=== PATIENT | male | born 1945 | race Caucasian/White ===

== ENCOUNTER 2017-03-08 22:17 | Inpatient (IN) | payer OTHER, MEDICARE ==
[~2017-03-08] VITALS: Ht 180.3 cm; Wt 110.7 kg
[~2017-03-08 22:17] MED LIST: ACETAMINOPHEN325 M1 PO; ASPIR 8181 MG PO; ASPIRIN325 PO; COLACE100 MG PO; DOXYCYCLINE 10100 M1 PO; DYAZIDE 37.5-21 EACH PO; FERROUS SULFAT325 MG PO; FLOMAX0.4 MG PO; GLIPIZIDE 10 MG10 MG PO; GLUCOPHAGE1000 MG PO; LANTUS100 UNIT/M SUBQ; MAG-AL PLUS XS30 ML PO; MAXZIDE-25 MG1 EACH PO; METFORMIN HCL500 MG PO; MOM PO; NAPROSYN500 MG PO; NEURONTIN 300300 M1 PO; NEURONTIN600 MG PO; NORCO 5-325 TA1 EACH PO; NOVOLOG100 UNIT/1 SUBQ; PANTOPRAZOLE SO40 M1 PO; PERCOCET 7.5-31 EACH PO; TRAMADOL 50 MG50 MG PO; TYLENOL325 MG PO; VITAMIN D310000 UNIT PO; XARELTO10 MG PO; ZESTRIL40 MG PO; ZOCOR40 MG PO; ZOCOR80 MG PO; ZOSYN 3.3753.375 GM IV
[2017-03-08 22:20] VITALS: BP 91/30
[2017-03-08 23:05] LABS: HEMATOCRIT 29.9 % (42.0-52.0); HEMOGLOBIN 9.4 gm/dL (14.0-18.0); MCH 26.2 pg (26.0-34.0); MCHC 31.3 g/dL (28.0-37.0); MCV 83.9 fL (80.0-100.0); MPV 8.8 fl. (7.2-11.1); NUCLEATED RBCS 0 /100WBC; PLATELET COUNT* 136 thou/uL (150-400); RBC 3.56 mil/uL (4.50-6.00); WBC 8.1 thou/uL (4.0-11.0)
[2017-03-08 23:12] LABS: CALCIUM 8.8 mg/dL (8.5-10.1); CREATININE 2.3 mg/dL (0.6-1.3); POTASSIUM 5.2 mmol/L (3.5-5.1)
--- NOTE | 2017-03-08 23:30 | NUR ---
PT GIVEN PATRICIO CRACKERS, JUICE AND TURKEY SANDWICH TO ADDRESS LOW BLOOD SUGAR. PT REPORTS TAKING INSULIN EARLIER THOUGH HE DIDN'T FEEL WELL AND DID NOT EAT.
[2017-03-09] MEDS ORDERED: ATORVASTATIN CA40 MG PO (00:08)
[2017-03-09 00:47] LABS: ABSOLUTE LYMPHOCYTES 0.6 thou/uL (0.8-5.3); ABSOLUTE MONOCYTES 0.2 thou/uL (0.0-1.2); ABSOLUTE NEUTROPHILS 7.4 thou/uL (1.6-8.1); ANISOCYTOSIS 1+; HYPOCHROMASIA 2+; PLATELET ESTIMATE DECREASED; TOXIC GRANULATION Occasional
[2017-03-09 04:00] VITALS: BP 105/36
--- NOTE | 2017-03-09 04:04 | NUR ---
PATIENT LEFT THE ICU VIA STRETCHER, ACCOMPANIED BY THE RN. VITALS FOLLOWS. HR 91 AND IRREGULAR, 97% ON 3L NC, 20R, 105/36 BP. TEMP OF 98.0. PATIENT AND FAMILY VERBALIZED UNDERSTANDING OF DISCHARGE
[2017-03-09 05:05] LABS: HEMATOCRIT 26.5 % (42.0-52.0); HEMOGLOBIN 8.5 gm/dL (14.0-18.0); MCH 27.1 pg (26.0-34.0); MCHC 32.1 g/dL (28.0-37.0); MCV 84.3 fL (80.0-100.0); MPV 9.6 fl. (7.2-11.1); RBC 3.14 mil/uL (4.50-6.00); RDW-CV 15.9 % (10.5-14.5)
[2017-03-09 05:26] LABS: ALBUMIN 2.5 g/dL (3.4-5.0); CREATININE 2.3 mg/dL (0.6-1.3); TOTAL BILIRUBIN 0.5 mg/dL (<0.1-1.0); TOTAL PROTEIN 5.8 g/dL (6.4-8.2)
[2017-03-09 06:00] VITALS: BP 117/37
[2017-03-09 06:01] LABS: URINE BILIRUBIN NEGATIVE (Negative); URINE BLOOD NEGATIVE (Negative); URINE CLARITY CLEAR; URINE COLOR DARK YELLOW; URINE GLUCOSE-RANDOM NEGATIVE (Negative); URINE KETONES TRACE (Negative); URINE LEUKOCYTES-REFLEX NEGATIVE (Negative); URINE NITRITE-REFLEX NEGATIVE (Negative); URINE PROTEIN 1+ (Negative); URINE SPECIFIC GRAVITY >= 1.030 (1.005-1.030)
--- NOTE | 2017-03-09 06:30 | NUR ---
ADMITTED PATIENT TO THE UNITAT 0300. NURSING ADMISSION ASSESSMENT COMPLETED DOCUMENTED. VITAL SIGNS REMAIN STABLE AND BLOOD GLUCOSE LEVELS REACHING NORMAL LIMITS. IV PATENT AND INFUSING. NO COMPLAINTS OF PAIN OR DISCOMFORT. ABLE TO URINATE INDEPENDENTLY WITH THE URINAL. PROSTHETIC AT BEDSIDE, PATIENT VERBALIZED UNDERSTANDING OF USING THE CALL LIGHT FOR HELP. OXYGEN HAS BEEN TITRATED FROM 4.5 L TO 3L. PATIENT SAT STAYING AT 97-99% HEARTRATE REMAINS SINUS ARRYTHMIA.
[2017-03-09 08:00] VITALS: BP 99/75
--- NOTE | 2017-03-09 11:30 | NUR ---
PT TO ROOM 219 VIA . PT DIFFICULT TO TRANSFER FROM WC TO BED AND REQUIRES MAXIMUM ASSIST. PT'S FAMILY ASKING FOR THERAPY AND TO CONTACT [facility] WHEN CELLULITIS HEALED FOR PROSTHESIS FITTING
[2017-03-09 12:00] VITALS: BP 119/80
--- NOTE | 2017-03-09 14:10 | NUR ---
pt had 15 beat Vtach. Pt sleeping and asymptomatic. Dr Seymour notified
[2017-03-09 15:05] LABS: CALCIUM 8.2 mg/dL (8.5-10.1); CREATININE 2.2 mg/dL (0.6-1.3)
[2017-03-09 16:47] VITALS: BP 142/49
--- NOTE | 2017-03-09 18:46 | NUR ---
PT UP TO ROOM THIS AM. PT MULTIPLE LOOSE STOOLS SINCE RECEIVING KAYEXYLATE. PT REQUIRED MAXIMUM ASSIST WITH GETTING ON BSC AND WAS INSTRUCTED TO USE BEDPAN FOR SAFETY. AND DAUGHTER IN LAW AT BS AND UPDATED ON PLAN OF CARE. PT A&OX3. TOLERATING PO WELL. VOIDING PER URINAL
[2017-03-09 20:00] VITALS: BP 141/56; BP 142/62
[2017-03-10] VITALS: BP 95/50
[2017-03-10 04:00] VITALS: BP 131/63
--- NOTE | 2017-03-10 05:07 | NUR ---
ALERT AND ORIENTED. AWAKE ON AND OFF THROUGHOUT NIGHT. ORDRER FOR IV LASIX 40 MG AND TO STOP FLUIDS. CXR ORDERED, UNCHANGED FROM THE ONE IN ER 03-09-17. CONT. RESP TXMTS. NO SIGN OF DISTRESS. CONT. WITH CURRENT PLAN OF CARE.
[2017-03-10 05:24] LABS: CALCIUM 8.4 mg/dL (8.5-10.1); CREATININE 1.8 mg/dL (0.6-1.3); POTASSIUM 4.2 mmol/L (3.5-5.1)
[2017-03-10 08:00] VITALS: BP 113/49
--- NOTE | 2017-03-10 08:00 | NUR ---
VSS, ASSUMED CARE IN THE AM, ASSESSMENT PERFORMED AND CHARTED, FALL PRECAUTIONS IN PLACE AND CALL LIGHT IN REACH. PT IS A&O4 AND UP WITH 2 OR TRANSFURS WITH ONE TO BEC. PT IS TRACING SR ON THE MONITOR AND DENIES ANY PAIN AND ON RA, PT GOAL IS TO IMPROVE BREATHING AND SIT UP IN CHAIR. WILL FOLLOW WITH PLAN OF CARE.
[2017-03-10 12:01] VITALS: BP 133/33
--- NOTE | 2017-03-10 13:48 | 2DMMODE ---
[place] [address] 2 D/M-MODE ECHOCARDIOGRAM Name: LEONIDAS MERCADO Room: [address] IN [facility]#: [id number] Admission: 03/09/17 Attend Phys: Bradford Flynn Discharge: Date of : 41 Date of Service: 03/10/17 1348 Report #: [id number] THIS REPORT FOR: //name// APPROVED REPORT Study performed: 03/10/2017 10:39:06 EXAM: Comprehensive 2D, Doppler, and color-flow Echocardiogram Patient Location: In-Patient Room #: 219 Status: routine BSA: 2.31 HR: 119 bpm BP: 113/49 mmHg Rhythm: NSR Other Information Study Quality: Good Indications Dyspnea Cellulitis 2D Dimensions LVEF(%): 84.08 (>50%) IVSd: 15.04 (7-11mm) LVOT Diam: 22.03 (18-24mm) LVDd: 44.95 mm PWd: 12.09 (7-11mm) Ascending Ao: 38.85 (22-36mm) LVDs: 21.16 (25-40mm) Aortic Root: 34.22 mm Gonzalez's LVEF: 84.08 % Volumes Left Atrial Volume (Systole) LA ESV Index: 33.40 mL/m2 Aortic Valve AoV Peak Isidoro.: 2.03 m/s AO Peak Gr.: 16.47 mmHg LVOT Max P.61 mmHg AO Mean Gr.: 9.41 mmHg LVOT Mean P.21 mmHg LVOT Max V: 1.29 m/s AO V2 VTI: 29.77 cm LVOT Mean V: 0.82 m/s DAHIANA (VTI): 3.26 cm2 LVOT V1 VTI: 25.47 [place] [address] 2 D/M-MODE ECHOCARDIOGRAM Name: LEONIDAS MERCADO Room: [address] IN ..#: [id number] Admission: 03/09/17 Attend Phys: Bradford Flynn Discharge: Date of : 41 Date of Service: 03/10/17 1348 Report #: [id number] E/A Ratio: 0.91 MV Decel. Time: 279.71 ms MV E Max Isidoro.: 1.21 m/s MV PHT: 81.12 ms MVA (PHT): 2.71 cm2 TDI E/Lateral E': 13.44 E/Medial E': 13.44 Medial E' Isidoro.: 0.09 m/s Lateral E' Isidoro.: 0.09 m/s Pulmonary Valve PV Peak Isidoro.: 1.31 m/s PV Peak Gr.: 6.84 mmHg Left Ventricle The left ventricle is normal size. There is normal LV segmental wall motion. Mild concentric left ventricular hypertrophy. Left ventricular systolic function is hyperdynamic. LVEF is >70%. Grade I - abnormal relaxation pattern. Right Ventricle The right ventricle is normal size. The right ventricular systolic function is normal. Atria Left atrium is mildly dilated. Right atrium is mildly dilated. Aortic Valve Mild aortic valve sclerosis. No aortic regurgitation is present. There is no aortic valvular stenosis. Mitral Valve There is mitral annular calcification. There is no mitral valve regurgitation noted. No evidence of mitral valve stenosis. Tricuspid Valve The tricuspid valve is normal in structure. Unable to assess PA pressure. Trace tricuspid regurgitation. Pulmonic Valve The pulmonary valve is normal in structure. There is no pulmonic valvular regurgitation. Great Vessels The aortic root is normal in size. IVC is [place] [address] 2 D/M-MODE ECHOCARDIOGRAM Name: LEONIDAS MERCADO Room: [address] IN [facility]#: [id number] Admission: 03/09/17 Attend Phys: Bradford Flynn Discharge: Date of : 41 Date of Service: 03/10/17 1348 Report #: [id number] collapses with >50% inspiration Pericardium There is no pericardial effusion. <Conclusion> The left ventricle is normal size. Mild concentric left ventricular hypertrophy. Left ventricular systolic function is hyperdynamic. LVEF is >70%. Grade I - abnormal relaxation pattern. Left atrium is mildly dilated. Right atrium is mildly dilated. Mild aortic valve sclerosis. There is mitral annular calcification. <ELECTRONICALLY SIGNED> By: Carson Bacon MD, FACC 03/10/17 1348 1348 1348 Carson Bacon MD, FACC /INF
--- NOTE | 2017-03-10 14:29 | NUR ---
CM ASSESSMENT: Pt is A&O. Resides at home with his . Normally pretty independent at home. Pt uses a walker and has a wc at home that he can use. Pt has right BKA, wears prosthesis. Hx of CHCS. Hx of acute rehab. Goal is to return home, Pt requiring 2 person assist to transfer. PT/OT ordered. Pt wants to return home at dc, may need skilled stay. Following for dc needs.
[2017-03-10 16:13] VITALS: BP 162/71
--- NOTE | 2017-03-10 18:37 | NUR ---
VSS, PT HAS BECOME CONFUSED WITH A TEMP, PT IS ON 2L NC PRN, IS UP WITH TWO TO CHAIR, AND IS INCONT. PT WALKED THE UNIT WITH PT/OT ON DAY OF CARE. PT HR IS ST ON THE MONITOR, PT GOAL IS TO LOWER TEMP.
[2017-03-10 19:15] VITALS: BP 121/42
[2017-03-10 23:28] LABS: INFLUENZA A ANTIGEN None Detected (None Detect); INFLUENZA B ANTIGEN None Detected (None Detect)
[2017-03-11] VITALS: BP 129/49
[2017-03-11 04:00] VITALS: BP 120/52
[2017-03-11 05:03] LABS: CALCIUM 8.8 mg/dL (8.5-10.1); CREATININE 1.6 mg/dL (0.6-1.3); MAGNESIUM 1.5 mg/dL (1.8-2.4); POTASSIUM 4.3 mmol/L (3.5-5.1)
[2017-03-11 08:00] VITALS: BP 121/59
--- NOTE | 2017-03-11 08:00 | NUR ---
PT RESTYING IN BED, APPEARS ALERT O X 4, DENIES CHEST PAIN, SOB, PAIN OR DISCOMFORT
[2017-03-11] MEDS ORDERED: KEFLEX500 M1 PO (08:22)
[2017-03-11] MEDS ORDERED: Florastor 250MG CAPS PO (08:22)
--- NOTE | 2017-03-11 11:00 | NUR ---
SPOEK WITH PT.AND ABOUT HOME HEALTH AT DISCHARGE. THEY WERE NOT SURE HE NEEDED IT. DISCUSSED BENEFITS OF HOME HEALTH. WORKS DURING THE DAY BUT PRIOR TO HOSPITALIZATION PT.WAS SELF SUFFICIENT AT HOME. OT CAME TO WORK WITH PT. OT SAID HE DID GREAT AND WAS ABLE TO GET OUT OF BED INDEPENDENTLY,THEREFORE PT.DECLINED HOME HEALTH.
[2017-03-11 11:16] VITALS: BP 121/59
[2017-03-11 14:28] VITALS: BP 121/59
--- NOTE | 2017-03-11 15:14 | NUR ---
DR DENSON, CALLED, REQ MEDICATION CLARIFICATION. PT TO SOP METFORMIN AND LISINOPRIL..RX KEFLEX CALLED TO [facility][HARMACY WAS ALREADDY CLOSED FOR TODAY, WOULDN'T REOPEN TIL Monday03-13-17
--- NOTE | 2017-03-12 04:02 | CON ---
[address] [address] CONSULTATION Name: LEONIDAS MERCADO Room: [address] IN ..#: [id number] Admission: 03/09/17 Attend Phys: Luis Herrmann Discharge: 03/11/17 Date of : 41 Report #: [id number] THIS REPORT FOR: //name// CC: Shirley Flynn DATE OF SERVICE: 03/11/2017 INFECTIOUS DISEASE CONSULTATION REASON FOR CONSULTATION: Fever. ATTENDING PHYSICIAN: Lamont Seymour M.D. HISTORY OF PRESENT ILLNESS: A 71-year-old white man is admitted with some redness and swelling of right BKA. The patient diagnosed to have cellulitis of the right BKA stump. He is started on Rocephin and vancomycin. Currently, he is feeling fine. Denies pain at this time. He has mild dry cough. PAST MEDICAL HISTORY: Diabetes mellitus for a number of years. Chronic kidney disease. Right BKA. Obesity. Hypertension. Cigarette smoking. Peripheral vascular disease. DRUG ALLERGIES: SULFA DRUGS. MEDICATIONS: The patient is on vancomycin 1 gram IV every 12 hours, Rocephin 1 gram IV daily, also receiving saccharomyces boulardii, aspirin. pantoprazole, gabapentin, enoxaparin, insulin lispro per sliding scale, Atrovent and albuterol inhalation treatments, p.r.n. promethazine, ondansetron, bisacodyl, magnesium hydroxide, melatonin, Benadryl and morphine sulfate. SOCIAL HISTORY: for 40 years. Retired. Grown children. REVIEW OF SYSTEMS: See H and P and as above. PHYSICAL EXAMINATION: GENERAL: A well-developed, overweight man. VITAL SIGNS: Temperature maximum 100.2, down to 98.2; pulse 67; respirations 17 and BP 120/52. HEENT: Within range. NECK: Supple. LUNGS: Clear. HEART: S1, S2. No gallop. ABDOMEN: Obese, soft. No masses or megaly. GENITALIA: Deferred. RECTAL EXAMINATION: [place] [address] CONSULTATION Name: LEONIDAS MERCADO Room: [address]#: [id number] Admission: 03/09/17 Attend Phys: Luis Herrmann Discharge: 03/11/17 Date of : 41 Report #: [id number] EXTREMITIES: Right BKA stump has mild erythema over the tip and lateral aspect of the stump and this area is not particularly tender. The left leg with no open wounds. NEUROLOGIC: Grossly within normal limits. LABORATORY DATA: Sodium 143, potassium 4.2, CO2 of 25, BUN 30, creatinine 1.8 and glucose 173. Albumin 2.5 g/dL. WBC 7000, hemoglobin 8.5 and platelets 119,000. White blood cell count differential on the date of admission revealed 91% neutrophils. Rapid influenza test, not detected. MRSA screen negative. Urinalysis revealed 1+ protein, trace ketones, otherwise negative. Blood cultures x 2 obtained on admission, they are negative so far. RADIOLOGY EVALUATION: X-ray of the tibia-fibula left and left stump revealed no significant abnormalities. Vascular calcifications noted. Chest x-ray revealed cardiomegaly, vascular congestion, bibasilar atelectasis and no significant changes compared to previously. ASSESSMENT: 1. Fever, possibly secondary to cellulitis, right below-knee amputation. 2. History of right below-knee amputation. 3. Peripheral vascular disease. 4. Diabetes mellitus. 5. Chronic kidney disease. 6. Hypoalbuminemia. 7. Obesity. SUGGESTIONS: Recommend for time being should continue coverage with Rocephin and vancomycin. If cultures remain negative and thus indicating no evidence of MRSA, would continue treatment with Rocephin [address] Flynn, thank you for requesting our suggestions in the care of your patient. <ELECTRONICALLY SIGNED> By: Jesse Munoz MD 03/12/17 0402 0521 0829Jesse Munoz MD /vidhi
--- NOTE | 2017-03-20 09:12 | CON ---
[address] [address] CONSULTATION Name: LEONIDAS MERCADO Room: [address]#: [id number] Admission: 03/09/17 Attend Phys: Luis Herrmann Discharge: 03/11/17 Date of : 41 Report #: [id number] THIS REPORT FOR: //name// CC: Shirley Flynn DATE OF SERVICE: 03/09/2017 REQUESTING PHYSICIAN: Lamont Seymour M.D. REASON FOR CONSULTATION: Acute kidney injury, chronic kidney disease and hyperkalemia. HISTORY OF PRESENT ILLNESS: The patient is a 71-year-old gentleman with medical history significant for diabetes mellitus type 2, history of hypertension, history of morbid obesity, history of chronic kidney disease stage 3 with baseline creatinine around 2-2.3, presented with complaining of lower extremities stump pain and redness. The patient states that he has some fever. He told me that he twisted his right leg and then developed this pain in his stump. So, he was admitted with a diagnosis of cellulitis of his leg and sepsis. He was hypotensive on admission. He had potassium level, which was 6 and I was consulted. PAST MEDICAL HISTORY: As mentioned earlier. SOCIAL HISTORY: No current tobacco or alcohol abuse. FAMILY HISTORY: Noncontributory. REVIEW OF SYSTEMS: Positive for symptoms as mentioned earlier. MEDICATIONS: Reviewed from my standpoint, he was on lisinopril 40 mg a day and Maxzide. PHYSICAL EXAMINATION: GENERAL: Awake, alert, oriented, in no acute distress. VITAL SIGNS: His blood pressure now is 119/80, which was 91/30 on admission. His temperature now is 36.9 and he was afebrile from the beginning, heart rate 94. HEENT: Pupils are round. NECK: Fatty. LUNGS: Decreased air movements. CARDIOVASCULAR: Irregular rate. ABDOMEN: Obese, soft. EXTREMITIES: Right leg has below knee amputation and the stump area has some edema and erythema [place] [address] CONSULTATION Name: LEONIDAS MERCADO Room: [address]#: [id number] Admission: 03/09/17 Attend Phys: Luis Herrmann Discharge: 03/11/17 Date of : 41 Report #: [id number] LABORATORY DATA: His hemoglobin is 8.5, white count 7.0. Potassium 5.0 ____ 6.0 yesterday, BUN 36, creatinine 2.2. ASSESSMENT: A 71-year-old diabetic with chronic kidney disease stage 3, admitted with redness, hypotension and some edema of his right leg stump and mildly hyperkalemic. I think he may have some acute component of his kidney problem due to hypotension. His hyperkalemia is probably due to lisinopril and hypotension with acute kidney injury. So, plan for now, I would keep him off SHEELA inhibitors or angiotensin receptor zenaida. Keep him on low potassium diet and follow on his labs. Thank you very much for asking my opinion on the patient. <ELECTRONICALLY SIGNED> By: Gavino Coelho MD 03/20/17 0912 1611 0113Alexdagoberto Coelho MD /PMT
== END 2017-03-11 15:07 | disposition home or self-care (01) | DRG 871 ==
LOC: M.ERS 22:17 → M.ICU 03-09 02:08 → M.TBA-ER 03-09 02:08 → M.ICU 03-09 02:48 → M.2W 03-09 11:15
PROVIDERS: Emergency Medicine; Internal Medicine; Internal Medicine Nephrology; Specialist; ADMIT Internal Medicine
DX: A41.9 Sepsis, unspecified organism (principal); N17.0 Acute kidney failure with tubular necrosis; L03.115 Cellulitis of right lower limb; E11.51 Type 2 diabetes mellitus with diabetic peripheral angiopathy without gangrene; E78.5 Hyperlipidemia, unspecified; E66.01 Morbid (severe) obesity due to excess calories; N18.3 Chronic kidney disease, stage 3 (moderate); I12.9 Hypertensive chronic kidney disease with stage 1 through stage 4 chronic kidney disease, or unspecified chronic kidney disease; E11.22 Type 2 diabetes mellitus with diabetic chronic kidney disease; E87.5 Hyperkalemia; E88.09 Other disorders of plasma-protein metabolism, not elsewhere classified; J44.9 Chronic obstructive pulmonary disease, unspecified; E11.40 Type 2 diabetes mellitus with diabetic neuropathy, unspecified; I95.89 Other hypotension; T50.995A Adverse effect of other drugs, medicaments and biological substances, initial encounter; Z68.34 Body mass index [BMI] 34.0-34.9, adult; Z89.511 Acquired absence of right leg below knee; Z98.52 Vasectomy status; Z87.891 Personal history of nicotine dependence; Z88.2 Allergy status to sulfonamides; Y92.89 Other specified places as the place of occurrence of the external cause; Z79.82 Long term (current) use of aspirin; Z79.4 Long term (current) use of insulin; Z79.899 Other long term (current) drug therapy

== ENCOUNTER 2017-11-27 19:03 | Emergency (ER) | payer OTHER, MEDICARE ==
[~2017-11-27] VITALS: Ht 177.8 cm; Wt 115.2 kg
[~2017-11-27 19:03] MED LIST changes: +ATORVASTATIN CA40 MG PO; +Florastor 250MG CAPS PO; +KEFLEX500 M1 PO
[2017-11-27 19:46] LABS: ABSOLUTE EOSINOPHILS 0.1 thou/uL (0.0-0.7); ABSOLUTE LYMPHOCYTES 0.8 thou/uL (0.8-5.3); ABSOLUTE MONOCYTES 0.2 thou/uL (0.0-1.2); ABSOLUTE NEUTROPHILS 1.8 thou/uL (1.6-8.1); BASOPHILS 0.5 %; EOSINOPHILS 2.2 %; HEMOGLOBIN 8.4 gm/dL (14.0-18.0); LYMPHOCYTES 26.7 %; MCH 23.4 pg (26.0-34.0); MCV 75.4 fL (80.0-100.0); MONOCYTES 8.3 %; MPV 8.7 fl. (7.2-11.1); NUCLEATED RBCS 0 /100WBC; PLATELET COUNT* 91 thou/uL (150-400); POLYS 62.3 %; RBC 3.59 mil/uL (4.50-6.00); RDW-CV 16.7 % (10.5-14.5); WBC 2.9 thou/uL (4.0-11.0)
[2017-11-27 19:55] LABS: ANION GAP 11 mmol/L (7-16); BUN 17 mg/dL (7-18); CHLORIDE 104 mmol/L (98-107); CO2 24 mmol/L (21-32); CREATININE 1.6 mg/dL (0.6-1.3); GLUCOSE 268 mg/dL (70-99); POTASSIUM 4.9 mmol/L (3.5-5.1); SODIUM 139 mmol/L (136-145)
[2017-11-27 20:05] LABS: ALBUMIN 3.1 g/dL (3.4-5.0); ALKALINE PHOSPHATASE 75 U/L (46-116); LIPASE 287 U/L (73-393); NT-PRO BRAIN NAT PEPTIDE 163 pg/mL (<300); SGOT 17 U/L (15-37); SGPT 21 U/L (30-65); TOTAL BILIRUBIN 0.4 mg/dL (<0.1-1.0); TROPONIN-I LEVEL <0.06 ng/mL (<0.06)
[2017-11-27 20:28] VITALS: BP 190/55
--- NOTE | 2017-11-28 11:55 | EKG ---
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 Repairer: TONIO : 1945 Requested By: Vahe Barker Order Number: [id number] MD: Sadiq Morales Measurements Intervals [place] Rate: 82 P: 0 ID: 142 QRS: 46 QRSD: 90 T: 61 QT: 389 QTc: 455 Interpretive Statements Sinus rhythm Multiple premature complexes, vent & supraven Compared to ECG 10/26/2013 10:12:23 No significant changes Electronically Signed On 11-28-2017 11:55:43 CDT by Sadiq Morales [email or web address] <ELECTRONICALLY SIGNED> By: Sadiq Morales MD, [facility] 11/28/17 1155 31 31 Sadiq Morales MD, FACC /EPI
== END 2017-11-27 20:32 | disposition home or self-care (01) ==
LOC: M.ERS 19:03
PROVIDERS: Emergency Medicine
DX: D64.9 Anemia, unspecified (principal); E78.5 Hyperlipidemia, unspecified; J44.9 Chronic obstructive pulmonary disease, unspecified; I12.9 Hypertensive chronic kidney disease with stage 1 through stage 4 chronic kidney disease, or unspecified chronic kidney disease; E11.22 Type 2 diabetes mellitus with diabetic chronic kidney disease; N18.3 Chronic kidney disease, stage 3 (moderate); Z88.2 Allergy status to sulfonamides; Z79.4 Long term (current) use of insulin

== ENCOUNTER 2018-03-29 08:01 | Inpatient (IN) | payer OTHER, MEDICARE ==
[~2018-03-29] VITALS: Ht 177.8 cm; Wt 108.4 kg
[2018-03-29 08:03] VITALS: BP 171/73
[2018-03-29] MEDS ORDERED: METFORMIN HCL500 MG PO (08:11)
[2018-03-29] MEDS ORDERED: LISINOPRIL40 MG PO (08:13)
[2018-03-29 08:41] LABS: ABSOLUTE LYMPHOCYTES 0.7 thou/uL (0.8-5.3); ABSOLUTE MONOCYTES 0.3 thou/uL (0.0-1.2); ABSOLUTE NEUTROPHILS 3.8 thou/uL (1.6-8.1); BASOPHILS 0.4 %; EOSINOPHILS 0.6 %; HEMATOCRIT 28.3 % (42.0-52.0); HEMOGLOBIN 8.8 gm/dL (14.0-18.0); LYMPHOCYTES 13.6 %; MCH 24.6 pg (26.0-34.0); MCV 79.3 fL (80.0-100.0); MPV 8.7 fl. (7.2-11.1); NUCLEATED RBCS 0 /100WBC; PLATELET COUNT* 96 thou/uL (150-400); POLYS 78.4 %; RBC 3.57 mil/uL (4.50-6.00); RDW-CV 17.4 % (10.5-14.5); WBC 4.8 thou/uL (4.0-11.0)
[2018-03-29 08:48] LABS: BE -0.9 mmol/L (-2 to +3); PCO2 46.8 mmHg (35.0-45.0); pH 7.344 (7.340-7.450)
[2018-03-29 08:51] LABS: PO2 54.7 mmHg (75.0-100.0)
[2018-03-29 09:03] LABS: CALCIUM 8.4 mg/dL (8.5-10.1); CREATININE 1.6 mg/dL (0.6-1.3); POTASSIUM 5.7 mmol/L (3.5-5.1)
[2018-03-29 09:08] LABS: TROPONIN-I LEVEL 0.12 ng/mL (<0.06)
[2018-03-29 09:09] LABS: ALBUMIN 3.3 g/dL (3.4-5.0); MAGNESIUM 1.5 mg/dL (1.8-2.4); TOTAL BILIRUBIN 0.4 mg/dL (<0.1-1.0); TOTAL PROTEIN 7.3 g/dL (6.4-8.2)
[2018-03-29 09:27] LABS: INFLUENZA A ANTIGEN None Detected (None Detect); INFLUENZA B ANTIGEN None Detected (None Detect)
[2018-03-29 09:28] LABS: URINE BILIRUBIN NEGATIVE (Negative); URINE BLOOD TRACE (Negative); URINE CLARITY CLEAR; URINE COLOR YELLOW; URINE GLUCOSE-RANDOM NEGATIVE (Negative); URINE KETONES NEGATIVE (Negative); URINE LEUKOCYTES-REFLEX TRACE (Negative); URINE NITRITE-REFLEX NEGATIVE (Negative); URINE PROTEIN NEGATIVE (Negative); URINE SPECIFIC GRAVITY 1.015 (1.005-1.030); URINE UROBILINOGEN 0.2 E.U./dl (0.2-1.0)
[2018-03-29 09:35] LABS: SQUAMOUS 0-3 Few /LPF (0-3); URINE WBC-REFLEX 0-5 Rare /HPF (0-5)
[2018-03-29 09:36] LABS: BACTERIA-REFLEX 1-9 Few /HPF (None Seen); CASTS None Seen /LPF (None Seen); CRYSTALS None Seen /LPF (None Seen); MUCUS None Seen strn/LPF (None Seen); URINE RBC 0-2 Rare /HPF (0-2)
[2018-03-29 14:20] VITALS: BP 106/45
[2018-03-29 14:38] VITALS: BP 129/60
[2018-03-29 14:50] VITALS: BP 129/60
--- NOTE | 2018-03-29 15:40 | EKG ---
[place] [address] ELECTROCARDIOGRAM REPORT Name: LEONIDAS MERCADO Room: [address] ADM IN M.R.#: [id number] Admission: 03/29/18 Attend Phys: Hannah Villegas MD Discharge: Date of : 41 Report #: [id number] THIS REPORT FOR: //name// [facility] ED Test Date: 2018-03-29 Test Time: 08:07:52 Pat Name: LEONIDAS CORTEZISAURA Department: Room: [facility] Gender: M Manual Arts Teacher: : 1945 Requested By: Veronica Smith Order Number: [id number] MD: Girogi Adame Measurements Intervals [place] Rate: 99 P: -22 MA: 131 QRS: 54 QRSD: 89 T: 46 QT: 332 QTc: 426 Interpretive Statements Sinus tachycardia Ventricular trigeminy Compared to ECG 11/27/2017 19:32:33 Ventricular premature complex(es) now present Electronically Signed On 03-29-2018 15:40:31 WET CLEANER MACHINE by iGorgi Adame [email or web address] <ELECTRONICALLY SIGNED> By: Giorgi Adame MD, [facility] 03/29/18 1540 0807 0807 Giorgi Adame MD, [facility] /EPI
[2018-03-29 17:12] LABS: CHOLESTEROL 195 mg/dL (<200); HDL CHOLESTEROL 37 mg/dL (>40); LDL CHOLESTEROL 131 mg/dL (<100); SERUM ASSESSMENT CLEAR; TC:HDL 5.3 Ratio (Not establshd); TRIGLYCERIDE 137 mg/dL (<150); VLDL 27 mg/dL (<40)
--- NOTE | 2018-03-29 17:22 | 2DMMODE ---
[place] [address] 2 D/M-MODE ECHOCARDIOGRAM Name: LEONIDAS MERCADO Room: [address] IN [facility]#: [id number] Admission: 03/29/18 Attend Phys: Hannah Villegas, Discharge: Date of : 41 Date of Service: 03/29/18 1722 Report #: [id number] THIS REPORT FOR: //name// APPROVED REPORT Study performed: 03/29/2018 16:09:28 EXAM: Comprehensive 2D, Doppler, and color-flow Echocardiogram Patient Location: In-Patient Room #: 210 Status: routine BSA: 2.11 HR: 87 bpm BP: 129/60 mmHg Rhythm: NSR Other Information Study Quality: Good Indications Atrial Fibrillation 2D Dimensions IVSd: 12.89 (7-11mm) LVOT Diam: 19.99 (18-24mm) LVDd: 34.10 mm PWd: 12.16 (7-11mm) Ascending Ao: 36.91 (22-36mm) LVDs: 23.53 (25-40mm) Aortic Root: 34.83 mm Volumes Left Atrial Volume (Systole) LA ESV Index: 34.90 mL/m2 Aortic Valve AoV Peak Isidoro.: 1.53 m/s AO Peak Gr.: 9.34 mmHg LVOT Max P.05 mmHg AO Mean Gr.: 5.17 mmHg LVOT Mean P.15 mmHg LVOT Max V: 1.33 m/s AO V2 VTI: 29.78 cm LVOT Mean V: 0.80 m/s DAHIANA (VTI): 2.93 cm2 LVOT V1 VTI: 27.78 cm Mitral Valve E/A Ratio: 1.15 MV Decel. Time: 238.27 ms MV E Max Isidoro.: 1.24 m/[place] [address] 2 D/M-MODE ECHOCARDIOGRAM Name: LEONIDAS MERCADO Room: [address] IN ..#: [id number] Admission: 03/29/18 Attend Phys: Hannah Villegas, Discharge: Date of : 41 Date of Service: 03/29/18 1722 Report #: [id number] MV PHT: 69.10 ms MVA (PHT): 3.18 cm2 TDI E/Lateral E': 13.78 E/Medial E': 11.27 Medial E' Isidoro.: 0.11 m/s Lateral E' Isidoro.: 0.09 m/s Pulmonary Valve PV Peak Isidoro.: 1.15 m/s PV Peak Gr.: 5.28 mmHg Tricuspid Valve RAP Estimate: 5.00 mmHg TR Peak Gr.: 36.75 mmHg RVSP: 41.00 mmHg PA Pressure: 41.00 mmHg Left Ventricle The left ventricle is normal size. There is normal LV segmental wall motion. Borderline concentric left ventricular hypertrophy. Left ventricular systolic function is normal. The left ventricular ejection fraction is within the normal range. LVEF is 65%. The left ventricular diastolic function is normal. Right Ventricle The right ventricle is normal size. The right ventricular systolic function is normal. Atria Left atrium is at the upper limits of normal. The right atrium size is normal. Aortic Valve Mild aortic valve sclerosis. No aortic regurgitation is present. There is no aortic valvular stenosis. Mitral Valve There is mitral annular calcification. There is no mitral valve regurgitation noted. No evidence of mitral valve stenosis. Tricuspid Valve The tricuspid valve is normal in structure. Trace tricuspid regurgitation. Mild pulmonary hypertension. Pulmonic Valve The pulmonary valve is normal in structure. There is no pulmonic [place] [address] 2 D/M-MODE ECHOCARDIOGRAM Name: LEONIDAS MERCADO Room: [address]#: [id number] Admission: 03/29/18 Attend Phys: Hannah Villegas, Discharge: Date of : 41 Date of Service: 03/29/18 1722 Report #: [id number] Great Vessels The aortic root is normal in size. IVC is normal in size and collapses >50% with inspiration. Pericardium There is no pericardial effusion. <Conclusion> The left ventricle is normal size. Borderline concentric left ventricular hypertrophy. Left ventricular systolic function is normal. The left ventricular ejection fraction is within the normal range. LVEF is 65%. The left ventricular diastolic function is normal. The right ventricle is normal size. Left atrium is at the upper limits of normal. Mild aortic valve sclerosis. No aortic regurgitation is present. There is no aortic valvular stenosis. There is mitral annular calcification. There is no mitral valve regurgitation noted. No evidence of mitral valve stenosis. The tricuspid valve is normal in structure. Trace tricuspid regurgitation. Mild pulmonary hypertension. IVC is normal in size and collapses >50% with inspiration. There is no pericardial effusion. There is normal LV segmental wall motion. <ELECTRONICALLY SIGNED> By: Giorgi Adame MD, FACC 03/29/181721 21 21 Giorgi Adame MD, FACC /INF
[2018-03-29 20:00] VITALS: BP 112/68; BP 140/56
[2018-03-30] VITALS: BP 162/72
[2018-03-30 04:00] VITALS: BP 159/65
[2018-03-30 05:40] LABS: HEMATOCRIT 26.7 % (42.0-52.0); HEMOGLOBIN 8.3 gm/dL (14.0-18.0); MCH 24.7 pg (26.0-34.0); MCHC 31.2 g/dL (28.0-37.0); MCV 79.2 fL (80.0-100.0); MPV 9.5 fl. (7.2-11.1); RBC 3.37 mil/uL (4.50-6.00); RDW-CV 17.2 % (10.5-14.5); WBC 3.6 thou/uL (4.0-11.0)
[2018-03-30 06:02] LABS: CALCIUM 8.1 mg/dL (8.5-10.1); CREATININE 1.4 mg/dL (0.6-1.3); MAGNESIUM 1.6 mg/dL (1.8-2.4); POTASSIUM 5.5 mmol/L (3.5-5.1)
[2018-03-30 08:00] VITALS: BP 150/68
--- NOTE | 2018-03-30 08:38 | EKG ---
[place] [address] ELECTROCARDIOGRAM REPORT Name: LEONIDAS MERCADO Room: [address] ADM IN M.R.#: [id number] Admission: 03/29/18 Attend Phys: Hannah Villegas MD Discharge: Date of : 41 Report #: [id number] THIS REPORT FOR: //name// [facility] Test Date: 2018-03-29 Test Time: 16:06:33 Pat Name: LEONIDAS MERCADO Department: Room: [address] Gender: M Glycerin Operator: : 1945 Requested By: Lamont Seymour Order Number: [id number] Gisel MD: René Gusman Measurements Intervals [place] Rate: 72 P: 20 MO: 133 QRS: 42 QRSD: 88 T: 54 QT: 413 QTc: 453 Interpretive Statements Sinus rhythm Compared to ECG 03/29/2018 08:07:52 Sinus tachycardia no longer present Ventricular premature complex(es) no longer present Electronically Signed On 03-30-2018 8:38:02 INPATIENT CARE MANAGER RN by René Gusman [email or web address] <ELECTRONICALLY SIGNED> By: René Gusman MD, [facility] 03/30/1838 1606 1606 René Gusman MD, [facility] /EPI
[2018-03-30 12:00] VITALS: BP 125/47
[2018-03-30 16:00] VITALS: BP 125/41
[2018-03-30 20:00] VITALS: BP 147/61
[2018-03-31] VITALS (7 sets, daily range): BP systolic 107–157; BP diastolic 46–61
[2018-03-31 04:54] LABS: HEMATOCRIT 25.9 % (42.0-52.0); HEMOGLOBIN 8.1 gm/dL (14.0-18.0); MCH 24.5 pg (26.0-34.0); MCHC 31.3 g/dL (28.0-37.0); MCV 78.4 fL (80.0-100.0); MPV 9.2 fl. (7.2-11.1); RBC 3.31 mil/uL (4.50-6.00); RDW-CV 17.3 % (10.5-14.5); WBC 4.3 thou/uL (4.0-11.0)
[2018-03-31 05:13] LABS: CALCIUM 8.6 mg/dL (8.5-10.1); CREATININE 1.5 mg/dL (0.6-1.3); MAGNESIUM 1.9 mg/dL (1.8-2.4)
[2018-03-31] MEDS ORDERED: CEFDINIR300 MG PO (10:33)
[2018-03-31] MEDS ORDERED: ASPIR 8181 MG PO (10:33)
[2018-03-31] MEDS ORDERED: IPRAT-ALBUT 0.5-3 ML INH (10:33)
[2018-03-31] MEDS ORDERED: PULMICORT0.5 MG/22 INH (10:33)
[2018-03-31] MEDS ORDERED: PREDNISONE 10 M10 MG PO (10:33)
[2018-03-31] MEDS ORDERED: AZITHROMYCIN 2250 MG PO (10:33)
[2018-04-01] VITALS: BP 132/64
[2018-04-01 04:00] VITALS: BP 159/72
[2018-04-01 04:37] LABS: HEMATOCRIT 24.6 % (42.0-52.0); HEMOGLOBIN 7.7 gm/dL (14.0-18.0); MCH 24.5 pg (26.0-34.0); MCHC 31.4 g/dL (28.0-37.0); MCV 78.2 fL (80.0-100.0); MPV 8.9 fl. (7.2-11.1); RBC 3.15 mil/uL (4.50-6.00); RDW-CV 17.4 % (10.5-14.5); WBC 4.3 thou/uL (4.0-11.0)
[2018-04-01 05:08] LABS: CALCIUM 8.6 mg/dL (8.5-10.1); CREATININE 1.6 mg/dL (0.6-1.3); MAGNESIUM 1.7 mg/dL (1.8-2.4); TOTAL BILIRUBIN 0.3 mg/dL (<0.1-1.0); TOTAL PROTEIN 6.7 g/dL (6.4-8.2)
[2018-04-01 08:00] VITALS: BP 153/49
[2018-04-01 10:10] VITALS: BP 159/72
[2018-04-01 11:45] VITALS: BP 136/52
== END 2018-04-01 13:30 | disposition home health service (06) | DRG 871 ==
LOC: M.ERS 08:01 → M.TBA-ER 11:44 → M.2W 11:44
PROVIDERS: Internal Medicine; Personal Emergency Response Attendant; Registered Nurse; ADMIT Internal Medicine
DX: A41.9 Sepsis, unspecified organism (principal); J96.01 Acute respiratory failure with hypoxia; J15.6 Pneumonia due to other Gram-negative bacteria; I50.32 Chronic diastolic (congestive) heart failure; I13.0 Hypertensive heart and chronic kidney disease with heart failure and stage 1 through stage 4 chronic kidney disease, or unspecified chronic kidney disease; J44.0 Chronic obstructive pulmonary disease with (acute) lower respiratory infection; J44.1 Chronic obstructive pulmonary disease with (acute) exacerbation; E11.51 Type 2 diabetes mellitus with diabetic peripheral angiopathy without gangrene; E78.5 Hyperlipidemia, unspecified; E11.40 Type 2 diabetes mellitus with diabetic neuropathy, unspecified; I49.3 Ventricular premature depolarization; E87.5 Hyperkalemia; I27.20 Pulmonary hypertension, unspecified; E11.22 Type 2 diabetes mellitus with diabetic chronic kidney disease; N18.3 Chronic kidney disease, stage 3 (moderate); Z89.511 Acquired absence of right leg below knee; Z87.891 Personal history of nicotine dependence; Z79.4 Long term (current) use of insulin; Z79.82 Long term (current) use of aspirin; Z79.899 Other long term (current) drug therapy; Z88.2 Allergy status to sulfonamides

== ENCOUNTER 2018-04-16 13:30 | Inpatient (IN) | payer OTHER, MEDICARE ==
[~2018-04-16] VITALS: Ht 177.8 cm; Wt 108.0 kg
[2018-04-16] VITALS (9 sets, daily range): BP systolic 95–137; BP diastolic 23–64
--- NOTE | ~2018-04-16 | PROC ---
[address] [address] PROCEDURE REPORT Name: LEONIDAS MERCADO Room: [address] ADM IN M.R.#: [id number] Admission: 04/16/18 Attend Phys: Maurizio Hagen MD Discharge: Date of : 41 Report #: [id number] THIS REPORT FOR: //name// For GI report, please see the Provation report in Perceptive 7 content. By: 0835Medical Records Staff HAILEE /DOMINIK
[~2018-04-16 13:30] MED LIST changes: +AZITHROMYCIN 2250 MG PO; +CEFDINIR300 MG PO; +IPRAT-ALBUT 0.5-3 ML INH; +LISINOPRIL40 MG PO; +PREDNISONE 10 M10 MG PO; +PULMICORT0.5 MG/22 INH
[2018-04-16 13:50] LABS: HEMATOCRIT 20.8 % (42.0-52.0); MCH 23.1 pg (26.0-34.0); MCHC 30.6 g/dL (28.0-37.0); MCV 75.3 fL (80.0-100.0); MPV 8.2 fl. (7.2-11.1); NUCLEATED RBCS 0 /100WBC; PLATELET COUNT* 122 thou/uL (150-400); RBC 2.76 mil/uL (4.50-6.00); RDW-CV 17.3 % (10.5-14.5); WBC 10.8 thou/uL (4.0-11.0)
[2018-04-16 13:52] LABS: HEMOGLOBIN 6.4 gm/dL (14.0-18.0)
[2018-04-16 13:59] LABS: APTT 24.7 Seconds (25.0-31.3); INR 1.2; PROTIME 11.8 Seconds (9.20-11.50)
[2018-04-16 14:07] LABS: ABSOLUTE LYMPHOCYTES 0.8 thou/uL (0.8-5.3); ABSOLUTE MONOCYTES 0.4 thou/uL (0.0-1.2); ABSOLUTE NEUTROPHILS 9.6 thou/uL (1.6-8.1); ALBUMIN 2.9 g/dL (3.4-5.0); ALKALINE PHOSPHATASE 79 U/L (46-116); ANION GAP 10 mmol/L (7-16); BUN 23 mg/dL (7-18); CALCIUM 8.4 mg/dL (8.5-10.1); CHLORIDE 107 mmol/L (98-107); CO2 21 mmol/L (21-32); GLUCOSE 207 mg/dL (70-99); HYPOCHROMASIA 3+; NT-PRO BRAIN NAT PEPTIDE 306 pg/mL (<300); PLATELET ESTIMATE DECREASED; SGOT 15 U/L (15-37); SGPT 25 U/L (30-65); SODIUM 138 mmol/L (136-145); TOTAL BILIRUBIN 0.9 mg/dL (<0.1-1.0); TROPONIN-I LEVEL <0.06 ng/mL (<0.06)
[2018-04-16 14:08] LABS: ANISOCYTOSIS 2+; MICROCYTES 2+; POTASSIUM 6.7 mmol/L (3.5-5.1)
--- NOTE | 2018-04-16 16:05 | EKG ---
[place] [address] ELECTROCARDIOGRAM REPORT Name: LEONIDAS MERCADO Room: [place] [address] ADM IN [facility].#: [id number] Admission: 04/16/18 Attend Phys: Maurizio Hagen MD Discharge: Date of : 41 Report #: [id number] THIS REPORT FOR: //name// [facility] ED Test Date: 2018-04-16 Test Time: 13:34:32 Pat Name: LEONIDAS MERCADO Department: Room: [facility] Gender: M Training And Quality Manager: [place] : 1945 Requested By: Sarwat Cadena Order Number: [id number] MD: René Gusman Measurements Intervals [place] Rate: 88 P: -5 DE: 146 QRS: 48 QRSD: 85 T: 64 QT: 346 QTc: 419 Interpretive Statements Sinus rhythm Atrial premature complex Baseline wander in lead(s) V4 Compared to ECG 03/29/2018 16:06:33 Atrial premature complex(es) now present Electronically Signed On 04-16-2018 16:05:38 COMMUNITY HEALTH EDUCATION COORDINATOR by René Gusman [email or web address] <ELECTRONICALLY SIGNED> By: René Gusman MD, [facility] 04/16/18 1605 1334 1334 René Gusman MD, [facility] /EPI
[2018-04-16 16:27] LABS: URINE BILIRUBIN NEGATIVE (Negative); URINE BLOOD TRACE (Negative); URINE COLOR YELLOW; URINE GLUCOSE-RANDOM NEGATIVE (Negative); URINE KETONES NEGATIVE (Negative); URINE LEUKOCYTES-REFLEX 1+ (Negative); URINE NITRITE-REFLEX NEGATIVE (Negative); URINE PROTEIN TRACE (Negative); URINE SPECIFIC GRAVITY 1.015 (1.005-1.030); URINE UROBILINOGEN 0.2 E.U./dl (0.2-1.0)
[2018-04-16 16:32] LABS: URINE CLARITY HAZY
[2018-04-16 16:34] LABS: CASTS None Seen /LPF (None Seen); CRYSTALS None Seen /LPF (None Seen); SQUAMOUS 4-10 Moderate /LPF (0-3); URINE RBC None Seen /HPF (0-2); URINE WBC-REFLEX >25 Many /HPF (0-5)
[2018-04-16 17:52] LABS: CALCIUM 8.5 mg/dL (8.5-10.1); CREATININE 1.9 mg/dL (0.6-1.3); POTASSIUM 5.7 mmol/L (3.5-5.1)
--- NOTE | 2018-04-16 20:07 | NUR ---
RECEIVED REPORT FROM ER NURSE. ASSESSMENT CHARTED. AFEBRILE. CONSULTS CALLED. NPO. 1 UNIT OF PRBCS INFUSING NOW. TOLERATING WELL. PRESSURES SOFT. CENTRAL LINE PLACED. TOLERATED WELL. HERNANDEZ PLACED. REPORT GIVEN TO JENNIFER LEAL.
[2018-04-17] VITALS (14 sets, daily range): BP systolic 102–167; BP diastolic 45–84
[2018-04-17 05:53] LABS: ABSOLUTE LYMPHOCYTES 0.6 thou/uL (0.8-5.3); ABSOLUTE MONOCYTES 0.3 thou/uL (0.0-1.2); ABSOLUTE NEUTROPHILS 2.8 thou/uL (1.6-8.1); BASOPHILS 0.2 %; EOSINOPHILS 0.9 %; HEMATOCRIT 20.7 % (42.0-52.0); LYMPHOCYTES 16.8 %; MCH 23.7 pg (26.0-34.0); MCHC 31.3 g/dL (28.0-37.0); MCV 75.6 fL (80.0-100.0); MONOCYTES 7.5 %; MPV 8.5 fl. (7.2-11.1); NUCLEATED RBCS 1 /100WBC; PLATELET COUNT* 80 thou/uL (150-400); POLYS 74.6 %; RBC 2.73 mil/uL (4.50-6.00); RDW-CV 17.6 % (10.5-14.5); WBC 3.8 thou/uL (4.0-11.0)
[2018-04-17 06:17] LABS: CALCIUM 8.5 mg/dL (8.5-10.1); CREATININE 1.5 mg/dL (0.6-1.3); POTASSIUM 4.9 mmol/L (3.5-5.1); TROPONIN-I LEVEL 0.1 ng/mL (<0.06)
[2018-04-17 06:23] LABS: HEMOGLOBIN 6.5 gm/dL (14.0-18.0)
--- NOTE | 2018-04-17 06:50 | NUR ---
Pt reports pain to L knee d/t abrasion from fall prior to admission. Non-adhesive bandage placed over abrasion, which appears to be scabbed over. Pt received 1 unit PRBCs last pm for Hgb 6.4. This am pt's Hgb 6.5. Paged Dr. Hagen, order received to transfuse another unit PRBCs (order received at 0641). Pt reports that he takes gabapentin at home for neuropathy pain, and inquired if he would be able to take that today. Pt NPO. Pt went for CT last pm of chest and abdomen. VSS. Will continue to monitor.
[2018-04-17 11:55] LABS: HEMOGLOBIN 8.1 gm/dL (14.0-18.0)
[2018-04-17 12:51] LABS: APTT 26.2 Seconds (25.0-31.3); INR 1.2; PROTIME 12.5 Seconds (9.20-11.50)
--- NOTE | 2018-04-17 19:05 | NUR ---
ASSESSMENT CHARTED. AFEBRILE. ADEQUATE URINE OUTPUT. HEMATOLOGY CONSULTED AND ID CONSULTED. RECEIVED 1 UNIT PRBCS TODAY. HGB NOW 8.1. EGD TODAY. PHYSICIAN SPOKE TO ABOUT FINDINGS. PT TOLERATED WELL. VITALS STABLE.
[2018-04-18] VITALS (12 sets, daily range): BP systolic 137–179; BP diastolic 55–81
[2018-04-18 06:21] LABS: ABSOLUTE LYMPHOCYTES 0.5 thou/uL (0.8-5.3); ABSOLUTE MONOCYTES 0.3 thou/uL (0.0-1.2); ABSOLUTE NEUTROPHILS 2.5 thou/uL (1.6-8.1); BASOPHILS 0.2 %; EOSINOPHILS 1.2 %; HEMATOCRIT 26.2 % (42.0-52.0); HEMOGLOBIN 8.3 gm/dL (14.0-18.0); LYMPHOCYTES 15.1 %; MCH 24.3 pg (26.0-34.0); MCHC 31.6 g/dL (28.0-37.0); MCV 77.1 fL (80.0-100.0); MONOCYTES 7.6 %; MPV 8.3 fl. (7.2-11.1); NUCLEATED RBCS 0 /100WBC; PLATELET COUNT* 62 thou/uL (150-400); POLYS 75.9 %; RBC 3.39 mil/uL (4.50-6.00); WBC 3.3 thou/uL (4.0-11.0)
[2018-04-18 06:33] LABS: ALBUMIN 2.7 g/dL (3.4-5.0); CALCIUM 8.1 mg/dL (8.5-10.1); CREATININE 1.5 mg/dL (0.6-1.3); POTASSIUM 4.1 mmol/L (3.5-5.1)
--- NOTE | 2018-04-18 08:59 | NUR ---
DR. SOTO OK WITHOUT GI OK TO TRANSFER BACK TO TELE FLOOR. PAGE TO GI THIS AM WITHOUT CALL BACK. PATIENT IS BEING TRANSFERED TO ROOM 201.
--- NOTE | 2018-04-18 09:10 | NUR ---
GI AND HOSPITALIST OK WITH PATIENT TRANSFER. PATIENT TRANSFERED TO ROOM 201
[2018-04-18 10:07] LABS: IgA 200 mg/dL (61-437); IgG 721 mg/dL (700-1600); IgM 10 mg/dL (15-143)
[2018-04-18 10:07] LABS: HEPATITIS B SURFACE AG Negative (Negative)
--- NOTE | 2018-04-18 12:24 | CON ---
[address] [address] CONSULTATION Name: LEONIDAS MERCADO Room: [address] IN M.R.#: [id number] Admission: 04/16/18 Attend Phys: Maurizio Hagen MD Discharge: Date of : 43 Report #: [id number] THIS REPORT FOR: //name// CC: Maurizio Martineztx DATE OF SERVICE: 04/17/2018 ATTENDING PHYSICIAN: Maurizio Hagen MD REASON FOR EVALUATION: Pneumonitis ____ stability. HISTORY OF PRESENT ILLNESS: The patient has extensive medical history. Chart reviewed, patient examined. 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 He was actually hospitalized earlier this month, was diagnosed with pneumonitis. He did improve over the course of the hospitalization and was discharged. On the day of admission, he awoke, was unable to eat part of which we attributed to esophageal issues, had a poor appetite. He did have a cough and had recently fallen abrasing his knee. 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 He was evaluated and persistent infiltrates noted on chest x-ray and was felt to be dehydrated as well. Additional evaluation noted elevated creatinine from baseline 2.0, hemoglobin was 6.4, required supplemental oxygen per nasal cannula. Due to concern about possible infectious etiology, blood and urine cultures were collected. Urinalysis did show greater than 25 white cells, 10-30 bacteria. He was started empirically on therapy with ceftriaxone. He was mildly encephalopathic. ALLERGIES: SULFA. CURRENT MEDICATIONS: Include gabapentin, pantoprazole, ceftriaxone. PAST MEDICAL HISTORY: As described above, diabetes mellitus, peripheral vascular disease, hypertension, hyperlipidemia, right below-knee amputation, COPD, chronic renal insufficiency, chronic anemia. SOCIAL HISTORY: Nonsmoker, no ethanol. REVIEW OF SYSTEMS: Denies significant abdominal-related pain, has not had weight loss as of late, although during previous hospitalization lost 10 pounds. Otherwise unremarkable 10-point review of systems. PHYSICAL EXAMINATION: GENERAL: Appears chronically ill. He is pleasant, cooperative, mowx-tw-nyahnvdk distress. [place] [address] CONSULTATION Name: JESSLEONIDAS Santiago Room: [address]#: [id number] Admission: 04/16/18 Attend Phys: Maurizio Hagen MD Discharge: Date of : 43 Report #: [id number] VITAL SIGNS: Temperature 98.1, pulse 89, respirations 18, blood pressure 131/72. SKIN: Warm. Had several contused areas. He has got abrasion on the left knee superficially. There is a moderate degree of inflammation. HEENT: Normocephalic. Extraocular muscles intact. NECK: Supple. LUNGS: Left-sided coarse breath sounds, right seems fairly clear. HEART: Regular, borderline tachycardic. I do not appreciate murmur. ABDOMEN: Mildly distended, soft. There is no tenderness, no peritoneal signs. GENITOURINARY AND RECTAL: Deferred. LABORATORY DATA: Blood cultures sterile thus far, collected from the . CT chest showed ill-defined nodular, patchy left pulmonary opacities. CT abdomen and pelvis showed colonic inflammatory process, question of diverticulitis, question of a diffuse colitis as well as ascites, splenomegaly. There is question of cirrhosis image ruiz, left renal calculus. CBC: White count of 3.8, H and H 6.5 and 20.7, platelets of 80. Electrolytes: Sodium 142, potassium 4.9, chloride 107, bicarb is 26, BUN and creatinine 18 and 1.5. Estimated GFR 46. Lactic acid initially 2.4, repeat was 1.6. Chest x-ray, some patchy infiltrates. Urinalysis greater than 25 white cells. Liver function was unremarkable. Albumin 2.9, total protein 6.0. PT of 11.8, INR of 1.2. ASSESSMENT AND PLAN: Acute pneumonitis, whether this is incompletely treated or new aspiration is not entirely clear. I think it is reasonable to continue empiric therapy. Secondarily, he has what appears to be marked pyuria, certainly at risk for genitourinary tract infection, has poor p.o. intake with anorexia. Risk for bladder urinary stasis. We will adjust antimicrobial therapy. Await culture results. Would benefit from transfusion I believe. Whether he has got some primary colitis is not clear. There was no significant diagnosis of diarrhea. He does have GI on board if they want to repeat the EGD or colonoscopy at this point. He remains fairly tenuous. <ELECTRONICALLY SIGNED> By: Wai Jackson MD 04/18/18 1224 1013 [id number] Jackson MD /nt
--- NOTE | 2018-04-18 15:22 | NUR ---
VSS, ASSUMED CARE OF PT IN THE AM, ASSESSMENT PERFORMED AND CHARTED, FALL PRECAUTIONS IN PLACE AND CALL LIGHT IN REACH PT IS ON RA NOW, IS TRACING SR/ST ON THE MONITOR, UP WITH ONE TO BSC, PT DENIES ANY PAIN HAS HERNANDEZ IN PLACE AND IS DRAINING, PT HAS RIGHT BKA, PT HAS FAMILY AT BEDSIDE, WILL FOLLOW WITH PLAN OF CARE.
--- NOTE | 2018-04-18 15:44 | CON ---
[address] [address] CONSULTATION Name: LEONIDAS MERCADO Room: [address] IN M.R.#: [id number] Admission: 04/16/18 Attend Phys: Maurizio Hagen MD Discharge: Date of : 43 Report #: [id number] THIS REPORT FOR: //name// CC: Maurizio Hoover DATE OF SERVICE: 04/17/2018 HEMATOLOGY CONSULTATION REASON FOR CONSULTATION: Pancytopenia. HISTORY OF PRESENT ILLNESS: A 72-year-old male who was admitted because of weakness, fall and hyperkalemia. He was admitted recently because of pneumonia and respiratory failure. The patient had a fall and denies loss of consciousness or head injury. He has been having also minimal productive cough. The patient was found to be in renal failure. Creatinine was 2.0. The patient received boluses of IV fluids; however, his WBC upon admission was 10.8, his hemoglobin was 6.4 and platelets 122,000. The patient's imaging revealed that he had changes consistent with colitis, also splenomegaly with possible cirrhosis. The patient denies any significant alcohol abuse. Last drink was around 25 years ago. The patient denies any known history of hepatitis C, never been told that he had a fatty liver; however, he has been a diabetic. REVIEW OF SYSTEMS: All systems reviewed. It was negative, except the above. PAST MEDICAL HISTORY: Significant for COPD, neuropathy, diabetes mellitus, dyslipidemia and peripheral vascular disease. PAST SURGICAL HISTORY: Vasectomy and right below-knee amputation. FAMILY HISTORY: Noncontributory. SOCIAL HISTORY: The patient is . He does not smoke. He drank beer occasionally, but the last drink was around 25 years ago. MEDICATIONS: Per admission list. ALLERGIES: SULFA. PHYSICAL EXAMINATION: VITAL SIGNS: Today, temperature 36.7, pulse 89, respirations 18, blood pressure is 131/72 and pulse is 99% on 2 liters. GENERAL: The patient was sitting in the bed. He was not in acute distress. LUNGS: Decreased breathing sounds with fine rales. HEART: Regular rate and rhythm. S1, S2 [place] [address] CONSULTATION Name: LEONIDAS MERCADO Room: [address] IN [facility]#: [id number] Admission: 04/16/18 Attend Phys: Maurizio Hagen MD Discharge: Date of : 43 Report #: [id number] ABDOMEN: Soft, nontender and nondistended. No hepatosplenomegaly. ASSESSMENT AND PLAN: 1. A 72-year-old male who presented today because of pancytopenia. He had significant anemia with microcytosis. I do suspect the patient might have underlying GI bleed; however, his ferritin has been reported normal, but it is on the low normal side. We will obtain occult blood. Agree with GI consultation. 2. In terms of his pancytopenia, his white blood cells have dropped, which is most likely due to dilutional effect. However, his folate level came back on the low side. We will start the patient on replacement. In terms of his thrombocytopenia, most likely this is due to his cirrhosis. We will obtain acute hepatitis panel. The patient does not seem to have very significant heavy alcohol abuse. I would like to wait for GI recommendation whether further workup is needed. At this point, we will continue supportive transfusion. No active bleeding has been reported. <ELECTRONICALLY SIGNED> By: Lukasz Frankel MD 04/18/18 1544 0910 [id number] Frankel MD /nt
--- NOTE | 2018-04-18 17:49 | NUR ---
VSS, I LOOKED OVER ICU ASSESSMENT FINDINGS AND CHARTING AND I AGREE WITH THOSE ASSESSMENTS.
[2018-04-19] VITALS: BP 155/84
--- NOTE | 2018-04-19 03:09 | NUR ---
ASSUMED PT CARE @ 193. A+O X 4. NO PAIN REPORTED OR OBSERVED. COUGH NOTED. APPLIED 2L O2 DURING THE NIGHT WHEN PT DESATED TO 90% ON ROOM AIR. NOTIFIED PT WE NEEDED A STOOL SAMPLE AND NPO @ MIDNIGHT. PT HAS BEEN RESTING THROUGHOUT SHIFT. CALL LIGHT IN REACH. HOURLY ROUNDING FOR SAFETY.
[2018-04-19 04:00] VITALS: BP 146/69
[2018-04-19 04:53] LABS: ABSOLUTE LYMPHOCYTES 0.6 thou/uL (0.8-5.3); ABSOLUTE MONOCYTES 0.3 thou/uL (0.0-1.2); ABSOLUTE NEUTROPHILS 2.5 thou/uL (1.6-8.1); BASOPHILS 0.6 %; EOSINOPHILS 1.1 %; HEMATOCRIT 23.3 % (42.0-52.0); HEMOGLOBIN 7.3 gm/dL (14.0-18.0); LYMPHOCYTES 18.6 %; MCH 24.4 pg (26.0-34.0); MCHC 31.4 g/dL (28.0-37.0); MCV 77.7 fL (80.0-100.0); MONOCYTES 7.5 %; MPV 8.6 fl. (7.2-11.1); NUCLEATED RBCS 0 /100WBC; PLATELET COUNT* 60 thou/uL (150-400); POLYS 72.2 %; RDW-CV 18.2 % (10.5-14.5); WBC 3.4 thou/uL (4.0-11.0)
[2018-04-19 05:06] LABS: CALCIUM 7.7 mg/dL (8.5-10.1); CREATININE 1.3 mg/dL (0.6-1.3); POTASSIUM 3.9 mmol/L (3.5-5.1)
[2018-04-19 05:20] LABS: PREALBUMIN 11.9 mg/dL (18.0-35.7)
[2018-04-19 08:25] VITALS: BP 136/80
--- NOTE | 2018-04-19 09:40 | NUR ---
ASSUMED CARE OF PT THIS AM AROUND 0715- DATA REVIEWER IN PLACE ORDERED, TRACING A-FIB- UPON ASSESSMENT PT NOTED TO BE RESTING IN BED, WATCHING TV- PT A&O X4- CONTINENT OF BOWEL, HERNANDEZ IN PLACE D/D CLEAR АННА URINE-ASSIST X1 WITH TRANSFERS; RIGHT BKA NOTED WITH PROSETHEIS- EXPIRATORY WHEEZING NOTED, OCCASSIONLA COUGH REPORTED- VSS, O2 SAT 93% ON RA- ABD SOFT/OBESE/NON-TENDER, BS X4 QUADS- BM REPORTED THIS AM- IV NOTED TO RIGHT AND LEFT FA INTACT AND SL- LEFT TRIPLE JUGUAL NOTED, IV ABT INFUSSING THIS AM PRESCRIBED- IVF D/C'D THIS AM- PT DOWN FOR BARRIUM SWALLOW STUDY THIS AM PRESCRIBED, RESULTS PENDING AT THIS TIME- GOOD PO INTAKE NOTED THIS AM WITH BREAKFAST-PT DENIES ANY C/O PAIN/DISCOMFORT AT THIS TIME- CALL LIGHT AND PERSONAL BELONGINGS WITH IN REACH- HOURLY ROUNDS IN PLACE R/T SAFETY/NEEDS- ALL NEEDS MET AT THIS TIME- WCTM
--- NOTE | 2018-04-19 10:56 | CON ---
[address] [address] CONSULTATION Name: LEONIDAS MERCADO Room: [address] IN .R.#: [id number] Admission: 04/16/18 Attend Phys: Maurizio Hagen MD Discharge: Date of : 43 Report #: [id number] THIS REPORT FOR: //name// CC: Maurizio Hoover DATE OF SERVICE: 04/17/2018 NEPHROLOGY CONSULTATION REQUESTING PHYSICIAN: Dr. Hagen. REASON FOR CONSULTATION: Acute kidney injury. HISTORY OF PRESENT ILLNESS: A 72-year-old gentleman, with no preexisting known history of kidney disease, no outpatient proctologist, who was admitted with anemia, weakness and severe hyperkalemia. He does not take any NSAIDs. Denies any nausea, vomiting or diarrhea. He was recently hospitalized with pneumonia. He had a potassium of 6.7 on admission and a creatinine of 2 on admission. He had low blood pressures and was anemic and transfused 2 units of packed red blood cells. He is feeling much better today. He has no complaints. REVIEW OF SYSTEMS: Constitutional, psych, heme, eyes, ENT, respiratory, cardiac, GI, , endocrine, all negative except as documented above. PAST MEDICAL HISTORY: Diabetes, hypertension, peripheral vascular disease, dyslipidemia, history of right BKA, COPD, chronic anemia, thrombocytopenia. SOCIAL HISTORY: No tobacco. FAMILY HISTORY: Not pertinent in this 72-year-old gentleman. CURRENT MEDICATIONS: Reviewed. PHYSICAL EXAMINATION: VITAL SIGNS: Blood pressure is 131/72, pulse 89, respirations 18, temperature 36.7. GENERAL: In no acute distress. EYES: Extraocular movements intact. EARS: Externally normal. CARDIOVASCULAR: Regular rate. LUNGS: No crackles. ABDOMEN: Soft. MUSCULOSKELETAL: Nontender. He has right BKA. PSYCHIATRIC: Awake, [place] [address] CONSULTATION Name: LEONIDAS MERCADO Room: [address] IN [facility]#: [id number] Admission: 04/16/18 Attend Phys: Maurizio Hagen MD Discharge: Date of : 43 Report #: [id number] LABORATORY DATA: White cell count 3.8, hemoglobin 6.5, platelets 80. Sodium 142, potassium 4.9, chloride 107, bicarbonate 26, BUN 18, creatinine 1.5, glucose 170, calcium 8.5. ASSESSMENT: 1. Acute kidney injury with a creatinine of 2 on admission in the setting of severe anemia, hypotension, lisinopril. CT scan kidneys, no acute finding. UA was noted. 2. Anemia, status post 2 units packed red blood cells. 3. Pancytopenia with an enlarged spleen and possible cirrhosis noted on CT. 4. Possible cirrhosis. 5. Hyperkalemia with a potassium of 6.7 on admission. 6. Possible diverticulitis/colitis mentioned on CT. Internal medicine managing this. 7. Left renal calculus without obstruction. 8. Chronic kidney disease, stage 3. Baseline creatinine probably 1.5-1.6. 9. Right epolj-tun-mrqp amputation. 10. Insulin-dependent diabetes. 11. Chronic obstructive pulmonary disease. 12. Hypotension on admission. PLAN: 1. Blood pressure is improved. Potassium has improved with medical management. 2. Urine culture is pending. 3. Good urine output. 4. Gentamicin is on his MAR, not sure of the indication for this or if it was entered in error. I discussed with ICU nurse and she will check to confirm whether this medication is needed. 5. Discontinue bicarbonate. Change IV fluids to normal saline. 6. Hematology and infectious disease have been consulted. 7. Discussed the case with Dr. Hagen. We will follow along with you. Thank you for requesting my opinion in the care and management of this patient. <ELECTRONICALLY SIGNED> By: Mary Kay Gonzales MD 04/19/18 1056 1140 [id number] Gonzales MD /nt
--- NOTE | 2018-04-19 11:20 | NUR ---
Pt is A&O. Resides at home with his . Known to this CM, Pt was just in the hospital earlier this month. Pt is normally independent, wears a prothesis and has a walker and wc that he can use. Pt is current with [facility] and wants to resume at [facility]. Following.
[2018-04-19 16:00] VITALS: BP 127/74
--- NOTE | 2018-04-19 16:35 | NUR ---
PT CURRENTLY RESTING IN BED SIDE CHAIR- TELEPHONE ORDER CLERK ROOM SERVICE IN PLACE ORDERED, TRACING A-FIB- IV TO RIGHT AND LEFT AC INTACT AND SL- LEFT JUGULAR PICC NOTED INTACT- UA CULTURE WTH SENSATIVITIES RESULTED, IV ROCEPHIN D/C'D WITH IV AMPICILLIN STARTED PER IN THIS SHIFT- PT WORKING WITH THERAPIES ORDERED, TOLERATING WELL- HERNANDEZ D/C'D THIS AM AT 0950, PT REPORTS TO BE URINATING GOOD WITH NO PROBLEMS REPORTED- STOOL COLLECTED AND SENT FOR TESTING, OCCULT BLOOD REPORTED NEGATIVE- GOOD PO INTAKE NOTED THIS SHIFT MEALS, BS MONITORED WTH SSI PRESCIBED THIS SHIFT- PT DENIES ANY C/O PAIN/DISCOMFORT AT THIS TIME- CALL LIGHT AND PERSONAL BELONGINGS WITH IN REACH- ALL NEEDS MET AT THIS TIME-WCTM
[2018-04-19 20:00] VITALS: BP 124/71
[2018-04-20] VITALS: BP 143/67
--- NOTE | 2018-04-20 03:51 | NUR ---
ASSUMED PT CARE @ 1930. A+O X4. TRACING AFIB ON MONITOR. SKIN TEAR AND ABRASION NOTED ON LEFT KNEE. 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 DOCUMENTED WITH PICTURES AND PLACED IN THE CHART. PT REPORTS THE WOUND "HAPPENED WHEN I FELL @ HOME BUT I THINK THE SKIN TORE YESTERDAY." PT HAS BEEN RESTING THROUGH THE NIGHT WITHOUT INCIDENT. CALL LIGHT IN REACH. HOURLY ROUNDING FOR SAFETY.
[2018-04-20 04:00] VITALS: BP 130/55
[2018-04-20 05:20] LABS: ABSOLUTE LYMPHOCYTES 0.6 thou/uL (0.8-5.3); ABSOLUTE MONOCYTES 0.2 thou/uL (0.0-1.2); ABSOLUTE NEUTROPHILS 1.7 thou/uL (1.6-8.1); BASOPHILS 0.8 %; EOSINOPHILS 1.6 %; HEMOGLOBIN 7.2 gm/dL (14.0-18.0); LYMPHOCYTES 23.4 %; MCH 24.5 pg (26.0-34.0); MCHC 31.5 g/dL (28.0-37.0); MCV 77.6 fL (80.0-100.0); MPV 8.4 fl. (7.2-11.1); NUCLEATED RBCS 0 /100WBC; PLATELET COUNT* 56 thou/uL (150-400); POLYS 65.2 %; RBC 2.96 mil/uL (4.50-6.00); RDW-CV 18.3 % (10.5-14.5); WBC 2.6 thou/uL (4.0-11.0)
[2018-04-20 05:36] LABS: ALBUMIN 2.4 g/dL (3.4-5.0); CALCIUM 7.4 mg/dL (8.5-10.1); CREATININE 1.4 mg/dL (0.6-1.3); POTASSIUM 3.5 mmol/L (3.5-5.1); TOTAL BILIRUBIN 0.7 mg/dL (<0.1-1.0); TOTAL PROTEIN 5.7 g/dL (6.4-8.2)
[2018-04-20 08:00] VITALS: BP 144/67
[2018-04-20 12:00] VITALS: BP 133/74
--- NOTE | 2018-04-20 12:05 | NUR ---
Pt discharging home, resumption orders faxed to [facility].
[2018-04-20 12:06] VITALS: BP 144/67
--- NOTE | 2018-04-20 12:57 | NUR ---
ASSUMED CARE OF PATIENT THIS AM AT 0730. PATIENT IS ALERT AND ORIENTED X 4. HE DENIES PAIN AND DISCOMFORT THIS AM. PATIEN HAS BEEN UP WITH PT IN THE HALLS. TELE SHOWS SR WITH PACS. PATIENT HAS BEEN VOIDING PER URINAL. DR IN TO ROUND AND DISCHARGE PLANNED FOR TODAY. PATIENT IS REQUESTING HOME HEALTH NURSE. NO S/S OF FURTHER BLEEDING TODAY. PATIENT IS TAKING HIS DIET WELL.
[2018-04-20] MEDS ORDERED: AUGMENTIN 875-1 EACH PO (13:41)
[2018-04-20] MEDS ORDERED: IRON325 M1 PO (13:44)
[2018-04-20 13:46] VITALS: BP 144/67
[2018-04-20 19:11] LABS: ANA INTERPRETATION Negative (())
--- NOTE | 2018-04-21 09:57 | CON ---
[address] [address] CONSULTATION Name: LEONIDAS MERCADO Room: [address] IN M.R.#: [id number] Admission: 04/16/18 Attend Phys: Maurizio Hagen MD Discharge: 04/20/18 Date of : 43 Report #: [id number] THIS REPORT FOR: //name// CC: Maurizio Hoover DO DICTATED BY: Lucrecia Garcia [facility] DATE OF SERVICE: 04/17/2018 Please note, at the time of this dictation, the patient was seen and physically examined by myself. REASON FOR CONSULTATION: Dysphagia and anemia. HISTORY OF PRESENT ILLNESS: This is a pleasant 72-year-old male who is well known to our practice who was last seen back in 2015. The patient, at that time, underwent EGD, colonoscopy. EGD was due to dysphagia and he was noted to have achalasia. He was dilated and obtained Botox at that time along noting gastritis, which was negative for H. pylori. He had a colonoscopy that showed tubular adenoma polyps, serrated adenoma and diverticulosis throughout his entire colon. The patient was scheduled to have an office visit today at noon for evaluation for an EGD, but due to his severe weakness yesterday and he had not eaten anything for 48 hours, he was brought to the Emergency Room for that reason. Last hemoglobin that we have recorded was 15.6 and that was back in 2014. The patient states for the last 2 days, he has not been able to eat or drink anything, it goes down and comes right back up. He states prior to the last 48 hours, he was having episodes about once or twice a week that he was noting this and then, all of a sudden, this occurred prompting him to come in to the ER. The patient also has a history of noted fatty liver disease noted on ultrasound back in 2008. The patient states his bowels move daily, soft and formed, although they have not moved in several days since he has not eaten either. He denies any bright red blood or coffee ground emesis or any bright red blood or melena in his stool. He did receive some Kayexalate for high potassium yesterday upon the ER. He had several bowel movements at that time and they were noted to be normal with no evidence of any blood. ALLERGIES: SULFA. MEDICATIONS FROM HOME: Pulmicort, aspirin, albuterol solution, metformin, gabapentin, pantoprazole, tramadol, glipizide, atorvastatin and lisinopril. PAST MEDICAL HISTORY: Includes diabetes, hypertension, hyperlipidemia, COPD, CKD 3, chronic anemia along [place] [address] CONSULTATION Name: LEONIDAS MERCADO Room: [address] IN M.R.#: [id number] Admission: 04/16/18 Attend Phys: Maurizio Hagen MD Discharge: 04/20/18 Date of : 43 Report #: [id number] PAST SURGICAL HISTORY: Right BKA, uvulectomy, vasectomy. FAMILY HISTORY: Negative for any GI or female cancers. SOCIAL HISTORY: Denies any alcohol, tobacco or illegal drug use. He lives with his currently. REVIEW OF SYSTEMS: Twelve-point review of systems is essentially negative except what is mentioned in the HPI. PHYSICAL EXAMINATION: VITAL SIGNS: Temperature 36.7, pulse 89, respirations 18, blood pressure 131/72. HEART: Regular rate and rhythm. LUNGS: Diminished, but clear. ABDOMEN: Soft, positive bowel sounds in all 4 quadrants with no masses or tenderness noted. LABORATORY DATA: Hemoglobin on admission was 6.4. He received a unit of blood, he was again 6.5 this a.m. Has received a second unit of blood. White count is 3.8, platelets are 80,000, MCV is 75.6. PT is 11.8, INR is 1.2. Sodium 142, potassium is now 4.9, BUN is 18, creatinine is 1.5, GFR is 46, iron is 35, TIBC 389. Ferritin 8. B12 is 373. CT of the abdomen and pelvis showed colonic inflammatory process, possibly diverticulitis involving the cecum, ascending, distal and sigmoid colon, noted some abdominal and pelvic ascites, splenomegaly and cirrhotic liver noted and the left renal calculi. IMPRESSION: 1. Dysphagia with history of achalasia and Botox and dilatation. 2. Anemia. 3. Abnormal CT. 4. Thrombocytopenia. 5. Cirrhosis with history of fatty liver disease. 6. Recent hospitalization for pneumonia. PLAN: 1. EGD today with Dr. Vazquez. 2. AFP. 3. Ultrasound with Dopplers. 4. Hematology on board for his anemia at the present time. Thank you for allowing us to participate in this patient's care. Please do not hesitate to call with any questions in regard to this consult. ADDENDUM: [address] [address] CONSULTATION Name: LEONIDAS MERCADO Room: [address] IN [facility]#: [id number] Admission: 04/16/18 Attend Phys: Maurizio Hagen MD Discharge: 04/20/18 Date of : 43 Report #: [id number] REFERRING PHYSICIAN: Maurizio Hagen MD. I have seen and examined the patient and agree with plans that have been outlined by our nurse practitioner, Lucrecia Garcia. The patient is a pleasant 72-year-old white male who has been treated over the last several years with Botox injection for presumed achalasia. He initially was seen by Dr. Villa back in 2004 or 2005 and started having Botox injections. His last one was done by me back. He then was followed by us in 2011 at which time he had Botox injection and was in the hospital in 2013, when my partner, Dr. Solano performed a Botox injection. He has done well until recently when he started having problem with progressive dysphagia. He has not had any complaints of any heartburn or indigestion, but he has not been able to eat much of anything. His weight has also changed because of inability to clear his secretions. He has had sleep sitting upright. He denies any complaints of abdominal pain, any problem with his bowels or bowel frequency. Denied black stools, tarry stools or any other issues. Upon admission, he is found to be markedly anemic, which appears to be related to iron deficiency anemia of uncertain etiology. In addition, he has had a CT scan of the abdomen and pelvis, which suggest that he has cirrhosis with mild perihepatic ascites and splenomegaly compatible with portal hypertension. He does not have any risk factors for liver disease and has never had any problem like this in the past. His risk factors would include diabetes, obesity and hyperlipidemia. PHYSICAL EXAMINATION: VITAL SIGNS: Stable. CARDIOPULMONARY: Revealed a regular rate and rhythm. LUNGS: Clear. ABDOMEN: Soft. It was protuberant. No rebound or guarding noted. DISCUSSION: At the present time, the patient appears to be not only iron deficient, but has also had problem with dysphagia. The concern I have is whether or not he has portal hypertension within his upper GI tract. This made it more difficult for us to take care of his achalasia. In any event, because he is anemic and he has difficulty with swallowing, we will proceed with upper endoscopy, possible Botox injection. I will make further recommendations thereafter. In addition, we will do serologic workup to evaluate for any occult source for his presumed cirrhosis at this time [place] [address] CONSULTATION Name: LEONIDAS MERCADO Room: [address]#: [id number] Admission: 04/16/18 Attend Phys: Maurizio Hagen MD Discharge: 04/20/18 Date of : 43 Report #: [id number] thereafter. I have discussed the plans with the patient as well as and they are agreeable to the same. <ELECTRONICALLY SIGNED> By: Xavi Vazquez DO 04/21/18 0957 1114 DO tabitha Rivera
[2018-04-23 17:09] LABS: ADENOVIRUS Negative (Negative); INFLUENZA A Negative (Negative); INFLUENZA B Negative (Negative); METAPNEUMOVIRUS Negative (Negative); PARAINFLUENZA 1 Negative (Negative); PARAINFLUENZA 2 Negative (Negative); PARAINFLUENZA 3 Negative (Negative); RHINOVIRUS Negative (Negative); RSV A Negative (Negative); RSV B Negative (Negative)
== END 2018-04-20 15:20 | disposition home health service (06) | DRG 682 ==
LOC: M.ERS 13:30 → M.TBA-ER 15:04 → M.ICU 15:04 → M.2W 15:04 → M.ICU 16:37 → M.2W 04-18 09:00
PROVIDERS: Emergency Medicine Emergency Medical Services; Internal Medicine; Internal Medicine Gastroenterology; Nurse Practitioner Adult Health; Specialist; ADMIT Internal Medicine
PROC: 3E0G8GC Introduction of Other Therapeutic Substance into Upper GI, Via Natural or Artificial Opening Endoscopic (ICD-10-PCS; principal; 2018-04-17)
DX: N17.9 Acute kidney failure, unspecified (principal); J69.0 Pneumonitis due to inhalation of food and vomit; R65.10 Systemic inflammatory response syndrome (SIRS) of non-infectious origin without acute organ dysfunction; N39.0 Urinary tract infection, site not specified; D61.818 Other pancytopenia; I85.10 Secondary esophageal varices without bleeding; K76.6 Portal hypertension; I95.9 Hypotension, unspecified; E11.22 Type 2 diabetes mellitus with diabetic chronic kidney disease; E11.51 Type 2 diabetes mellitus with diabetic peripheral angiopathy without gangrene; N18.3 Chronic kidney disease, stage 3 (moderate); K52.9 Noninfective gastroenteritis and colitis, unspecified; K31.89 Other diseases of stomach and duodenum; K22.0 Achalasia of cardia; I12.9 Hypertensive chronic kidney disease with stage 1 through stage 4 chronic kidney disease, or unspecified chronic kidney disease; E11.40 Type 2 diabetes mellitus with diabetic neuropathy, unspecified; D50.9 Iron deficiency anemia, unspecified; N20.0 Calculus of kidney; E78.5 Hyperlipidemia, unspecified; K74.60 Unspecified cirrhosis of liver; E87.5 Hyperkalemia; J44.9 Chronic obstructive pulmonary disease, unspecified; Z87.891 Personal history of nicotine dependence; Z89.511 Acquired absence of right leg below knee; Z79.4 Long term (current) use of insulin; Z79.82 Long term (current) use of aspirin; Z79.899 Other long term (current) drug therapy; Z88.2 Allergy status to sulfonamides

== ENCOUNTER 2018-04-30 17:57 | Emergency (ER) | payer OTHER, MEDICARE ==
[~2018-04-30] VITALS: Ht 177.8 cm; Wt 108.9 kg
[~2018-04-30 17:57] MED LIST changes: +AUGMENTIN 875-1 EACH PO; +IRON325 M1 PO
[2018-04-30] MEDS ORDERED: MAXZIDE-25 MG1 EACH PO (18:16)
[2018-04-30 18:53] LABS: HEMATOCRIT 26.7 % (42.0-52.0); HEMOGLOBIN 8.4 gm/dL (14.0-18.0); MCH 25.1 pg (26.0-34.0); MCHC 31.6 g/dL (28.0-37.0); MCV 79.6 fL (80.0-100.0); MPV 9.2 fl. (7.2-11.1); NUCLEATED RBCS 0 /100WBC; PLATELET COUNT* 228 thou/uL (150-400); RBC 3.36 mil/uL (4.50-6.00); RDW-CV 20.8 % (10.5-14.5); WBC 3.3 thou/uL (4.0-11.0)
[2018-04-30 19:05] LABS: APTT 25.9 Seconds (25.0-31.3); INR 1.2; PROTIME 11.8 Seconds (9.20-11.50)
[2018-04-30 19:07] LABS: ALBUMIN 2.9 g/dL (3.4-5.0); CALCIUM 8.2 mg/dL (8.5-10.1); CREATININE 1.6 mg/dL (0.6-1.3); POTASSIUM 5.4 mmol/L (3.5-5.1); TOTAL BILIRUBIN 0.5 mg/dL (<0.1-1.0); TOTAL PROTEIN 6.8 g/dL (6.4-8.2)
[2018-04-30 19:20] LABS: ABSOLUTE LYMPHOCYTES 0.8 thou/uL (0.8-5.3); ABSOLUTE MONOCYTES 0.1 thou/uL (0.0-1.2); ABSOLUTE NEUTROPHILS 2.3 thou/uL (1.6-8.1); ATYPICAL LYMPHS 2 %
[2018-04-30 19:21] LABS: ANISOCYTOSIS 2+; HYPOCHROMASIA Occasional; OVALOCYTES 1+; POLYCHROMASIA Occasional
[2018-04-30 19:23] LABS: CLUMPED PLTS OCCASIONAL; PLATELET ESTIMATE ADEQUATE
[2018-04-30 19:24] LABS: LARGE PLATELETS RARE; MICROCYTES 1+
[2018-04-30 20:06] VITALS: BP 152/51
--- NOTE | 2018-05-01 11:36 | EKG ---
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 System Administrator: : 1945 Requested By: Franco Ward Order Number: [id number] MD: Carson Bacon Measurements Intervals [place] Rate: 90 P: 38 DC: 135 QRS: 39 QRSD: 87 T: 56 QT: 364 QTc: 446 Interpretive Statements Sinus rhythm Abnormal R-wave progression, early transition Baseline wander in lead(s) V6 Compared to ECG 04/16/2018 13:34:32 Atrial premature complex(es) no longer present Electronically Signed On 05-01-2018 11:35:42 CDT by Carson Bacon [email or web address] <ELECTRONICALLY SIGNED> By: Carson Bacon MD, FAC 05/01/18 1135 1840 1840 Carson Bacon MD, [facility] /EPI
== END 2018-04-30 20:07 | disposition home or self-care (01) ==
LOC: M.ERS 17:57
PROVIDERS: Nurse Practitioner Psychiatric/Mental Health
DX: E87.5 Hyperkalemia (principal); D64.9 Anemia, unspecified; E78.5 Hyperlipidemia, unspecified; Z96.651 Presence of right artificial knee joint; J44.9 Chronic obstructive pulmonary disease, unspecified; I12.9 Hypertensive chronic kidney disease with stage 1 through stage 4 chronic kidney disease, or unspecified chronic kidney disease; E11.22 Type 2 diabetes mellitus with diabetic chronic kidney disease; N18.3 Chronic kidney disease, stage 3 (moderate); Z88.2 Allergy status to sulfonamides

== ENCOUNTER 2018-09-30 20:04 | Inpatient (IN) | payer OTHER, MEDICARE ==
[~2018-09-30] VITALS: Ht 180.3 cm; Wt 108.4 kg
[2018-09-30 20:14] VITALS: BP 159/60
[2018-09-30] MEDS ORDERED: NOVOLOG100 UNIT/1 SUBQ (20:19)
[2018-09-30] MEDS ORDERED: LISINOPRIL40 MG PO (20:22)
[2018-09-30 20:45] LABS: ABSOLUTE LYMPHOCYTES 0.6 thou/uL (0.8-5.3); ABSOLUTE MONOCYTES 0.4 thou/uL (0.0-1.2); ABSOLUTE NEUTROPHILS 3.3 thou/uL (1.6-8.1); BASOPHILS 1.1 %; EOSINOPHILS 0.9 %; HEMATOCRIT 32.6 % (42.0-52.0); HEMOGLOBIN 10.8 gm/dL (14.0-18.0); LYMPHOCYTES 13.9 %; MCH 28.8 pg (26.0-34.0); MCHC 33.1 g/dL (28.0-37.0); MCV 87.1 fL (80.0-100.0); MONOCYTES 8.3 %; MPV 9.7 fl. (7.2-11.1); NUCLEATED RBCS 0 /100WBC; PLATELET COUNT* 74 thou/uL (150-400); POLYS 75.8 %; RBC 3.75 mil/uL (4.50-6.00); RDW-CV 15.2 % (10.5-14.5); WBC 4.3 thou/uL (4.0-11.0)
[2018-09-30 20:51] LABS: ANION GAP 11 mmol/L (7-16); BUN 22 mg/dL (7-18); CALCIUM 8.4 mg/dL (8.5-10.1); CHLORIDE 103 mmol/L (98-107); CO2 24 mmol/L (21-32); CREATININE 1.6 mg/dL (0.6-1.3); GLUCOSE 202 mg/dL (70-99); POTASSIUM 5.2 mmol/L (3.5-5.1); SODIUM 138 mmol/L (136-145)
[2018-09-30 20:57] LABS: URINE BILIRUBIN NEGATIVE (Negative); URINE BLOOD TRACE (Negative); URINE CLARITY CLEAR; URINE COLOR YELLOW; URINE GLUCOSE-RANDOM NEGATIVE (Negative); URINE KETONES NEGATIVE (Negative); URINE LEUKOCYTES-REFLEX 1+ (Negative); URINE NITRITE-REFLEX NEGATIVE (Negative); URINE PROTEIN NEGATIVE (Negative); URINE SPECIFIC GRAVITY 1.015 (1.005-1.030)
[2018-09-30 21:01] LABS: ALBUMIN 3.4 g/dL (3.4-5.0); ALKALINE PHOSPHATASE 77 U/L (46-116); SGOT 17 U/L (15-37); SGPT 29 U/L (30-65); TOTAL BILIRUBIN 0.9 mg/dL (<0.1-1.0); TOTAL PROTEIN 7.2 g/dL (6.4-8.2); TROPONIN-I LEVEL <0.06 ng/mL (<0.06)
[2018-09-30 21:17] LABS: MUCUS None Seen strn/LPF (None Seen); SQUAMOUS 4-10 Moderate /LPF (0-3)
[2018-09-30 21:18] LABS: BACTERIA-REFLEX 1-9 Few /HPF (None Seen); CASTS None Seen /LPF (None Seen); CRYSTALS None Seen /LPF (None Seen); URINE RBC 0-2 Rare /HPF (0-2); URINE WBC-REFLEX >25 Many /HPF (0-5)
[2018-09-30 23:17] VITALS: BP 123/58
[2018-09-30 23:37] VITALS: BP 109/72
[2018-10-01 04:12] VITALS: BP 140/74
--- NOTE | 2018-10-01 06:06 | NUR ---
PT ADMITTED TO ROOM 231 DURING THIS SHIFT; VSS, A+OX4, IV FLUIDS RUNNING, ROOM AIR, UP WITH PROSTHESIS AND CANE. HE IS ABLE TO COMMUNICATE HIS NEEDS TO STAFF EFFECTIVELY. HE HAS DENIED THE NEED FOR PAIN MEDICATION UP TO THIS TIME.
[2018-10-01 08:00] VITALS: BP 133/58
[2018-10-01 12:42] VITALS: BP 177/92
--- NOTE | 2018-10-01 13:20 | NUR ---
Nutrition: Pt admitted with weakness, diverticulitis. Wt stable, 238#. Consult received for "DM, wound." 2gm Na/CHO controlled diet ordered. Unsure of po intake today. RX: glipizide, metformin. H/o COPD, DM, HTN, HLD, PVD, Rt BKA. BG 200s, albumin 3.4, BUN 22, cr 1.6. Pt has had nutrition/DM education in past. RD will not order protein packets at health system d/t renal FXN impaired. Mild risk at this time. Will follow wt, labs, po intake, 10/06/18.
[2018-10-01 16:00] VITALS: BP 170/60
--- NOTE | 2018-10-01 16:13 | NUR ---
MET WITH PT TO DISCUSS HOME SITUATION/DC PLANNING. PT LIVES WITH , SHE WORKS DURING THE DAY. PT IS INDEPENDENT AT HOME. USES PROSTHESIS, CANE, WALKER OR W/C AND HAS NEBULIZER. HAS HAD HH WITH [facility] IN PAST BUT DOESN'T FEEL HE NEEDS IT NOW. PT HAS BEEN TO INPT REHAB IN PAST ALSO. PLANS TO RETURN HOME AT DC. WILL FOLLOW
[2018-10-01 20:49] VITALS: BP 143/56
[2018-10-01 23:44] VITALS: BP 119/49
[2018-10-02 04:27] VITALS: BP 193/64
--- NOTE | 2018-10-02 05:10 | NUR ---
PT IS ABLE TO COMMUNICATE HIS NEEDS TO STAFF EFFECTIVELY. STARTING EARLY ON IN THE SHIFT, HE HAS REFUSED CONT. IV FLUIDS. HE HAS DENIED THE NEED FOR PAIN MEDICATION UP TO THIS TIME. LAURENCES ACCUCHECKS MAINTIANED. HE HAS BEEN UP TO THE BR WITH PROSTHESIS ON AND USING A CANE WHILE BEING SUPERVISED BY STAFF; TOLERATED WELL.
[2018-10-02 08:00] VITALS: BP 146/57
--- NOTE | 2018-10-02 09:31 | EKG ---
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: JAVID : 1945 Requested By: Sarwat Cadena Order Number: [id number] MD: Carson Bacon Measurements Intervals [place] Rate: 89 P: 12 [place]: 140 QRS: 36 QRSD: 81 T: 36 QT: 367 QTc: 447 Interpretive Statements Sinus rhythm Atrial premature complex Baseline wander in lead(s) V2 Compared to ECG 04/30/2018 18:40:47 Atrial premature complex(es) now present Electronically Signed On 10-02-2018 9:31:40 CDT by Carson Bacon [email or web address] <ELECTRONICALLY SIGNED> By: Carson Bacon MD, FACC 10/02/18 0931 33 33 Carson Bacon MD, [facility] /EPI
[2018-10-02 11:54] VITALS: BP 146/57
--- NOTE | 2018-10-02 11:56 | NUR ---
WAS ASKED TO TALK WITH PT AGAIN ABOUT DC PLANNING AND HH BY [facility]. MET WITH PT, HE STATED HE WAS AGREEABLE TO HH NOW AND WANTS TO USE [facility]. DISCUSSED [facility] PROGRAM ALSO PT HAS HAD FALLS AND IS ALONE SOME DURING THE DAY, HE IS AGREEABLE TO THAT ALSO. CALLED AND FAXED INITIAL REFERRAL TO BOTH AGENCIES, WILL FAX DC ORDERS WHEN AVAILABLE
[2018-10-02 12:00] VITALS: BP 119/55
--- NOTE | 2018-10-02 12:12 | NUR ---
ASSUMED PT CARE AT 0800, UP STAND BY ASSIST, USES CANE. O2 SAT 90'S RA. TRACING SR, PVC ON TELE. PT DENIES PAIN, WANTS TO GO HOME. PT FOR ACCU CHECK. PT LAST BM TODAY, REPORT SOME LOOSE STOOL. PT HAS Richy GIRON NOTED. AM ASSESSMENT CHARTED. MEDS GIVEN PER MAR. CALL LIGHT WITHIN REACH. WILL CONTINUE TO MONITOR.
[2018-10-02] MEDS ORDERED: CEFUROXIME500 MG PO (12:42)
[2018-10-02 13:20] VITALS: BP 146/57
--- NOTE | 2018-10-02 15:58 | NUR ---
DISCHARGED PLAN DISCUSSED WITH THE PT. MEDICATION SCRIPT GIVEN. IV, TELE REMOVED. REMINDED TO FOLLOW UP WITH PCP. PT HOME WITH HOME HEALTH. RD PROSTETIC CONSULTED FOR EVAL. ALL BELONGINGS PACKED AND CHECKED. LEFT THE UNIT AT 1500 VIA WHEELCHAIR.
== END 2018-10-02 15:00 | disposition home health service (06) | DRG 690 ==
LOC: M.ERS 20:04 → M.TBA-ER 21:51 → M.2W 21:51
PROVIDERS: Emergency Medicine Emergency Medical Services; ADMIT Internal Medicine
DX: N39.0 Urinary tract infection, site not specified (principal); K57.92 Diverticulitis of intestine, part unspecified, without perforation or abscess without bleeding; E11.51 Type 2 diabetes mellitus with diabetic peripheral angiopathy without gangrene; D69.6 Thrombocytopenia, unspecified; R31.9 Hematuria, unspecified; E11.22 Type 2 diabetes mellitus with diabetic chronic kidney disease; J44.9 Chronic obstructive pulmonary disease, unspecified; N18.3 Chronic kidney disease, stage 3 (moderate); I12.9 Hypertensive chronic kidney disease with stage 1 through stage 4 chronic kidney disease, or unspecified chronic kidney disease; E78.5 Hyperlipidemia, unspecified; Z98.52 Vasectomy status; Z89.511 Acquired absence of right leg below knee; Z79.84 Long term (current) use of oral hypoglycemic drugs; Z88.2 Allergy status to sulfonamides; Z82.49 Family history of ischemic heart disease and other diseases of the circulatory system; Z83.3 Family history of diabetes mellitus; Z82.0 Family history of epilepsy and other diseases of the nervous system; Z87.891 Personal history of nicotine dependence

== ENCOUNTER 2019-04-17 18:54 | Inpatient (IN) | payer OTHER, MEDICARE ==
[~2019-04-17] VITALS: Ht 177.8 cm; Wt 116.7 kg
[~2019-04-17 18:54] MED LIST changes: -ATORVASTATIN CA40 MG PO; +CEFUROXIME500 MG PO; +LIPITOR40 MG PO
[2019-04-17 19:16] VITALS: BP 135/57
[2019-04-17 19:59] LABS: INFLUENZA A ANTIGEN Negative (Negative); INFLUENZA B ANTIGEN Negative (Negative)
[2019-04-17 20:08] LABS: ABSOLUTE EOSINOPHILS 0.1 thou/uL (0.0-0.7); ABSOLUTE LYMPHOCYTES 0.7 thou/uL (0.8-5.3); ABSOLUTE MONOCYTES 0.4 thou/uL (0.0-1.2); ABSOLUTE NEUTROPHILS 3.5 thou/uL (1.6-8.1); BASOPHILS 0.7 %; EOSINOPHILS 2.4 %; HEMATOCRIT 27.9 % (42.0-52.0); LYMPHOCYTES 14.9 %; MCH 26.6 pg (26.0-34.0); MCHC 32.3 g/dL (28.0-37.0); MCV 82.3 fL (80.0-100.0); MONOCYTES 8.9 %; MPV 9.5 fl. (7.2-11.1); NUCLEATED RBCS 0 /100WBC; PLATELET COUNT* 85 thou/uL (150-400); POLYS 73.1 %; RBC 3.39 mil/uL (4.50-6.00); RDW-CV 16.6 % (10.5-14.5); WBC 4.9 thou/uL (4.0-11.0)
[2019-04-17 20:22] LABS: INR 1.1; PROTIME 11.5 Seconds (9.20-11.50)
[2019-04-17 20:25] LABS: CALCIUM 8.7 mg/dL (8.5-10.1); CREATININE 1.7 mg/dL (0.6-1.3)
[2019-04-17 20:27] LABS: POTASSIUM 6.1 mmol/L (3.5-5.1)
[2019-04-17 20:32] LABS: ALBUMIN 3.3 g/dL (3.4-5.0); TOTAL BILIRUBIN 0.4 mg/dL (<0.1-1.0); TOTAL PROTEIN 7.7 g/dL (6.4-8.2)
[2019-04-17 22:45] VITALS: BP 141/52
[2019-04-17 23:05] VITALS: BP 145/97
[2019-04-17 23:45] VITALS: BP 141/52
[2019-04-17 23:53] LABS: BE -2.5 mmol/L (-2 to +3); PCO2 38.5 mmHg (35.0-45.0); PO2 74.6 mmHg (75.0-100.0); pH 7.382 (7.340-7.450)
[2019-04-18 02:03] LABS: CALCIUM 8.5 mg/dL (8.5-10.1); CREATININE 1.8 mg/dL (0.6-1.3); POTASSIUM 5.8 mmol/L (3.5-5.1)
[2019-04-18 04:51] VITALS: BP 142/50
[2019-04-18 08:00] VITALS: BP 159/66
--- NOTE | 2019-04-18 09:20 | EKG ---
[place] [address] ELECTROCARDIOGRAM REPORT Name: LEONIDAS MERCADO Room: [address] ADM IN .R.#: [id number] Admission: 04/17/19 Attend Phys: Toshia escamilla Sa Discharge: Date of : 41 Date of Service: [birth year] Report #: [id number] THIS REPORT FOR: //name// [facility] ED Test Date: 2019-04-17 Test Time: 19:44:53 Pat Name: LEONIDAS MERCADO Department: Room: [facility] Gender: M Doctor Naturopathic: : 1945 Requested By: Donna Coker Order Number: [id number] MD: René Gusman Measurements Intervals [place] Rate: 83 P: 14 [place]: 140 QRS: 42 QRSD: 88 T: 64 QT: 363 QTc: 427 Interpretive Statements Sinus rhythm Ventricular premature complex Baseline wander in lead(s) V2,V5,V6 Compared to ECG 09/30/2018 20:34:21 Ventricular premature complex(es) now present Electronically Signed On 04-18-2019 9:19:01 JUNIOR HIGH SCHOOL TEACHER by René Gusman [email or web address] <ELECTRONICALLY SIGNED> By: René Gusman MD, FACC 04/18/19918 43 43 René Gusman MD, FAC /EPI
[2019-04-18 12:00] VITALS: BP 138/46
[2019-04-18 13:18] LABS: HEMATOCRIT 27.2 % (42.0-52.0); HEMOGLOBIN 8.6 gm/dL (14.0-18.0); MCHC 31.7 g/dL (28.0-37.0); MPV 9.4 fl. (7.2-11.1); NUCLEATED RBCS 0 /100WBC; PLATELET COUNT* 80 thou/uL (150-400); RBC 3.32 mil/uL (4.50-6.00); RDW-CV 16.6 % (10.5-14.5); WBC 4.4 thou/uL (4.0-11.0)
[2019-04-18 13:44] LABS: ABSOLUTE LYMPHOCYTES 0.5 thou/uL (0.8-5.3); ABSOLUTE NEUTROPHILS 3.9 thou/uL (1.6-8.1); PLATELET ESTIMATE DECREASED
[2019-04-18 16:00] VITALS: BP 159/68
[2019-04-18 20:20] VITALS: BP 111/31
[2019-04-18 20:28] VITALS: BP 138/51
[2019-04-19 00:12] VITALS: BP 121/53
[2019-04-19 04:39] VITALS: BP 106/52
[2019-04-19 04:40] LABS: CALCIUM 8.3 mg/dL (8.5-10.1); CREATININE 1.5 mg/dL (0.6-1.3); POTASSIUM 4.8 mmol/L (3.5-5.1); TOTAL BILIRUBIN 0.3 mg/dL (<0.1-1.0); TOTAL PROTEIN 6.7 g/dL (6.4-8.2)
[2019-04-19 08:00] VITALS: BP 103/39
[2019-04-19 11:34] VITALS: BP 147/60
[2019-04-19 15:43] VITALS: BP 176/70
[2019-04-19 16:25] LABS: CALCIUM 8.4 mg/dL (8.5-10.1); CREATININE 1.5 mg/dL (0.6-1.3); POTASSIUM 4.5 mmol/L (3.5-5.1); TOTAL BILIRUBIN 0.3 mg/dL (<0.1-1.0); TOTAL PROTEIN 6.8 g/dL (6.4-8.2)
[2019-04-19 20:00] VITALS: BP 163/71
[2019-04-20] VITALS: BP 112/64
[2019-04-20 04:00] VITALS: BP 174/78
[2019-04-20 08:00] VITALS: BP 197/78
--- NOTE | 2019-04-20 08:51 | CON ---
[address] [address] CONSULTATION Name: LEONIDAS MERCADO Room: [address] IN M.R.#: [id number] Admission: 04/17/19 Attend Phys: Toshia Snell Discharge: Date of : 41 Report #: [id number] THIS REPORT FOR: //name// cc: Shirley Hoover Maggie M. DO THIS REPORT FOR: //name// CC: Toshia Orozco DATE OF SERVICE: 04/18/2019 REQUESTING PHYSICIAN: Dr. Flynn. REASON FOR CONSULTATION: Hyperkalemia and chronic kidney disease. HISTORY OF PRESENT ILLNESS: The patient is a very pleasant 73-year-old gentleman, with medical history significant for chronic kidney disease stage 3, history of recurrent hyperkalemia, obesity, diabetes mellitus type 2, peripheral artery disease, COPD, and hypertension, who presents to the hospital with complaints of not feeling well, having some cough and shortness of breath. He states that symptoms started several days ago. The patient was found to be hypoxic. He had a chest x-ray done in the Emergency Room that revealed vascular congestion with diffuse interstitial infiltrates, more focal and bibasilar. His creatinine on admission was 1.8, which is around his baseline. His potassium was 6.6 down to 5.8 today. MEDICATIONS: The patient was on lisinopril 20 mg a day. He was started on albuterol, Zithromax, insulin, was giving a dose of Lasix yesterday and Solu-Medrol. PAST MEDICAL HISTORY: As I mentioned earlier. SOCIAL HISTORY: Used to smoke, but quit smoking 7 years ago. FAMILY HISTORY: Negative for renal disease. REVIEW OF SYSTEMS: Positive for symptoms as I mentioned earlier, otherwise all systems reviewed and negative. PAST SURGICAL HISTORY: Included right below knee amputation. PHYSICAL EXAMINATION: GENERAL: Awake, alert, oriented, states that he feels better. VITAL SIGNS: His blood pressure now is 140/50, heart rate 70, [place] [address] CONSULTATION Name: LEONIDAS MERCADO Room: [address] IN [facility]#: [id number] Admission: 04/17/19 Attend Phys: Toshia Snell Discharge: Date of : 43 Report #: [id number], afebrile. HEENT: Pupils are round. NECK: Fatty. LUNGS: Decreased air movements. No crackles. CARDIOVASCULAR: Very distant heart tones. ABDOMEN: Obese, soft. EXTREMITIES: Lower extremities, he has right below knee amputation. No edema on the left. LABORATORY DATA: Serum sodium 142, potassium 5.8, chloride 106, carbon dioxide 27, BUN 26, creatinine 1.8. ASSESSMENT: 1. Chronic kidney disease stage 3. Renal function at his baseline. 2. Hyperkalemia, likely due to lisinopril. 3. Respiratory failure due to volume overload and pneumonia. 4. Peripheral artery disease. 5. Diabetes mellitus type 2. 6. Obesity. 7. Hypertension. PLAN: 1. Stop his IV fluids. He has good p.o. intake. 2. Avoid SHEELA inhibitors or angiotensin receptor blockers. 3. Put him on 2-gram potassium restriction. 4. Continue with antibiotics. 5. Check his lab in the morning. Thank you very much. <ELECTRONICALLY SIGNED> By: Gavino Coelho MD 04/20/19 0851 1130 1405Alexdagoberto Coelho MD /nt
[2019-04-20 12:00] VITALS: BP 136/70
[2019-04-20] MEDS ORDERED: LASIX 40 MG TAB40 MG PO (13:50)
[2019-04-20] MEDS ORDERED: AUGMENTIN 875-1 EACH PO (13:50)
== END 2019-04-20 16:48 | disposition home or self-care (01) | DRG 177 ==
LOC: M.ERS 18:54 → M.TBA-ER 21:09 → M.2W 21:09
PROVIDERS: Emergency Medicine; Internal Medicine; Internal Medicine Nephrology; ADMIT Family Medicine
DX: J69.0 Pneumonitis due to inhalation of food and vomit (principal); J96.01 Acute respiratory failure with hypoxia; J44.1 Chronic obstructive pulmonary disease with (acute) exacerbation; N17.9 Acute kidney failure, unspecified; E87.2 Acidosis; J44.0 Chronic obstructive pulmonary disease with (acute) lower respiratory infection; E87.5 Hyperkalemia; N18.3 Chronic kidney disease, stage 3 (moderate); E66.9 Obesity, unspecified; E11.22 Type 2 diabetes mellitus with diabetic chronic kidney disease; E11.51 Type 2 diabetes mellitus with diabetic peripheral angiopathy without gangrene; E78.5 Hyperlipidemia, unspecified; D64.9 Anemia, unspecified; D69.6 Thrombocytopenia, unspecified; E11.65 Type 2 diabetes mellitus with hyperglycemia; G47.33 Obstructive sleep apnea (adult) (pediatric); I12.9 Hypertensive chronic kidney disease with stage 1 through stage 4 chronic kidney disease, or unspecified chronic kidney disease; Z79.899 Other long term (current) drug therapy; Z89.511 Acquired absence of right leg below knee; Z68.36 Body mass index [BMI] 36.0-36.9, adult; Z79.4 Long term (current) use of insulin; Z79.51 Long term (current) use of inhaled steroids; Z87.891 Personal history of nicotine dependence; Z98.52 Vasectomy status; Z88.2 Allergy status to sulfonamides; Z88.8 Allergy status to other drugs, medicaments and biological substances; Z82.49 Family history of ischemic heart disease and other diseases of the circulatory system; Z82.5 Family history of asthma and other chronic lower respiratory diseases; Z83.3 Family history of diabetes mellitus; Z82.0 Family history of epilepsy and other diseases of the nervous system; Z68.38 Body mass index [BMI] 38.0-38.9, adult

== ENCOUNTER 2019-05-01 16:43 | Inpatient (IN) | payer OTHER, MEDICARE ==
[~2019-05-01] VITALS: Ht 177.8 cm; Wt 117.9 kg
[~2019-05-01 16:43] MED LIST changes: +LASIX 40 MG TAB40 MG PO
[2019-05-01 17:05] VITALS: BP 121/54
[2019-05-01 17:19] LABS: ABSOLUTE BASOPHILS 0.1 thou/uL (0.0-0.2); ABSOLUTE EOSINOPHILS 0.1 thou/uL (0.0-0.7); ABSOLUTE LYMPHOCYTES 0.8 thou/uL (0.8-5.3); ABSOLUTE MONOCYTES 0.3 thou/uL (0.0-1.2); ABSOLUTE NEUTROPHILS 2.8 thou/uL (1.6-8.1); BASOPHILS 1.3 %; HEMATOCRIT 25.2 % (42.0-52.0); LYMPHOCYTES 19.5 %; MCH 25.9 pg (26.0-34.0); MCHC 31.6 g/dL (28.0-37.0); MONOCYTES 7.5 %; MPV 8.9 fl. (7.2-11.1); NUCLEATED RBCS 0 /100WBC; PLATELET COUNT* 97 thou/uL (150-400); POLYS 69.7 %; RBC 3.07 mil/uL (4.50-6.00); RDW-CV 16.9 % (10.5-14.5); WBC 4.1 thou/uL (4.0-11.0)
[2019-05-01 17:27] LABS: APTT 25.4 Seconds (25.0-31.3); CREATININE 2.3 mg/dL (0.6-1.3); INR 1.1; PROTIME 11.4 Seconds (9.20-11.50)
[2019-05-01 17:33] LABS: POTASSIUM 6.9 mmol/L (3.5-5.1)
[2019-05-01 17:38] LABS: ALBUMIN 3.1 g/dL (3.4-5.0); TOTAL BILIRUBIN 0.4 mg/dL (<0.1-1.0); TOTAL PROTEIN 6.9 g/dL (6.4-8.2)
[2019-05-01] MEDS ORDERED: [UNRECOGNIZED DRUG - OTHER] (20:17)
[2019-05-01 21:00] VITALS: BP 148/62
[2019-05-01 21:01] VITALS: BP 165/51
[2019-05-02] VITALS (7 sets, daily range): BP systolic 122–172; BP diastolic 52–77
[2019-05-02 03:22] LABS: BE -1.2 mmol/L (-2 to +3); PCO2 39.7 mmHg (35.0-45.0); PO2 73.6 mmHg (75.0-100.0); pH 7.392 (7.340-7.450)
[2019-05-02 06:35] LABS: CALCIUM 8.4 mg/dL (8.5-10.1); CREATININE 2.3 mg/dL (0.6-1.3)
[2019-05-02 06:36] LABS: POTASSIUM 6.1 mmol/L (3.5-5.1)
[2019-05-02 11:09] LABS: CALCIUM 8.7 mg/dL (8.5-10.1); CREATININE 1.9 mg/dL (0.6-1.3)
--- NOTE | 2019-05-02 16:33 | EKG ---
[place] [address] ELECTROCARDIOGRAM REPORT Name: LEONIDAS MERCADO Room: [address] IN .R.#: [id number] Admission: 05/01/19 Attend Phys: Bradford Flynn Discharge: Date of : 41 Date of Service: 05/01/19 1718 Report #: [id number] THIS REPORT FOR: //name// [facility] ED Test Date: 2019-05-01 Test Time: 17:18:25 Pat Name: LEONIDAS MERCADO Department: Room: [facility] Gender: M Typewriters Functional Tester: : 1945 Requested By: Hermilo Willard Order Number: [id number] MD: Giorgi Adame Measurements Intervals [place] Rate: 76 P: 56 [place]: 150 QRS: 47 QRSD: 93 T: 52 QT: 389 QTc: 438 Interpretive Statements Sinus rhythm Multiple premature complexes, vent & supraven Compared to ECG 04/17/2019 19:44:53 no significant change Electronically Signed On 05-02-2019 16:31:48 CDT by Giorgi Adame [email or web address] <ELECTRONICALLY SIGNED> By: Giorgi Adame MD, FAC 05/02/19 1631 1718 1718 Giorgi Adame MD, [facility] /EPI
[2019-05-03] VITALS: BP 127/67
[2019-05-03 03:55] VITALS: BP 140/58
[2019-05-03 09:35] VITALS: BP 156/56
[2019-05-03 11:55] LABS: CALCIUM 7.8 mg/dL (8.5-10.1); CREATININE 1.5 mg/dL (0.6-1.3)
[2019-05-03 12:11] LABS: ALBUMIN 3.3 g/dL (3.4-5.0); CALCIUM 8.4 mg/dL (8.5-10.1); CREATININE 1.5 mg/dL (0.6-1.3); PHOSPHORUS* 3.3 mg/dL (2.5-4.9)
[2019-05-03 12:56] VITALS: BP 156/56
[2019-05-03 13:02] VITALS: BP 156/56
[2019-05-03] MEDS ORDERED: NORVASC 2.5 MG2.5 M1 PO (14:04)
--- NOTE | 2019-05-03 17:46 | CON ---
[address] [address] CONSULTATION Name: LEONIDAS MERCADO Room: [address] IN M.R.#: [id number] Admission: 05/01/19 Attend Phys: Luis Herrmann Discharge: 05/03/19 Date of : 43 Report #: [id number] THIS REPORT FOR: //name// cc: Shirley Hoover Maggie M. DO ~ THIS REPORT FOR: //name// CC: Shirley Flynn NEPHROLOGY CONSULTATION CONSULTING PHYSICIAN: Bradford Flynn DO REASON FOR CONSULTATION: Hyperkalemia and renal insufficiency. HISTORY OF PRESENT ILLNESS: A 73-year-old gentleman with a history of recent pneumonia. He was on 2 different antibiotics, one of which was Augmentin, the second one which he does not recall the name, but it was not a sulfa antibiotic as he is allergic to this. He is admitted with severe hyperkalemia with potassium as high as 7 during this hospital stay and a creatinine of 2.3. His primary physician recently did refer him to see someone in our group and he had an upcoming appointment, but has not yet been seen in our office. He denies any other new medications or medication changes other than the antibiotics. No nausea, vomiting, diarrhea or decreased intake. No NSAID use. No current complaints. REVIEW OF SYSTEMS: Constitutional, psych, heme, eyes, ENT, respiratory, cardiac, GI, , endocrine, all negative except as documented above. PAST MEDICAL HISTORY: Diabetes, hypertension, peripheral vascular disease, history of right BKA, COPD, history of chronic anemia, chronic thrombocytopenia. CURRENT MEDICATIONS: Reviewed. SOCIAL HISTORY: Former smoker. FAMILY HISTORY: Noncontributory to current clinical case. PHYSICAL EXAMINATION: VITAL SIGNS: Blood pressure 160/67, pulse has been mostly in the 80s, respirations mostly in the 20s, and he is afebrile. GENERAL: No acute distress. EYES: Open. EARS: Externally normal. NECK: Supple. CARDIOVASCULAR: [place] [address] CONSULTATION Name: LEONIDAS MERCADO Room: [address]#: [id number] Admission: 05/01/19 Attend Phys: Luis Herrmann Discharge: 05/03/19 Date of : 43 Report #: [id number] LUNGS: No crackles. ABDOMEN: Soft. MUSCULOSKELETAL: Nontender. Right BKA. PSYCHIATRIC: Awake, alert. LABORATORY DATA: White cell count 4.1, hemoglobin 8, platelets 97. Sodium 142, potassium 6, chloride 105, bicarbonate 24, BUN 32, creatinine 1.9, glucose 286, calcium 8.7. ASSESSMENT: 1. Acute kidney injury with admission creatinine of 2.3 in the setting of lisinopril, hydrochlorothiazide, triamterene. 2. Hyperkalemia in the setting of renal insufficiency, lisinopril, hydrochlorothiazide, triamterene. 3. Hypoalbuminemia with an albumin of 3.1. 4. Insulin-dependent diabetes. 5. Peripheral vascular disease, history of right below-knee amputation. 6. Chronic obstructive pulmonary disease. 7. History of congestive heart failure. 8. Recent pneumonia. 9. Chronic kidney disease stage 3, baseline creatinine appears to be around 1.5-1.6 and has been up to 2. PLAN: 1. Lisinopril and hydrochlorothiazide have been discontinued. 2. Check CK. 3. Currently, is on some IV fluids. We will have to monitor this closely as he has underlying history of heart failure and does have some lower extremity edema. 4. Monitor I's and O's. 5. Check U/A. 6. Check renal ultrasound. 7. A 2 gram dietary potassium restriction. Potassium is trending down. Creatinine is slowly improving. He will need outpatient followup once ready for discharge. Thank you for requesting my opinion in the care and management of this patient. <ELECTRONICALLY SIGNED> By: Mary Kay Gonzales MD 05/03/19 1746 1726 0107Aeleni Gonzales MD /nt
== END 2019-05-03 14:00 | disposition home or self-care (01) | DRG 189 ==
LOC: M.ERS 16:43 → M.2W 18:27 → M.TBA-ER 18:27 → M.2W 21:00
PROVIDERS: Family Medicine; Internal Medicine; Internal Medicine Nephrology; ADMIT Internal Medicine
DX: J96.01 Acute respiratory failure with hypoxia (principal); N17.9 Acute kidney failure, unspecified; I13.0 Hypertensive heart and chronic kidney disease with heart failure and stage 1 through stage 4 chronic kidney disease, or unspecified chronic kidney disease; E11.51 Type 2 diabetes mellitus with diabetic peripheral angiopathy without gangrene; J44.9 Chronic obstructive pulmonary disease, unspecified; N18.3 Chronic kidney disease, stage 3 (moderate); E87.5 Hyperkalemia; E11.22 Type 2 diabetes mellitus with diabetic chronic kidney disease; D64.9 Anemia, unspecified; I50.9 Heart failure, unspecified; D69.6 Thrombocytopenia, unspecified; E78.5 Hyperlipidemia, unspecified; Z98.52 Vasectomy status; Z89.511 Acquired absence of right leg below knee; Z88.6 Allergy status to analgesic agent; Z88.2 Allergy status to sulfonamides; Z88.8 Allergy status to other drugs, medicaments and biological substances; Z87.891 Personal history of nicotine dependence; Z79.4 Long term (current) use of insulin; Z82.49 Family history of ischemic heart disease and other diseases of the circulatory system; Z83.3 Family history of diabetes mellitus

== ENCOUNTER 2019-05-08 21:29 | Inpatient (IN) | payer OTHER, MEDICARE ==
[~2019-05-08] VITALS: Ht 180.3 cm; Wt 108.9 kg
[~2019-05-08 21:29] MED LIST changes: +NORVASC 2.5 MG2.5 M1 PO; +[UNRECOGNIZED DRUG - OTHER]
[2019-05-08 21:45] VITALS: BP 148/47
[2019-05-08 22:44] LABS: ABSOLUTE EOSINOPHILS 0.2 thou/uL (0.0-0.7); ABSOLUTE LYMPHOCYTES 1.1 thou/uL (0.8-5.3); ABSOLUTE MONOCYTES 0.6 thou/uL (0.0-1.2); ABSOLUTE NEUTROPHILS 3.9 thou/uL (1.6-8.1); BASOPHILS 0.3 %; EOSINOPHILS 2.6 %; HEMATOCRIT 27.3 % (42.0-52.0); HEMOGLOBIN 8.7 gm/dL (14.0-18.0); LYMPHOCYTES 19.3 %; MCH 25.3 pg (26.0-34.0); MCHC 31.7 g/dL (28.0-37.0); MCV 79.9 fL (80.0-100.0); MPV 9.4 fl. (7.2-11.1); NUCLEATED RBCS 0 /100WBC; PLATELET COUNT* 91 thou/uL (150-400); POLYS 67.8 %; RBC 3.41 mil/uL (4.50-6.00); RDW-CV 16.7 % (10.5-14.5); WBC 5.7 thou/uL (4.0-11.0)
[2019-05-08 22:49] LABS: CREATININE 1.4 mg/dL (0.6-1.3); INR 1.2; POTASSIUM 4.4 mmol/L (3.5-5.1); PROTIME 11.9 Seconds (9.20-11.50)
[2019-05-08 22:59] LABS: ALBUMIN 3.4 g/dL (3.4-5.0); TOTAL BILIRUBIN 0.5 mg/dL (<0.1-1.0); TOTAL PROTEIN 7.2 g/dL (6.4-8.2)
[2019-05-08 23:29] LABS: BE 2.4 mmol/L (-2 to +3); PCO2 45.3 mmHg (35.0-45.0); PO2 66.5 mmHg (75.0-100.0); pH 7.401 (7.340-7.450)
[2019-05-09] VITALS (24 sets, daily range): BP systolic 93–192; BP diastolic 42–107
[2019-05-09 01:42] LABS: URINE BILIRUBIN NEGATIVE (Negative); URINE BLOOD NEGATIVE (Negative); URINE CLARITY CLEAR; URINE COLOR YELLOW; URINE GLUCOSE-RANDOM NEGATIVE (Negative); URINE KETONES NEGATIVE (Negative); URINE LEUKOCYTES-REFLEX TRACE (Negative); URINE NITRITE-REFLEX NEGATIVE (Negative); URINE PROTEIN NEGATIVE (Negative); URINE UROBILINOGEN 0.2 E.U./dl (0.2-1.0)
[2019-05-09 01:50] LABS: BACTERIA-REFLEX >30 Many /HPF (None Seen); CASTS None Seen /LPF (None Seen); CRYSTALS None Seen /LPF (None Seen); MUCUS 4-6 Moderate strn/LPF (None Seen); SQUAMOUS 0-3 Few /LPF (0-3); URINE RBC 3-10 Few /HPF (0-2); URINE WBC-REFLEX >25 Many /HPF (0-5); WBC CLUMPS Few (None Seen)
[2019-05-09 02:56] LABS: BE -0.2 mmol/L (-2 to +3); PCO2 VENOUS 53.4 mmHg (41.0-51.0); PO2 VENOUS 112.8 mmHg (35.0-45.0)
--- NOTE | 2019-05-09 13:06 | CON ---
[address] [address] CONSULTATION Name: LEONIDAS MERCADO Room: [address] ADM IN M.R.#: [id number] Admission: 05/08/19 Attend Phys: Lamont Seymour MD Discharge: Date of : 41 Report #: [id number] THIS REPORT FOR: //name// cc: Shirley Hoover Maggie M. DO ~ THIS REPORT FOR: //name// CC: Lamont Hoover DATE OF SERVICE: 05/09/2019 INFECTIOUS DISEASE CONSULTATION ATTENDING PHYSICIAN: Dr. Seymour. REASON FOR EVALUATION: Pneumonitis, complicated by severe respiratory failure. HISTORY OF PRESENT ILLNESS: Chart reviewed and patient examined. This is a 73-year-old gentleman with extensive medical history including diabetes mellitus, who has actually been hospitalized twice in the last month, initial one was for pneumonitis and with complications, discharged on the , previous to that was again hospitalized on a latter part of March. At that point, I have seen him, he presented with conflicting reports, one described progressive dyspnea and cough for approximately a week and other reports stated somewhat abrupt onset 2 hours after eating both which described fairly significant progression. Just prior to presenting to the ER, he was intubated urgently and was found to be hemodynamically unstable. It is improved somewhat as of recently. Initial CBC showed a normal white count, low platelets. He does have a lymphocyte count of 1100. Lactic acid of 2.1. Chest x-ray showed patchy bilateral airspace infiltrate. Blood cultures are sterile thus far. He was empirically placed on therapy with vancomycin, piperacillin, and tazobactam. He is not responsive at this point, maintained on the vent. ALLERGIES: SULFA, OXYCODONE, ACETAMINOPHEN. CURRENT MEDICATIONS: Include Levaquin, enoxaparin, ipratropium and albuterol inhaler, pantoprazole, vancomycin, Zosyn, propofol. PAST MEDICAL HISTORY: Diabetes mellitus, hypertension, peripheral vascular disease, hyperlipidemia, previous right below-knee amputation, COPD, renal insufficiency, chronic anemia and thrombocytopenia. SOCIAL HISTORY: Former smoker. No ethanol. No illicit drug use. FAMILY HISTORY: [place] [address] CONSULTATION Name: JESSLEONIDAS Room: [address]#: [id number] Admission: 05/08/19 Attend Phys: Lamont Seymour MD Discharge: Date of : 41 Report #: [id number] REVIEW OF SYSTEMS: Unobtainable. PHYSICAL EXAMINATION: GENERAL: He is lying supine. He is intubated. OG tube in place. He is sedated. He is morbidly obese. VITAL SIGNS: Temperature 98.8, pulse 74, respirations 16, blood pressure 138/66. SKIN: Warm, dry. I do not appreciate any rashes. HEENT: He has ET, OG tube in place. There is no central line at this point. NECK: Appears to be supple. LUNGS: Scattered coarse breath sounds. HEART: Regular. I do not appreciate murmur. ABDOMEN: Somewhat firm, distended. There are no overt peritoneal signs. GENITOURINARY AND RECTAL: Deferred. LABORATORY DATA: Chest x-ray as described above; cardiomegaly, extensive infiltrates. Urinalysis; greater than 25 white cells, greater than 30 bacteria. Lactic acid was 2.0 most recently. Blood sugars have been somewhat variable, although early this morning 44, more recently 85. ASSESSMENT: Severe pneumonitis, complicated by respiratory failure, now on mechanical ventilatory support. This is a rehospitalization with pneumonitis. It is noted that he was here briefly during the period through through 02 of May, previous to that through March. At this point, agree with evaluation, isolation for possible COVIDp-19. We will await those results. There was discussion with Dr. Seymour, he may be a candidate for hydroxychloroquine as well, certainly is critically ill at this point, supportive measures. <ELECTRONICALLY SIGNED> By: Wai Jackson MD 05/09/19 1306 1119 1301Joseyesenia Jackson MD /nt
--- NOTE | 2019-05-09 14:13 | EKG ---
[place] [address] ELECTROCARDIOGRAM REPORT Name: LEONIDAS MERCADO Room: [address] ADM IN M.R.#: [id number] Admission: 05/08/19 Attend Phys: Lamont Seymour, Discharge: Date of : 41 Date of Service: 05/08/198 Report #: [id number] THIS REPORT FOR: //name// [facility] ED Test Date: 2019-05-08 Test Time: 22:18:28 Pat Name: LEONIDAS MERCADO Department: Room: [facility] Gender: M Networking Specialist: MR : 1945 Requested By: Donna Coker Order Number: [id number] MD: Carson Bacon Measurements Intervals [place] Rate: 88 P: 26 NV: 135 QRS: 40 QRSD: 89 T: 32 QT: 362 QTc: 438 Interpretive Statements Sinus rhythm Paired ventricular premature complexes Compared to ECG 05/01/2019 17:18:25 Ventricular premature complex(es) now present Electronically Signed On 05-09-2019 14:11:45 CDT by Carson Bacon [email or web address] <ELECTRONICALLY SIGNED> By: Carson Bacon MD, FACC 05/09/19 1411 2218 2218 Carson Bacon MD, [facility] /EPI
[2019-05-10] VITALS (30 sets, daily range): BP systolic 92–162; BP diastolic 40–75
[2019-05-10 04:56] LABS: HEMATOCRIT 22.2 % (42.0-52.0); MCH 25.1 pg (26.0-34.0); MCHC 31.4 g/dL (28.0-37.0); MCV 79.9 fL (80.0-100.0); MPV 10.1 fl. (7.2-11.1); RBC 2.78 mil/uL (4.50-6.00); RDW-CV 16.4 % (10.5-14.5); WBC 3.8 thou/uL (4.0-11.0)
[2019-05-10 04:58] LABS: BE -0.9 mmol/L (-2 to +3); PCO2 38.8 mmHg (35.0-45.0); PO2 62.9 mmHg (75.0-100.0); pH 7.403 (7.340-7.450)
[2019-05-10 05:19] LABS: ALBUMIN 2.6 g/dL (3.4-5.0); CALCIUM 6.9 mg/dL (8.5-10.1); CREATININE 1.6 mg/dL (0.6-1.3); MAGNESIUM 1.4 mg/dL (1.8-2.4); POTASSIUM 4.6 mmol/L (3.5-5.1); TOTAL BILIRUBIN 0.7 mg/dL (<0.1-1.0); TOTAL PROTEIN 5.8 g/dL (6.4-8.2)
--- NOTE | 2019-05-10 13:41 | EKG ---
[place] [address] ELECTROCARDIOGRAM REPORT Name: LEONIDAS MERCADO Room: [address] ADM IN M.R.#: [id number] Admission: 05/08/19 Attend Phys: Lamont Seymour, Discharge: Date of : 41 Date of Service: 05/10/19 0851 Report #: [id number] THIS REPORT FOR: //name// [facility] Test Date: 2019-05-10 Test Time: 08:51:40 Pat Name: LEONIDAS MERCADO Department: Room: [address] Gender: M Studio Engineer: [facility] : 1945 Requested By: Lamont Seymour Order Number: [id number] MD: René Gusman Measurements Intervals [place] Rate: 75 P: -30 SD: 104 QRS: 28 QRSD: 90 T: 38 QT: 438 QTc: 490 Interpretive Statements Sinus rhythm Short SD interval Borderline low voltage, extremity leads Borderline prolonged QT interval Compared to ECG 05/08/2019 22:18:28 Short SD interval now present Ventricular premature complex(es) no longer present Electronically Signed On 05-10-2019 13:40:24 CDT by René Gusman [email or web address] <ELECTRONICALLY SIGNED> By: René Gusman MD, FACC 05/10/19 1340 0851 0851 René Gusman MD, FAC /EPI
[2019-05-11] VITALS (18 sets, daily range): BP systolic 111–162; BP diastolic 55–72
[2019-05-11 03:37] LABS: MCH 25.6 pg (26.0-34.0); MCHC 31.8 g/dL (28.0-37.0); MCV 80.6 fL (80.0-100.0); RBC 2.72 mil/uL (4.50-6.00); WBC 3.3 thou/uL (4.0-11.0)
[2019-05-11 03:50] LABS: CALCIUM 7.5 mg/dL (8.5-10.1); CREATININE 1.9 mg/dL (0.6-1.3); MAGNESIUM 1.9 mg/dL (1.8-2.4); POTASSIUM 4.8 mmol/L (3.5-5.1)
[2019-05-11 05:28] LABS: BE -5.2 mmol/L (-2 to +3); PCO2 38.1 mmHg (35.0-45.0); PO2 74.1 mmHg (75.0-100.0)
[2019-05-12] VITALS (18 sets, daily range): BP systolic 97–136; BP diastolic 47–68
[2019-05-12 07:14] LABS: BE -2.8 mmol/L (-2 to +3); PCO2 35.9 mmHg (35.0-45.0); pH 7.398 (7.340-7.450)
[2019-05-12 08:40] LABS: HEMATOCRIT 25.6 % (42.0-52.0); HEMOGLOBIN 8.1 gm/dL (14.0-18.0); MCH 25.3 pg (26.0-34.0); MCHC 31.6 g/dL (28.0-37.0); MCV 80.1 fL (80.0-100.0); RBC 3.19 mil/uL (4.50-6.00); RDW-CV 17.1 % (10.5-14.5); WBC 3.7 thou/uL (4.0-11.0)
[2019-05-12 09:04] LABS: ALBUMIN 2.8 g/dL (3.4-5.0); CALCIUM 7.8 mg/dL (8.5-10.1); CREATININE 1.9 mg/dL (0.6-1.3); MAGNESIUM 2.3 mg/dL (1.8-2.4); POTASSIUM 4.9 mmol/L (3.5-5.1); TOTAL BILIRUBIN 0.4 mg/dL (<0.1-1.0); TOTAL PROTEIN 6.6 g/dL (6.4-8.2)
[2019-05-12 09:27] LABS: % SATURATION 2 % (20-39); IRON 9 ug/dL (50-175)
[2019-05-13] VITALS (37 sets, daily range): BP systolic 101–141; BP diastolic 30–98
[2019-05-13 06:00] LABS: BE -1.2 mmol/L (-2 to +3); PCO2 39.6 mmHg (35.0-45.0); PO2 89.9 mmHg (75.0-100.0); pH 7.392 (7.340-7.450)
[2019-05-13 06:51] LABS: HEMOGLOBIN 7.9 gm/dL (14.0-18.0); MCH 25.6 pg (26.0-34.0); MCHC 31.7 g/dL (28.0-37.0); MCV 80.7 fL (80.0-100.0); MPV 9.3 fl. (7.2-11.1); RBC 3.1 mil/uL (4.50-6.00); RDW-CV 17.4 % (10.5-14.5); WBC 4.1 thou/uL (4.0-11.0)
[2019-05-13 07:07] LABS: ALBUMIN 2.6 g/dL (3.4-5.0); CALCIUM 8.3 mg/dL (8.5-10.1); CREATININE 1.7 mg/dL (0.6-1.3); MAGNESIUM 2.1 mg/dL (1.8-2.4); POTASSIUM 4.3 mmol/L (3.5-5.1); TOTAL BILIRUBIN 0.4 mg/dL (<0.1-1.0); TOTAL PROTEIN 5.9 g/dL (6.4-8.2)
--- NOTE | 2019-05-13 13:52 | 2DMMODE ---
[place] [address] 2 D/M-MODE ECHOCARDIOGRAM Name: LEONIDAS MERCADO Room: [facility] IN .R.#: [id number] Admission: 05/08/19 Attend Phys: Lamont Seymour, Discharge: Date of : 41 Date of Service: 05/13/19 1351 Report #: [id number] THIS REPORT FOR: cc: Shirley Hoover Maggie M. DO Blick,René Hamm MD [facility] ~ APPROVED REPORT Study performed: 05/13/2019 09:51:03 EXAM: Comprehensive 2D, Doppler, and color-flow Echocardiogram Patient Location: In-Patient Room #: 003 Status: routine BSA: 2.42 HR: 55 bpm BP: 120/58 mmHg Rhythm: NSR Other Information Study Quality: Good Indications Elevated BNP, resp failure 2D Dimensions IVSd: 9.52 (7-11mm) LVOT Diam: 20.19 (18-24mm) LVDd: 43.51 mm PWd: 8.62 (7-11mm) Ascending Ao: 39.00 (22-36mm) LVDs: 25.26 (25-40mm) Aortic Root: 34.94 mm Volumes Left Atrial Volume (Systole) LA ESV Index: 36.80 mL/m2 Aortic Valve AoV Peak Isidoro.: 1.42 m/s AO Peak Gr.: 8.04 mmHg LVOT Max P.19 mmHg AO Mean Gr.: 4.12 mmHg LVOT Mean P.01 mmHg LVOT Max V: 1.14 m/s AO V2 VTI: 26.16 cm LVOT Mean V: 0.63 m/s DAHIANA (VTI): 3.28 cm2 LVOT V1 VTI: 26.84 [place] [address] 2 D/M-MODE ECHOCARDIOGRAM Name: LEONIDAS MERCADO Room: [address] IN ..#: [id number] Admission: 05/08/19 Attend Phys: Lamont Seymour, Discharge: Date of : 41 Date of Service: 05/13/19 1351 Report #: [id number] Mitral Valve E/A Ratio: 2.52 MV Decel. Time: 167.83 ms MV E Max Isidoro.: 1.35 m/s MV PHT: 48.67 ms MVA (PHT): 4.52 cm2 TDI E/Lateral E': 16.88 E/Medial E': 13.50 Medial E' Isidoro.: 0.10 m/s Lateral E' Isidoro.: 0.08 m/s Pulmonary Valve PV Peak Isidoro.: 0.99 m/s PV Peak Gr.: 3.94 mmHg Tricuspid Valve RAP Estimate: 5.00 mmHg TR Peak Gr.: 34.71 mmHg RVSP: 39.00 mmHg PA Pressure: 39.00 mmHg Left Ventricle The left ventricle is normal size. There is normal LV segmental wall motion. There is normal left ventricular wall thickness. Left ventricular systolic function is normal. The left ventricular ejection fraction is within the normal range. LVEF is 55-60%. This study is not technically sufficient to allow evaluation of the LV diastolic function. Right Ventricle The right ventricle is normal size. The right ventricular systolic function is normal. Atria Left atrium is mildly dilated. The right atrium size is normal. Aortic Valve Mild aortic valve sclerosis. No aortic regurgitation is present. There is no aortic valvular stenosis. Mitral Valve There is mitral annular calcification. Mild mitral regurgitation. No evidence of mitral valve stenosis. Tricuspid Valve The tricuspid valve is normal in structure[place] [address] 2 D/M-MODE ECHOCARDIOGRAM Name: LEONIDAS MERCADO Room: [address]#: [id number] Admission: 05/08/19 Attend Phys: Lamont Seymour, Discharge: Date of : 41 Date of Service: 05/13/19 1351 Report #: [id number] regurgitation. estimated pa pressure 45 mm Hg Pulmonic Valve The pulmonary valve is normal in structure. There is no pulmonic valvular regurgitation. Great Vessels Aortic root is mildly dilated. IVC is normal in size and collapses >50% with inspiration. Pericardium There is no pericardial effusion. <Conclusion> LVEF is 55-60%. Left atrium is mildly dilated. Mild aortic valve sclerosis. Mild mitral regurgitation. Trace tricuspid regurgitation. estimated pa pressure 45 mm Hg <ELECTRONICALLY SIGNED> By: René Gusman MD, FACC 05/13/19 1351 1351 1351 René Gusman MD, FACC /INF
[2019-05-14] VITALS (24 sets, daily range): BP systolic 109–155; BP diastolic 37–63
[2019-05-14 04:02] LABS: HEMOGLOBIN 8.2 gm/dL (14.0-18.0)
[2019-05-14 04:33] LABS: ALBUMIN 2.7 g/dL (3.4-5.0); CALCIUM 8.6 mg/dL (8.5-10.1); CREATININE 1.7 mg/dL (0.6-1.3); MAGNESIUM 2.1 mg/dL (1.8-2.4); POTASSIUM 4.5 mmol/L (3.5-5.1); TOTAL BILIRUBIN 0.4 mg/dL (<0.1-1.0); TOTAL PROTEIN 6.2 g/dL (6.4-8.2)
[2019-05-14 04:36] LABS: HEMATOCRIT 25.6 % (42.0-52.0); MCH 25.4 pg (26.0-34.0); MCHC 31.9 g/dL (28.0-37.0); MCV 79.7 fL (80.0-100.0); MPV 9.2 fl. (7.2-11.1); RBC 3.21 mil/uL (4.50-6.00)
[2019-05-14 06:06] LABS: BE 1.5 mmol/L (-2 to +3); PCO2 35.4 mmHg (35.0-45.0); PO2 72.5 mmHg (75.0-100.0); pH 7.469 (7.340-7.450)
[2019-05-15] VITALS (22 sets, daily range): BP systolic 114–170; BP diastolic 51–94
[2019-05-15 04:23] LABS: HEMATOCRIT 27.4 % (42.0-52.0); HEMOGLOBIN 8.7 gm/dL (14.0-18.0); MCH 25.4 pg (26.0-34.0); MCHC 31.9 g/dL (28.0-37.0); MCV 79.8 fL (80.0-100.0); MPV 8.9 fl. (7.2-11.1); RBC 3.44 mil/uL (4.50-6.00); RDW-CV 16.8 % (10.5-14.5); WBC 4.6 thou/uL (4.0-11.0)
[2019-05-15 04:45] LABS: ALBUMIN 2.7 g/dL (3.4-5.0); CALCIUM 8.1 mg/dL (8.5-10.1); CREATININE 1.8 mg/dL (0.6-1.3); MAGNESIUM 1.7 mg/dL (1.8-2.4); POTASSIUM 3.7 mmol/L (3.5-5.1); TOTAL BILIRUBIN 0.5 mg/dL (<0.1-1.0); TOTAL PROTEIN 6.4 g/dL (6.4-8.2)
[2019-05-15 04:57] LABS: BE 4.5 mmol/L (-2 to +3); PCO2 40.1 mmHg (35.0-45.0); PO2 62.6 mmHg (75.0-100.0)
[2019-05-15 18:02] LABS: BE 4.8 mmol/L (-2 to +3); PCO2 42.1 mmHg (35.0-45.0); PO2 65.5 mmHg (75.0-100.0); pH 7.458 (7.340-7.450)
[2019-05-16] VITALS (34 sets, daily range): BP systolic 104–189; BP diastolic 38–104
[2019-05-16 04:15] LABS: CALCIUM 8.8 mg/dL (8.5-10.1); CREATININE 1.4 mg/dL (0.6-1.3); MAGNESIUM 1.5 mg/dL (1.8-2.4); POTASSIUM 3.5 mmol/L (3.5-5.1)
[2019-05-17] VITALS (30 sets, daily range): BP systolic 102–157; BP diastolic 65–96
[2019-05-17] MEDS ORDERED: LOPRESSOR25 PO (07:30)
[2019-05-17 08:59] LABS: CALCIUM 8.6 mg/dL (8.5-10.1); CREATININE 1.2 mg/dL (0.6-1.3); POTASSIUM 3.4 mmol/L (3.5-5.1)
[2019-05-18] VITALS: BP 127/49
[2019-05-18 04:00] VITALS: BP 127/72
[2019-05-18 08:45] VITALS: BP 126/87
[2019-05-18 12:00] VITALS: BP 125/74
[2019-05-18 13:42] LABS: BE 1.7 mmol/L (-2 to +3); pH 7.456 (7.340-7.450)
[2019-05-18 16:56] VITALS: BP 104/52
[2019-05-18 20:10] VITALS: BP 108/69
[2019-05-19 00:09] VITALS: BP 137/60
[2019-05-19 04:11] VITALS: BP 105/58
[2019-05-19 05:04] LABS: HEMATOCRIT 32.2 % (42.0-52.0); HEMOGLOBIN 10.1 gm/dL (14.0-18.0); MCH 25.2 pg (26.0-34.0); MCHC 31.3 g/dL (28.0-37.0); MCV 80.4 fL (80.0-100.0); MPV 9.2 fl. (7.2-11.1); RBC 4.01 mil/uL (4.50-6.00); RDW-CV 16.5 % (10.5-14.5); WBC 5.9 thou/uL (4.0-11.0)
[2019-05-19 05:11] LABS: CALCIUM 8.2 mg/dL (8.5-10.1); CREATININE 1.2 mg/dL (0.6-1.3); MAGNESIUM 1.7 mg/dL (1.8-2.4); POTASSIUM 3.7 mmol/L (3.5-5.1)
[2019-05-19 08:30] VITALS: BP 162/72
[2019-05-19 13:02] VITALS: BP 140/51
[2019-05-19 15:55] VITALS: BP 164/62
[2019-05-19 20:05] VITALS: BP 154/75
[2019-05-20] VITALS: BP 133/59
[2019-05-20] MEDS ORDERED: MUCINEX600 MG PO (08:28)
[2019-05-20] MEDS ORDERED: AUGMENTIN 875-1 EACH PO (08:28)
--- NOTE | 2019-05-20 10:14 | EKG ---
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: JY : 1945 Requested By: Lamont Seymour Order Number: [id number] MD: René Gusman Measurements Intervals [place] Rate: 110 P: 74 [place]: 139 QRS: 39 QRSD: 75 T: 262 QT: 367 QTc: 497 Interpretive Statements multifocal atrial tachycardia Borderline low voltage, extremity leads Borderline ST depression, anterolateral leads Borderline prolonged QT interval Compared to ECG 05/10/2019 08:51:40 ST (T wave) deviation now present Sinus rhythm no longer present Electronically Signed On 05-20-2019 10:12:59 CDT by René Gusman [email or web address] <ELECTRONICALLY SIGNED> By: René Gusman MD, FACC 05/20/19 1012 38 38 René Gusman MD, FACC /EPI
[2019-05-21 00:15] VITALS: BP 139/47
[2019-05-21 07:58] VITALS: BP 157/72
[2019-05-21 12:07] LABS: ADENOVIRUS Negative (Negative); INFLUENZA A Negative (Negative); INFLUENZA B Negative (Negative); METAPNEUMOVIRUS Negative (Negative); PARAINFLUENZA 1 Negative (Negative); PARAINFLUENZA 2 Negative (Negative); PARAINFLUENZA 3 Negative (Negative); RHINOVIRUS Negative (Negative); RSV A Negative (Negative); RSV B Negative (Negative)
[2019-05-21 12:42] VITALS: BP 157/76
[2019-05-21 16:00] VITALS: BP 131/50
[2019-05-21 20:00] VITALS: BP 137/66
[2019-05-22] VITALS: BP 118/70
[2019-05-22 07:14] VITALS: BP 155/52
[2019-05-22 08:04] VITALS: BP 155/52
== END 2019-05-22 14:12 | DRG 870 ==
LOC: M.ERS 21:29 → M.2W 23:02 → M.TBA-ER 23:02 → M.ICU 23:02 → M.2W 05-17 18:53
PROVIDERS: Emergency Medicine; Internal Medicine Pulmonary Disease; ADMIT Internal Medicine
PROC: 05HD33Z Insertion of Infusion Device into Right Cephalic Vein, Percutaneous Approach (ICD-10-PCS; principal; 2019-05-09)
PROC: 0BH17EZ Insertion of Endotracheal Airway into Trachea, Via Natural or Artificial Opening (ICD-10-PCS; principal; 2019-05-09)
PROC: 03HY32Z Insertion of Monitoring Device into Upper Artery, Percutaneous Approach (ICD-10-PCS; principal; 2019-05-09)
PROC: 4A133B1 Monitoring of Arterial Pressure, Peripheral, Percutaneous Approach (ICD-10-PCS; principal; 2019-05-09)
PROC: 5A1955Z Respiratory Ventilation, Greater than 96 Consecutive Hours (ICD-10-PCS; principal; 2019-05-09)
PROC: 4A133J1 Monitoring of Arterial Pulse, Peripheral, Percutaneous Approach (ICD-10-PCS; principal; 2019-05-09)
PROC: 30233N1 Transfusion of Nonautologous Red Blood Cells into Peripheral Vein, Percutaneous Approach (ICD-10-PCS; 2019-05-10)
DX: A41.9 Sepsis, unspecified organism (principal); R65.21 Severe sepsis with septic shock; J12.9 Viral pneumonia, unspecified; I50.33 Acute on chronic diastolic (congestive) heart failure; J96.01 Acute respiratory failure with hypoxia; G40.89 Other seizures; G93.1 Anoxic brain damage, not elsewhere classified; N39.0 Urinary tract infection, site not specified; J44.0 Chronic obstructive pulmonary disease with (acute) lower respiratory infection; I13.0 Hypertensive heart and chronic kidney disease with heart failure and stage 1 through stage 4 chronic kidney disease, or unspecified chronic kidney disease; I49.3 Ventricular premature depolarization; N18.3 Chronic kidney disease, stage 3 (moderate); E11.51 Type 2 diabetes mellitus with diabetic peripheral angiopathy without gangrene; E11.649 Type 2 diabetes mellitus with hypoglycemia without coma; E66.9 Obesity, unspecified; E78.5 Hyperlipidemia, unspecified; D50.9 Iron deficiency anemia, unspecified; E11.22 Type 2 diabetes mellitus with diabetic chronic kidney disease; D69.6 Thrombocytopenia, unspecified; Z79.4 Long term (current) use of insulin; Z68.33 Body mass index [BMI] 33.0-33.9, adult; Z88.5 Allergy status to narcotic agent; Z88.2 Allergy status to sulfonamides; Z03.818 Encounter for observation for suspected exposure to other biological agents ruled out; Z79.899 Other long term (current) drug therapy

== ENCOUNTER 2019-05-27 03:36 | Inpatient (IN) | payer OTHER, MEDICARE ==
[~2019-05-27] VITALS: Ht 177.8 cm; Wt 105.2 kg
[2019-05-27] VITALS (21 sets, daily range): BP systolic 99–180; BP diastolic 43–80
--- NOTE | ~2019-05-27 | CON ---
[address] [address] CONSULTATION Name: LEONIDAS MERCADO Room: [address] IN M.R.#: [id number] Admission: 05/27/19 Attend Phys: Toshia Snell Discharge: Date of : 41 Report #: [id number] THIS REPORT FOR: //name// cc: Shirley Hoover Maggie M. DO THIS REPORT FOR: //name// CC: Toshia Orozco DATE OF SERVICE: 05/28/2019 REASON FOR CONSULT: Blood in the NG tube. HISTORY OF PRESENT ILLNESS: This is a 73-year-old male who presented to hospital with respiratory failure. The patient had testing for COVID-19 as he had bilateral infiltrate at the bases of his lungs. This test was negative. The patient also had developed deep vein thrombosis involving the right popliteal and posterior tibial veins immediately proximal to the amputation level. The patient currently is sedated. The nurse had reported that there was a blood aspirate in the NG tube. PAST MEDICAL HISTORY: Significant for history of acute renal failure, anemia, COPD, respiratory failure, UTIs, electrolyte imbalance, hyperlipidemia, diabetes, gastroesophageal reflux disease, obesity, history of uvulectomy, peripheral vascular disease. ALLERGIES: SIGNIFICANT TO PERCOCET, OXYCODONE AND SULFA. MEDICATIONS: Please refer to MAR. SOCIAL HISTORY: The patient is currently in the hospital, intubated. He has history of tobaccoism, but no alcohol use. FAMILY HISTORY: Significant for coronary artery disease and hypertension. PHYSICAL EXAMINATION: VITAL SIGNS: Reveals blood pressure of 129/56, respirations 14, pulse 61, temperature is 97.5. LUNGS: Clear. CARDIOVASCULAR: Regular. ABDOMEN: Soft. Bowel sounds are diminished. Note, the patient [place] [address] CONSULTATION Name: LEONIDAS MERCADO Room: [address]#: [id number] Admission: 05/27/19 Attend Phys: Toshia Snell Discharge: Date of : 41 Report #: [id number] LABORATORY DATA: Reveal sodium of 143, potassium 3.9, BUN is 24, creatinine 1.5, glucose 153, lipase 341, ALT is 25, AST 29, alkaline phosphatase 82, albumin 2.3. Folic, iron and B12 are all low. INR is 1.3. WBC 3.6 with hemoglobin of 9.2 and platelet of 69. ASSESSMENT AND PLAN: The patient with history of respiratory failure and deep vein thrombosis who has blood in NG tube. We will consider upper scope to further evaluate him for upper GI bleed. We will make further recommendation based on finding. Meanwhile, the patient is on PPI, which we will continue. I will make further recommendation based on finding. By: 1530 [id number] Solano MD /vidhi
[~2019-05-27 03:36] MED LIST changes: +LOPRESSOR25 PO; +MUCINEX600 MG PO
[2019-05-27 04:36] LABS: URINE BILIRUBIN NEGATIVE (Negative); URINE BLOOD TRACE (Negative); URINE CLARITY CLEAR; URINE COLOR YELLOW; URINE GLUCOSE-RANDOM NEGATIVE (Negative); URINE KETONES NEGATIVE (Negative); URINE LEUKOCYTES-REFLEX 1+ (Negative); URINE NITRITE-REFLEX NEGATIVE (Negative); URINE PROTEIN 1+ (Negative); URINE SPECIFIC GRAVITY >= 1.030 (1.005-1.030); URINE UROBILINOGEN 0.2 E.U./dl (0.2-1.0)
[2019-05-27 04:39] LABS: ABSOLUTE EOSINOPHILS 0.1 thou/uL (0.0-0.7); ABSOLUTE LYMPHOCYTES 0.9 thou/uL (0.8-5.3); ABSOLUTE MONOCYTES 0.4 thou/uL (0.0-1.2); ABSOLUTE NEUTROPHILS 5.8 thou/uL (1.6-8.1); BASOPHILS 0.3 %; HEMATOCRIT 30.9 % (42.0-52.0); HEMOGLOBIN 9.9 gm/dL (14.0-18.0); LYMPHOCYTES 12.1 %; MCH 26.8 pg (26.0-34.0); MCHC 32.2 g/dL (28.0-37.0); MCV 83.3 fL (80.0-100.0); MONOCYTES 6.2 %; MPV 10.4 fl. (7.2-11.1); NUCLEATED RBCS 0 /100WBC; PLATELET COUNT* 82 thou/uL (150-400); POLYS 80.4 %; RDW-CV 20.7 % (10.5-14.5); WBC 7.2 thou/uL (4.0-11.0)
[2019-05-27 04:56] LABS: ALBUMIN 2.7 g/dL (3.4-5.0); CREATININE 1.5 mg/dL (0.6-1.3); INR 1.3; MAGNESIUM 1.5 mg/dL (1.8-2.4); POTASSIUM 4.2 mmol/L (3.5-5.1); PROTIME 13.4 Seconds (9.20-11.50); TOTAL BILIRUBIN 0.9 mg/dL (<0.1-1.0); TOTAL PROTEIN 6.5 g/dL (6.4-8.2)
[2019-05-27 05:05] LABS: BACTERIA-REFLEX >30 Many /HPF (None Seen); SQUAMOUS 0-3 Few /LPF (0-3); TRANSITIONAL EPITHEL CELL 0-3 Few /LPF (None Seen); URINE WBC-REFLEX >25 Many /HPF (0-5); WBC CLUMPS Moderate (None Seen)
[2019-05-27 05:06] LABS: CRYSTALS None Seen /LPF (None Seen); FINE GRANULAR CASTS 0-3 Few /LPF (None Seen); HYALINE CASTS 0-3 Few /LPF (None Seen); MUCUS 4-6 Moderate strn/LPF (None Seen)
[2019-05-27 06:11] LABS: BE 0.3 mmol/L (-2 to +3); PO2 114.5 mmHg (75.0-100.0); pH 7.318 (7.340-7.450)
[2019-05-27 06:13] LABS: PCO2 53.7 mmHg (35.0-45.0)
[2019-05-27 08:38] LABS: ANISOCYTOSIS 2+; PLATELET ESTIMATE DECREASED
[2019-05-27 08:49] LABS: CALCIUM 7.1 mg/dL (8.5-10.1); CREATININE 1.5 mg/dL (0.6-1.3)
[2019-05-27 12:59] LABS: BE 1.3 mmol/L (-2 to +3); PCO2 48.2 mmHg (35.0-45.0); PO2 66.1 mmHg (75.0-100.0); pH 7.366 (7.340-7.450)
--- NOTE | 2019-05-27 17:37 | NUR ---
PT VSS, SEDATED ON VENT., SA WITH PACS AND PVCS ON TELE, NO COMPLICATIONS WITH VENTILATION- BLOOD GAS LEVELS IMPROVING, ORAL CARE GIVEN, Q2H TURNS COMPLETED, PROPOFOL AT 30MCG/KG/MIN, D5W INFUSING AT 75ML/HR., HERNANDEZ CATHETER IN PLACE, COVID 19 RULE OUT/ISOLATION
[2019-05-28] VITALS (23 sets, daily range): BP systolic 107–138; BP diastolic 45–90
[2019-05-28 03:45] LABS: ABSOLUTE EOSINOPHILS 0.1 thou/uL (0.0-0.7); ABSOLUTE LYMPHOCYTES 0.5 thou/uL (0.8-5.3); ABSOLUTE MONOCYTES 0.3 thou/uL (0.0-1.2); ABSOLUTE NEUTROPHILS 2.7 thou/uL (1.6-8.1); BASOPHILS 0.5 %; EOSINOPHILS 2.7 %; HEMATOCRIT 29.2 % (42.0-52.0); LYMPHOCYTES 13.9 %; MCH 26.3 pg (26.0-34.0); MCHC 30.9 g/dL (28.0-37.0); MCV 85.3 fL (80.0-100.0); MONOCYTES 7.3 %; NUCLEATED RBCS 0 /100WBC; PLATELET COUNT* 69 thou/uL (150-400); POLYS 75.6 %; RBC 3.42 mil/uL (4.50-6.00); RDW-CV 21.4 % (10.5-14.5); WBC 3.6 thou/uL (4.0-11.0)
[2019-05-28 04:09] LABS: ALBUMIN 2.3 g/dL (3.4-5.0); CALCIUM 7.9 mg/dL (8.5-10.1); CREATININE 1.6 mg/dL (0.6-1.3); POTASSIUM 3.5 mmol/L (3.5-5.1); TOTAL BILIRUBIN 0.9 mg/dL (<0.1-1.0); TOTAL PROTEIN 5.7 g/dL (6.4-8.2)
--- NOTE | 2019-05-28 05:45 | NUR ---
Pt sedated on 30 mcg propofol. VSS. Small to moderate amount thick reilly sputum suctioned via ET tube intermittently. COVID test results came back negative; notified Dr. Flynn, no orders received to discontinue COVID-19 precautions. Will continue to monitor.
[2019-05-28 06:12] LABS: OVALOCYTES 1+; PLATELET ESTIMATE DECREASED
[2019-05-28 06:13] LABS: ANISOCYTOSIS 1+; LARGE PLATELETS RARE; POIKILOCYTOSIS 1+; POLYCHROMASIA 1+
[2019-05-28 12:23] LABS: HEMATOCRIT 28.9 % (42.0-52.0); HEMOGLOBIN 9.1 gm/dL (14.0-18.0)
--- NOTE | 2019-05-28 13:34 | NUR ---
ICU rounds: Pt on vent. Covid negative. DVT, possible PE, plan CT later today. CM spoke with via phone. Per , she does not believe that Pt was doing well at SNF, states that Pt always seemed SOA. Pt discharged to skilled on 05/22/19. Prior to previous hospital stay, Pt resided home with . Independent. Pt had a walker and cane that he can use for mobility. Right leg prothesis. No o2. No hx of HH. unsure of dispo for Pt at this time. Per , plan is for her DIL, Blanca, to be the spokesperson for Pt, since Blanca is a nurse. Following.
--- NOTE | 2019-05-28 17:34 | NUR ---
PT REMAINS INTUBATED PER ORDERED SETTINGS.SEDATED WITH PROPOFOL PER TITRATION PROTOCOL.PT RESPONDS TO PAIN AND TOUCH AND BECAME RESTLESS THIS EVENING.OG SECURE AND PATENT WITH LIS.RED/MAROON COLORED DRAINAGE IN OG-PHYSICIAN NOTIFIED WITH NEW ORDERS RECIEVED.PT TO HAVE EGD IN THE AM AT BEDSIDE. LOVENOX ON HOLD. COVID NEGATIVE-DROPLET ISOLATION MAINTAINED PER PHYSICIAN ORDERS.Q2 HOUR POSITION CHANGES.WILL CONTINUE TO MONITOR FOR DURATION OF SHIFT.
[2019-05-29] VITALS (26 sets, daily range): BP systolic 106–172; BP diastolic 51–103
[2019-05-29 01:09] LABS: HEMATOCRIT 28.7 % (42.0-52.0); HEMOGLOBIN 9.1 gm/dL (14.0-18.0)
--- NOTE | 2019-05-29 03:29 | NUR ---
Pt remains on ventilator; propofol gtt for sedation. Small amount of bloody drainage noted from OG after turning pt to Lt side after 2200. Turned suction off, then placed back on intermittent suction at MN and 0200. Small amount of bloody drainage at MN, but none noted at 0200. Suction off otherwise. VSS. Will continue to monitor.
[2019-05-29 05:26] LABS: BE 0.5 mmol/L (-2 to +3); PCO2 35.8 mmHg (35.0-45.0); PO2 82.5 mmHg (75.0-100.0)
[2019-05-29 09:39] LABS: HEMATOCRIT 29.2 % (42.0-52.0); HEMOGLOBIN 9.2 gm/dL (14.0-18.0)
[2019-05-29 10:53] LABS: ALBUMIN 2.3 g/dL (3.4-5.0); CREATININE 1.5 mg/dL (0.6-1.3); POTASSIUM 3.9 mmol/L (3.5-5.1); TOTAL BILIRUBIN 0.7 mg/dL (<0.1-1.0); TOTAL PROTEIN 5.5 g/dL (6.4-8.2)
--- NOTE | 2019-05-29 15:01 | NUR ---
ICU rounds: Possible PE, started on Lovenox. EGD today. Possible CTA later
--- NOTE | 2019-05-29 18:26 | NUR ---
PT VSS, SEDATED ON VENT, SR TO SA ON TELE, EGD PERFORMED- IRRITATION BUT NO ACTIVE BLEEDING APPARENT, RESUME LOVENOX FOR DVT, PROTONIX DRIP STOPPED- IV BID, ORAL CARE PERFORMED, Q2H TURNS, HERNANDEZ, OG TUBE
[2019-05-30] VITALS (23 sets, daily range): BP systolic 104–142; BP diastolic 32–71
[2019-05-30 04:06] LABS: ALBUMIN 2.2 g/dL (3.4-5.0); CALCIUM 7.8 mg/dL (8.5-10.1); CREATININE 1.5 mg/dL (0.6-1.3); POTASSIUM 3.6 mmol/L (3.5-5.1); TOTAL BILIRUBIN 0.8 mg/dL (<0.1-1.0); TOTAL PROTEIN 5.6 g/dL (6.4-8.2)
--- NOTE | 2019-05-30 06:48 | NUR ---
ASSUMED PATIENT CARE AT 1900. ASSESSMENT COMPLETED CHARTED. PATIENT IS SR/SA WITH PVCS. PATIENT TURNED Q2, BED BATH GIVEN. DROPLET ISOLATION MAINTAINED. POSSIBLE WEANING TRIAL THIS AM. WILL CONTINUE TO MONITOR. CLWR.
--- NOTE | 2019-05-30 16:14 | NUR ---
PT REMAINS INTUBATED PER ORDERED SETTINGS.PLANS ARE TO REMAIN ON PRESSURE SUPPORT FROM 1115 THROUGH THE NIGHT WITH POSSIBLE EXTUBATION TOMORROW.SEDATED WITH PRECEDEX PER PROTOCOL.ECHO COMPLETED.Q2 HOUR POSITION CHANGES.WILL CONTINUE TO MONITOR FOR DURATION OF SHIFT.
[2019-05-30 16:18] LABS: PCO2 VENOUS 42.8 mmHg (41.0-51.0)
--- NOTE | 2019-05-30 16:46 | 2DMMODE ---
[place] [address] 2 D/M-MODE ECHOCARDIOGRAM Name: LEONIDAS MERCADO Room: [address] IN M.R.#: [id number] Admission: 05/27/19 Attend Phys: Toshia escamilla Sa Discharge: Date of : 41 Date of Service: 05/30/19 1644 Report #: [id number] THIS REPORT FOR: cc: Shirley Hoover Maggie M. DO Liston, Michael J. MD [facility] ~ APPROVED REPORT Study performed: 05/30/2019 15:26:56 EXAM: Comprehensive 2D, Doppler, and color-flow Echocardiogram BSA: 2.28 HR: 57 bpm BP: 136/57 mmHg Other Information Study Quality: Good Indications Pulmonary Embolism 2D Dimensions IVSd: 12.31 (7-11mm) LVOT Diam: 30.29 (18-24mm) LVDd: 41.89 mm PWd: 11.31 (7-11mm) Ascending Ao: 32.09 (22-36mm) LVDs: 28.53 (25-40mm) Aortic Root: 30.52 mm Volumes Left Atrial Volume (Systole) LA ESV Index: 37.70 mL/m2 Aortic Valve AoV Peak Isidoro.: 1.24 m/s AO Peak Gr.: 6.12 mmHg LVOT Max P.67 mmHg AO Mean Gr.: 3.19 mmHg LVOT Mean P.01 mmHg LVOT Max V: 1.08 m/s AO V2 VTI: 26.45 cm LVOT Mean V: 0.64 m/s DAHIANA (VTI): 6.47 cm2 LVOT V1 VTI: 23.76 cm Mitral Valve E/A Ratio: 0.73 MV Decel. Time: 397.81 [place] [address] 2 D/M-MODE ECHOCARDIOGRAM Name: LEONIDAS MERCADO Room: [address] IN .R.#: [id number] Admission: 05/27/19 Attend Phys: Toshia escamilla Sa Discharge: Date of : 41 Date of Service: 05/30/19 1644 Report #: [id number] MV E Max Isidoro.: 0.58 m/s MV PHT: 115.37 ms MVA (PHT): 1.91 cm2 TDI E/Lateral E': 9.67 E/Medial E': 9.67 Medial E' Isidoro.: 0.06 m/s Lateral E' Isidoro.: 0.06 m/s Pulmonary Valve PV Peak Isidoro.: 1.00 m/s PV Peak Gr.: 4.03 mmHg Tricuspid Valve RAP Estimate: 5.00 mmHg TR Peak Gr.: 37.65 mmHg RVSP: 42.65 mmHg PA Pressure: 42.65 mmHg Left Ventricle The left ventricle is normal size. There is normal LV segmental wall motion. There is normal left ventricular wall thickness. Left ventricular systolic function is normal. LVEF is 65%. Grade I - abnormal relaxation pattern. Right Ventricle Right ventricle is moderately dilated. The right ventricular systolic function is normal. Atria Left atrium is mildly dilated. Interatrial septum not well visualized. The right atrium size is normal. Aortic Valve The Aortic valve is sclerotic. No aortic regurgitation is present. There is no aortic valvular stenosis. Mitral Valve There is mitral annular calcification. There is no mitral valve regurgitation noted. Mild mitral stenosis. Tricuspid Valve The tricuspid valve is normal in structure. Trace tricuspid regurgitation. The RVSP is 40-45 mmHg. Pulmonic Valve The pulmonary valve is normal in structure. There is no pulmonic [place] [address] 2 D/M-MODE ECHOCARDIOGRAM Name: LEONIDAS MERCADO Room: [address] IN [facility]#: [id number] Admission: 05/27/19 Attend Phys: Toshia escamilla Sa Discharge: Date of : 41 Date of Service: 05/30/19 1644 Report #: [id number] Great Vessels The aortic root is normal in size. IVC is not visualized. Pericardium There is no pericardial effusion. <Conclusion> The left ventricle is normal size. There is normal left ventricular wall thickness. Left ventricular systolic function is normal. LVEF is 65%. Grade I - abnormal relaxation pattern. Left atrium is mildly dilated. Right ventricle is moderately dilated. The Aortic valve is sclerotic. There is no aortic valvular stenosis. There is mitral annular calcification. Mild mitral stenosis. Trace tricuspid regurgitation. The RVSP is 40-45 mmHg. <ELECTRONICALLY SIGNED> By: Carson Bacon MD, FACC 05/30/19 1644 1644 1644 Carson Bacon MD, FACC /INF
[2019-05-31] VITALS (24 sets, daily range): BP systolic 121–233; BP diastolic 52–125
--- NOTE | 2019-05-31 00:26 | NUR ---
RECEIVED REPORT AND ASSUMED CARE OF THE PATIENT AT 1900. VSS. FULL ASSESSMENT COMPLETED CHARTED. CALL LIGHT AND PERSONAL ITEMS IN REACH. BED IN LOW POSITION AND LOCKED.
[2019-05-31 03:30] LABS: ABSOLUTE EOSINOPHILS 0.1 thou/uL (0.0-0.7); ABSOLUTE LYMPHOCYTES 0.8 thou/uL (0.8-5.3); ABSOLUTE MONOCYTES 0.3 thou/uL (0.0-1.2); ABSOLUTE NEUTROPHILS 1.8 thou/uL (1.6-8.1); BASOPHILS 0.9 %; EOSINOPHILS 1.8 %; HEMATOCRIT 28.3 % (42.0-52.0); LYMPHOCYTES 26.2 %; MCH 26.2 pg (26.0-34.0); MCHC 31.9 g/dL (28.0-37.0); MCV 82.1 fL (80.0-100.0); MONOCYTES 10.6 %; MPV 9.1 fl. (7.2-11.1); NUCLEATED RBCS 0 /100WBC; PLATELET COUNT* 94 thou/uL (150-400); POLYS 60.5 %; RBC 3.44 mil/uL (4.50-6.00); WBC 2.9 thou/uL (4.0-11.0)
[2019-05-31 03:38] LABS: PCO2 VENOUS 33.8 mmHg (41.0-51.0); PO2 VENOUS 146.7 mmHg (35.0-45.0)
[2019-05-31 04:01] LABS: ALBUMIN 2.2 g/dL (3.4-5.0); CALCIUM 8.1 mg/dL (8.5-10.1); CREATININE 1.4 mg/dL (0.6-1.3); POTASSIUM 3.7 mmol/L (3.5-5.1); TOTAL BILIRUBIN 0.7 mg/dL (<0.1-1.0); TOTAL PROTEIN 5.8 g/dL (6.4-8.2)
--- NOTE | 2019-05-31 11:31 | NUR ---
Nutrition: Recommend Glucerna 1.2 @ goal rate 65mL/hr. Free water 150cc QID. See RD Assessment Form for details.
--- NOTE | 2019-05-31 12:22 | EKG ---
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: BRYANNA : 1945 Requested By: Donna Coker Order Number: [id number] MD: René Gusman Measurements Intervals [place] Rate: 89 P: 17 WV: 135 QRS: 24 QRSD: 91 T: 257 QT: 375 QTc: 457 Interpretive Statements Sinus rhythm with short pr interval Multiple premature complexes, vent & supraven Borderline low voltage, extremity leads Nonspecific T abnrm, anterolateral leads Compared to ECG 05/17/2019 19:39:46 rate slowed Electronically Signed On 05-27-2019 9:14:48 CDT by René Gusman [email or web address] <ELECTRONICALLY SIGNED> By: René Gusman MD, FACC 05/27/19 0914 0337 0337 René Gusman MD, FAC /EPI
[2019-05-31 12:58] LABS: BE 1.3 mmol/L (-2 to +3); PCO2 VENOUS 37.8 mmHg (41.0-51.0); PO2 VENOUS 137.4 mmHg (35.0-45.0)
--- NOTE | 2019-05-31 13:08 | PATH ---
[address] [address] PATHOLOGY RPT PROCEDURE Name: FORD MERCADO Room: [address] IN M.R.#: [id number] Admission: 05/27/19 Date of : 41 Discharge: Report #: [id number] Path Case #: [id number] [facility] Accession Number: [id number] . 01 Material submitted: . duodenum - BIOPSIES OF DUODENUM TO R/O DUODENITIS . 01 Clinical history: . Rule out duodenitis . 02 Diagnosis: Biopsies of duodenum: - Mild nonspecific active duodenitis, negative for granulomas, viral inclusions and dysplasia/adenomatous changes. (FRANCY:vianca; 05/31/2019) MBR 05/31/2019 1038 Local . 02 Electronically signed: . Jose Guadalupe Laird MD, Pathologist NPI- [id number] . 01 Gross description: . The specimen is received in formalin, labeled "Ford Mercado, biopsies of duodenum" and consists of multiple fragments of reilly tissue measuring from 0.2 x 0.2 x 0.2 cm to 0.3 x 0.3 x 0.2 cm which are entirely submitted in A1. ([facility]; 05/30/2019) JFQ/JFQ 05/30/2019 1224 Local . 02 Pathologist provided ICD-10: K29.80 . 02 CPT . [id number] Specimen Comment: A courtesy copy of this report has been sent to [phone] Specimen Comment: [phone], Specimen Comment: Report sent to ,DR ABDULLAHI / DR SAMPSON Performed at: [address], [place], [place] [id number] MD Sanjay Resendez MD Phone: [phone] Performed at: 02 [facility] [address], [place], [place] [id number] MD Jose Guadalupe Laird MD Phone: [phone]
--- NOTE | 2019-05-31 18:53 | NUR ---
RECEIVED REPORT FROM DARVIN RODRIGUEZ. ASSUMED CARE OF PT AROUND 0730. PT CALM AND ALERT THIS AM ON THE VENT. VITALS AND ASSESSMENT COMPLETED CHARTED. AROUND 11AM PT BECAME TACHYCARDIC AND BP ELEVTED. RT AND PULMONARY AT BEDSIDE - IV METOPROLOL GIVEN AND PT SUCTIONED, THICK BUNDY MUCUS PLUG REMOVED. AFTERWARDS PT VITALS RETURNED TO WNL, BUT VENTILATOR SETTINGS RETURNED TO ASSIST/CONTROLLED. PLAN TO TRY WEAN TIRAL AGAIN TOMORROW. HERNANDEZ IN PLACE TO DD. PT DENIED PAIN OR DISCOMFORT THIS SHIFT. TURNED Q2HRS FOR SKIN INTEGRITY. ORAL CARES PERFORMED. PT CURRENTLY RESTING IN BED. FALL PRECAUTIONS IN PLACE.
--- NOTE | 2019-05-31 19:51 | NUR ---
RECEIVED REPORT AND ASSUMED CARE OF THE PATIENT AT 1900. VSS. FULL ASSESSMENT COMPLETED CHARTED. BED LOCKED AND IN LOW POSITION. CALL LIGHT IN REACH.
[2019-06-01] VITALS (24 sets, daily range): BP systolic 135–263; BP diastolic 64–119
[2019-06-01 11:08] LABS: BE 2.4 mmol/L (-2 to +3); PCO2 VENOUS 42.1 mmHg (41.0-51.0); PO2 VENOUS 48.7 mmHg (35.0-45.0)
[2019-06-01 11:13] LABS: ABSOLUTE EOSINOPHILS 0.1 thou/uL (0.0-0.7); ABSOLUTE LYMPHOCYTES 0.9 thou/uL (0.8-5.3); ABSOLUTE MONOCYTES 0.3 thou/uL (0.0-1.2); BASOPHILS 0.8 %; EOSINOPHILS 1.6 %; HEMATOCRIT 29.1 % (42.0-52.0); HEMOGLOBIN 9.1 gm/dL (14.0-18.0); LYMPHOCYTES 27.1 %; MCHC 31.3 g/dL (28.0-37.0); MCV 83.2 fL (80.0-100.0); MONOCYTES 8.9 %; MPV 9.4 fl. (7.2-11.1); NUCLEATED RBCS 0 /100WBC; PLATELET COUNT* 85 thou/uL (150-400); POLYS 61.6 %; RDW-CV 22.4 % (10.5-14.5); WBC 3.2 thou/uL (4.0-11.0)
[2019-06-01 12:32] LABS: ALBUMIN 2.5 g/dL (3.4-5.0); CALCIUM 7.9 mg/dL (8.5-10.1); CREATININE 1.3 mg/dL (0.6-1.3); POTASSIUM 3.8 mmol/L (3.5-5.1); TOTAL BILIRUBIN 0.6 mg/dL (<0.1-1.0); TOTAL PROTEIN 5.7 g/dL (6.4-8.2)
--- NOTE | 2019-06-01 19:47 | NUR ---
PT ALERT, SR TO SA ON TELE, VENTED BUT AWAKE AND ALERT, PT EXTUBATED IN THE AM. PLACED ON BIPAP TO SUPPORT RESPIRATION, O2 SATURATION IN THE LOW 90'S, ORAL CARE CONTINUED, Q6H ACCUCHECKS, HERNANDEZ CATHETER IN PLACE
[2019-06-02] VITALS (35 sets, daily range): BP systolic 68–189; BP diastolic 24–138
[2019-06-02 03:48] LABS: ABSOLUTE LYMPHOCYTES 0.7 thou/uL (0.8-5.3); ABSOLUTE MONOCYTES 0.5 thou/uL (0.0-1.2); ABSOLUTE NEUTROPHILS 3.5 thou/uL (1.6-8.1); BASOPHILS 0.7 %; EOSINOPHILS 0.3 %; HEMATOCRIT 31.6 % (42.0-52.0); LYMPHOCYTES 15.2 %; MCH 26.1 pg (26.0-34.0); MCHC 31.7 g/dL (28.0-37.0); MCV 82.2 fL (80.0-100.0); MONOCYTES 10.4 %; MPV 8.8 fl. (7.2-11.1); NUCLEATED RBCS 0 /100WBC; PLATELET COUNT* 110 thou/uL (150-400); POLYS 73.4 %; RBC 3.84 mil/uL (4.50-6.00); RDW-CV 22.1 % (10.5-14.5); WBC 4.8 thou/uL (4.0-11.0)
[2019-06-02 04:07] LABS: ALBUMIN 2.6 g/dL (3.4-5.0); CALCIUM 8.7 mg/dL (8.5-10.1); CREATININE 1.2 mg/dL (0.6-1.3); POTASSIUM 3.6 mmol/L (3.5-5.1); TOTAL BILIRUBIN 0.6 mg/dL (<0.1-1.0); TOTAL PROTEIN 6.6 g/dL (6.4-8.2)
--- NOTE | 2019-06-02 06:08 | NUR ---
LOW-GRADE FEVER. PT RESTARTED ON METOPROLOL FOR HR CONTROL. PT DID NOT SLEEP MUCH THROUGH THE NIGHT, ANXIOUS AT TIMES. REMAINS ON BIPAP. 1000 CC UOP, NO BM. OTHERWISE UNEVENTFUL NIGHT. Q2 TURNS FOR SKIN INTEGRITY. WILL CONTINUE MONITORING.
[2019-06-02 06:23] LABS: OVALOCYTES 2+
[2019-06-02 06:24] LABS: ANISOCYTOSIS 2+
--- NOTE | 2019-06-02 10:41 | NUR ---
NG PLACEMENT ATTEMPTED, EVEN BY DR NOGUERA BUT NO SUCCESS.
--- NOTE | 2019-06-02 17:44 | NUR ---
PT ALERT BUT ORIENTED TO PERSON ONLY, REORIENTED FREQUENTLY. TRIED BEDSIDE SWALLOW, FAILED. ST EVALUATION DONE, OKAY FOR HIM TO HAVE HONEY THICKENED LIQUID WITH PILLS CRUSHED. O2 SUPPORT WITH VENTI MASK 50% FOR 7-8 HRS DURING THE DAY. COMPLETE BED BATH GIVEN. Q2 TURNS AND ORAL CARE PROVIDED.
[2019-06-03] VITALS (23 sets, daily range): BP systolic 114–194; BP diastolic 66–160
[2019-06-03 04:35] LABS: ABSOLUTE EOSINOPHILS 0.1 thou/uL (0.0-0.7); ABSOLUTE LYMPHOCYTES 0.9 thou/uL (0.8-5.3); ABSOLUTE MONOCYTES 0.4 thou/uL (0.0-1.2); ABSOLUTE NEUTROPHILS 2.4 thou/uL (1.6-8.1); BASOPHILS 0.7 %; EOSINOPHILS 1.7 %; HEMATOCRIT 32.5 % (42.0-52.0); HEMOGLOBIN 10.3 gm/dL (14.0-18.0); LYMPHOCYTES 23.4 %; MCH 25.9 pg (26.0-34.0); MCHC 31.7 g/dL (28.0-37.0); MCV 81.6 fL (80.0-100.0); MONOCYTES 9.9 %; MPV 8.7 fl. (7.2-11.1); NUCLEATED RBCS 0 /100WBC; PLATELET COUNT* 109 thou/uL (150-400); POLYS 64.3 %; RBC 3.98 mil/uL (4.50-6.00); RDW-CV 21.7 % (10.5-14.5); WBC 3.7 thou/uL (4.0-11.0)
--- NOTE | 2019-06-03 04:52 | NUR ---
VITALS STABLE, AFEBRILE. PT DIDN'T GET MUCH SLEEP THROUGH THE NIGHT. DENIES PAIN, COUGHS FREQUENTLY. REMAINS ON BIPAP. 600CC UOP, BMX1, LARGE AND SOFT. NO ACUTE CLINICAL CHANGES OTHERWISE. BED ALARM ON. WILL CONTINUE MONITORING.
[2019-06-03 04:56] LABS: ALBUMIN 2.8 g/dL (3.4-5.0); CALCIUM 8.9 mg/dL (8.5-10.1); CREATININE 1.2 mg/dL (0.6-1.3); POTASSIUM 3.7 mmol/L (3.5-5.1); TOTAL BILIRUBIN 0.8 mg/dL (<0.1-1.0); TOTAL PROTEIN 6.7 g/dL (6.4-8.2)
[2019-06-03 06:20] LABS: ANISOCYTOSIS 1+; MICROCYTES 2+; PLATELET ESTIMATE DECREASED; TOXIC GRANULATION 1+
[2019-06-03 06:22] LABS: HYPOCHROMASIA 1+
--- NOTE | 2019-06-03 10:37 | NUR ---
SW spoke with ICU nurse for rounds: Pt remains with ICU status, needs bipap at times, awake and alert but delirius. SW to continue to follow to assist with safe dc planning needs.
--- NOTE | 2019-06-03 10:59 | EKG ---
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 : 1945 Requested By: Ofelia Hutton Order Number: [id number] MD: Giorgi Adame Measurements Intervals [place] Rate: 83 P: -3 NC: 133 QRS: 47 QRSD: 98 T: 42 QT: 373 QTc: 439 Interpretive Statements Sinus rhythm Multiform ventricular premature complexes Borderline low voltage, extremity leads Compared to ECG 05/27/2019 03:37:41 Ventricular premature complex(es) now present Short NC interval no longer present Electronically Signed On 06-03-2019 10:57:51 CDT by Giorgi Adame [email or web address] <ELECTRONICALLY SIGNED> By: Giorgi Adame MD, FACC 06/03/19 1057 1329 1329 Giorgi Adame MD, FAC /EPI
--- NOTE | 2019-06-03 18:30 | NUR ---
REORIENTATION PROVIDED FREQUENTLY. VSS. O2 SUPPORT WITH HIGH FLOW NC 8L/MIN. PT UNDERWENT VIDEO SWALLOW AT BEDSIDE. PER ST, HE CAN HAVE THIN LIQUIDS AND MECH. CHOPPED DIET. HE HAD TWO APPLE JUICES, FED SLOWLY, COUGHS AT TIMES. NG PLACEMENT HELD FOR TODAY. PT WHEEZY, LASIX GIVEN ONCE THIS AM. COMPLETE BATH GIVEN. Q2 TURNS AND ORAL CARE DONE.
[2019-06-04] VITALS (26 sets, daily range): BP systolic 144–207; BP diastolic 59–144
[2019-06-04 04:04] LABS: ABSOLUTE LYMPHOCYTES 0.5 thou/uL (0.8-5.3); ABSOLUTE MONOCYTES 0.1 thou/uL (0.0-1.2); ABSOLUTE NEUTROPHILS 1.7 thou/uL (1.6-8.1); BASOPHILS 0.3 %; EOSINOPHILS 0.6 %; HEMATOCRIT 31.3 % (42.0-52.0); MCH 26.1 pg (26.0-34.0); MCHC 31.9 g/dL (28.0-37.0); MCV 81.6 fL (80.0-100.0); MONOCYTES 5.8 %; MPV 8.8 fl. (7.2-11.1); NUCLEATED RBCS 0 /100WBC; PLATELET COUNT* 102 thou/uL (150-400); POLYS 72.3 %; RBC 3.84 mil/uL (4.50-6.00); WBC 2.4 thou/uL (4.0-11.0)
[2019-06-04 04:51] LABS: ALBUMIN 2.7 g/dL (3.4-5.0); CALCIUM 8.6 mg/dL (8.5-10.1); CREATININE 1.2 mg/dL (0.6-1.3); POTASSIUM 3.8 mmol/L (3.5-5.1); TOTAL BILIRUBIN 0.8 mg/dL (<0.1-1.0); TOTAL PROTEIN 6.4 g/dL (6.4-8.2)
[2019-06-04 05:48] LABS: OVALOCYTES 2+; PLATELET ESTIMATE DECREASED
[2019-06-04 05:49] LABS: ANISOCYTOSIS 1+; POIKILOCYTOSIS 2+; POLYCHROMASIA Occasional
--- NOTE | 2019-06-04 06:16 | NUR ---
Pt confused but cooperative usually. Was not cooperative with last turn this am, though not combative. Oriented to self only. Impulsive at times; had leg hanging over rail on two occasions overnight. Would say he needs to urinate; reminded that he had warner. BP elevated at times; dmitriy. DBP, which was 80s-100s. On BIPAP since 2329. Pulls at mask at times, pulled tubing apart twice overnight. Lorazepam given twice; see MAR. Pt currently appears calm with eyes closed. Minimal po intake overnight, which amounted to 3 bites of applesauce with meds. Will continue to monitor.
--- NOTE | 2019-06-04 10:42 | NUR ---
NGT PLACEMENT ATTEMPTED BY DR NOGUERA AND JENNIFER MCDERMOTT AT BEDSIDE, UNSUCCESSFUL. PT TO BE TAKEN TO IR LATER. DROPLET PRECAUTIONS TO BE DC'd PER DR TSAI.
--- NOTE | 2019-06-04 12:08 | NUR ---
SW spoke with pt nurse for ICU rounds: Pt remains confused and not oriented. Trying to place NG Tube today. SW/CM to continue to follow to assist with safe dc planning.
--- NOTE | 2019-06-04 18:10 | NUR ---
PT TOLERATING ORAL FEEDS, COUGHS AT TIMES BUT SWALLOWS GOOD. ASPIRATION PRECAUTIONS TAKEN. ATE AN APPLE SAUCE, MILK AND ENSURE TODAY. FAMILY UPDATED. PT IMPULSIVE AND TRIES TO GET OUT OF BED. ATIVAN GIVEN ONCE THIS SHIFT. MENTATION IMPROVED SLIGHTLY COMPARED TO THE PREVIOUS DAY. REORIENTATION PROVIDED FREQUENTLY. Q2 TURNS AND ORAL CARE DONE. WORKED WITH PT AND SAT AT THE EDGE OF THE BED FOR FEW MINUTES, 2 PERSON ASSIST.
[2019-06-05] VITALS (24 sets, daily range): BP systolic 152–218; BP diastolic 65–112
--- NOTE | 2019-06-05 01:37 | NUR ---
RECEIVED REPORT AND ASSUMED CARE OF PATIENT AT 1900. FULL ASSESSMENT COMPLETED CHARTED. PT IS ALERT TO PERSON AND TIME & FORGETS LIMITATIONS. CALL LIGHT AND PERSONAL ITEMS IN REACH. BED LOCKED AND IN LOW POSITION.
[2019-06-05 04:22] LABS: ABSOLUTE LYMPHOCYTES 0.8 thou/uL (0.8-5.3); ABSOLUTE MONOCYTES 0.3 thou/uL (0.0-1.2); ABSOLUTE NEUTROPHILS 2.4 thou/uL (1.6-8.1); BASOPHILS 0.7 %; EOSINOPHILS 1.2 %; HEMATOCRIT 34.1 % (42.0-52.0); HEMOGLOBIN 10.6 gm/dL (14.0-18.0); LYMPHOCYTES 23.1 %; MCH 25.6 pg (26.0-34.0); MCV 82.7 fL (80.0-100.0); MONOCYTES 7.1 %; MPV 9.1 fl. (7.2-11.1); NUCLEATED RBCS 0 /100WBC; PLATELET COUNT* 106 thou/uL (150-400); POLYS 67.9 %; RBC 4.12 mil/uL (4.50-6.00); RDW-CV 20.7 % (10.5-14.5); WBC 3.5 thou/uL (4.0-11.0)
[2019-06-05 04:36] LABS: ALBUMIN 2.9 g/dL (3.4-5.0); CALCIUM 8.6 mg/dL (8.5-10.1); CREATININE 1.2 mg/dL (0.6-1.3); POTASSIUM 3.9 mmol/L (3.5-5.1); TOTAL BILIRUBIN 0.7 mg/dL (<0.1-1.0); TOTAL PROTEIN 6.7 g/dL (6.4-8.2)
--- NOTE | 2019-06-05 14:19 | NUR ---
PATIENT REMAINS ALERT TO SELF, SOMETIMES TIME AND PLACE BUT MOST OF THE TIME CONFUSED WITH FORGETFULNESS. WHEN PAITENT IS ST ON THE MONITOR IT IS NOTED THAT THE PATIENT IS ALSO TACHYPNIC AND HAS INCREASED EFFORT IN BREATHING. WHEEZES NOTED. PAITENT REMAINS ON 7L HIGH FLOW NASAL CANNULA, SATS 94-99%. PATIENT'S CALLED AND SHE WAS UPDATED ON PATIENT. ORDERS RECEIVED TO TRANSFER PATIENT, AWAITING BED. NO FURTHER CONCERNS AT THIS TIME. WILL CONTINUE TO MONITOR AND CARE PER PLAN OF CARE.
--- NOTE | 2019-06-05 15:42 | NUR ---
SW spoke with pt nurse for ICU rounds who explained that pt is a little more alert but still confused. SW called pt Varsha to provide update of dc plan towards possible inpt rehab; pt was pleased to learn about possible inpt rehab because pt was leary of a SNF placement at this time. Pt expressed concern with pt ability to eat or have enough nutrition prior to rehab. SW to continue to follow to assist with safe dc planning.
[2019-06-06] VITALS (11 sets, daily range): BP systolic 118–178; BP diastolic 71–88
--- NOTE | 2019-06-06 01:29 | NUR ---
RECEIVED REPORT AND ASSUMED CARE OF PATIENT AT 1900. VSS. FULL ASSESSMENT COMPLETED CHARTED. PERSONAL ITEMS AND CALL LIGHT IN REACH. BED LOW POSITION AND LOCKED.
[2019-06-06 02:13] LABS: HEMATOCRIT 34.5 % (42.0-52.0); HEMOGLOBIN 10.8 gm/dL (14.0-18.0); MCH 25.9 pg (26.0-34.0); MCHC 31.3 g/dL (28.0-37.0); MCV 82.7 fL (80.0-100.0); MPV 9.1 fl. (7.2-11.1); RBC 4.17 mil/uL (4.50-6.00); RDW-CV 21.7 % (10.5-14.5); WBC 4.6 thou/uL (4.0-11.0)
[2019-06-06 02:21] LABS: CALCIUM 8.7 mg/dL (8.5-10.1); CREATININE 1.2 mg/dL (0.6-1.3); MAGNESIUM 1.4 mg/dL (1.8-2.4); POTASSIUM 3.4 mmol/L (3.5-5.1)
--- NOTE | 2019-06-06 10:24 | NUR ---
6891 ASSUMED CARE OF PATIENT. PLEASE SEE DOCUMENTED ASSESSMENT. PT IS TELE STATUS IN THE ICU. PT IS CONFUSED. KNOWS SELF AND THAT HE IS IN HOSPITAL. IMPULSIVE AND PULLS GOWN OFF. SAYS HE IS GOING TO GET UP AND GO TO THE BATHROOM. NEEDS FREQUENT REDIRECTION. ABLE TO FEED SELF.
--- NOTE | 2019-06-06 12:14 | NUR ---
SW spoke with pt nurse for ICU rounds. Pt tele status. Pt remains confused and impulsive. Possibility for inpt rehab at dc; JOSSELYN spoke with pt yesterday about the dc plan and will continue to follow up with pt family as needed.
--- NOTE | 2019-06-06 13:34 | NUR ---
1320 TRANSFERRED TO TELEMETRY IN [facility] WITH OXYGEN ON. ALL BELONGINGS AND RECORDS WITH PATIENT.
--- NOTE | 2019-06-06 14:09 | NUR ---
WORKED WITH OT AND STOOD AT SIDE OF BED TWIDE WITH PROSTHESIS ON
--- NOTE | 2019-06-06 16:28 | NUR ---
PATIENT VERY CONFUSED AND TRYING TO GET OUT OF BED
--- NOTE | 2019-06-06 16:52 | NUR ---
1630 PATIENT WILL NOT LEAVE OXYGEN ON DESPITE FREQUENT REDIRECTION. PT TRIES TO GET OUT OF BED.SOFT WRIST RESTRAINTS APPLIED. DR MCKEON NOTIFIED.
--- NOTE | 2019-06-06 17:07 | NUR ---
PATIENT NOT PROGRESSING TOWARDS GOALS. INCREASINGLY CONFUSED THIS AFTERNOON AND PULLING OFF OXYGEN. UNABLE TO REDIRECT. THREW URINAL ON FLOOR. PLACED IN SOFT RESTRAINTS. DR MCKEON NOTIFIED AND ORDERS RECEIVED. PATIENT TO MOVE TO ROOM 220
--- NOTE | 2019-06-06 17:17 | NUR ---
SPOKE WITH SPOUSE AND DISCUSSED SITUATION WITH HER. TOLD HER OF NEW ROOM
--- NOTE | 2019-06-06 17:36 | NUR ---
RESTRAINTS OFF PATIENT. NURSE IS SITTER. REFUSES MOST OF DINNER. HERNANDEZ OUT AT 1600.
--- NOTE | 2019-06-06 17:46 | NUR ---
REPORT TO YAMEL RODRIGUEZ
--- NOTE | 2019-06-06 18:00 | NUR ---
ICU TRANFER TO 220 TELEPHONE REPORT GIVEN PRIOR TO TRANSFER PATIENT TO VIA BED 1:1 SITTER WITH PATIENT
--- NOTE | 2019-06-06 21:28 | NUR ---
VITALS CHECK. PATIENT O2 SAT CONSISTENTLY DROPPING TO 60%. PATIENT PLACED ON BIPAP AT THIS TIME. PATIENT EXPRESSED HIS DESIRE TO REFUSE BIPAP. WAS UNABLE TO STAY AWAKE TO KEEP REFUSING. O2 SAT INCREASED TO 95% ON BIPAP. SITTER AT BEDSIDE. TM
--- NOTE | 2019-06-06 21:31 | NUR ---
PATIENT'S EVENING MEDS HELD. PATIENT RECIEVED HALDOL ON DAY SHIFT AND IS UNABLE TO STAY AWAKE LONG ENOUGH TO SAFELY SWALLOW ANY MEDICATION. BLOOD GLUCOSE AND BLOOD PRESSURE STABLE AT THIS TIME.
[2019-06-07] VITALS: BP 131/82
[2019-06-07 04:39] VITALS: BP 142/58
--- NOTE | 2019-06-07 06:03 | NUR ---
ASSESSMENT CHARTED. PATIENT RESTED IN BED ASLEEP FROM PREVIOUS HALDOL DOSE UNTIL ABOUT 0230. WHEN PATIENT AWOKE, HE BEGAN PULLING AT BIPAP AND ATTEMPTING TO CLIMB OUT OF BED. PATIENT WAS MORE EASILY REDIRECTED THAN BEFORE BUT STILL RESISTANT TO TREATMENT. REFUSES MEDICATIONS THIS MORNING AND KEEPS TRYING TO CLIMB OUT OF BED. IS ABLE TO BE REDIRECTED. REMOVED 1:1 SITTER OBSERVATION THIS SHIFT. AT THIS TIME, PATIENT DOES NOT NEED CONSTANT OBSERVATION. BED ALARM ON AND FALL PRECAUTIONS IN PLACE. PATIENT IS VOIDING POST CATHETER REMOVAL HOWEVER IS STILL INCONTINENT. VSS. NURSING STAFF LAURA
[2019-06-07 08:53] VITALS: BP 144/69
[2019-06-07 10:25] LABS: HEMATOCRIT 33.9 % (42.0-52.0); HEMOGLOBIN 10.7 gm/dL (14.0-18.0); MCH 25.9 pg (26.0-34.0); MCHC 31.6 g/dL (28.0-37.0); MCV 82.1 fL (80.0-100.0); MPV 9.6 fl. (7.2-11.1); RBC 4.13 mil/uL (4.50-6.00); RDW-CV 21.6 % (10.5-14.5); WBC 4.4 thou/uL (4.0-11.0)
[2019-06-07 10:36] LABS: CALCIUM 8.6 mg/dL (8.5-10.1); CREATININE 1.1 mg/dL (0.6-1.3); MAGNESIUM 1.9 mg/dL (1.8-2.4); POTASSIUM 3.1 mmol/L (3.5-5.1)
[2019-06-07 11:59] VITALS: BP 136/82
--- NOTE | 2019-06-07 12:22 | NUR ---
CM spoke with to inform of criteria needed to qualify for acute rehab. does continue to work outside of the home, so is not able to be available during her work hours. to discuss with family and may possibly be able to pay for an electrical products sales engineer, CM to f/u with on Monday. is hopeful that Pt will qualify for acute rehab. CM following.
[2019-06-07 20:23] VITALS: BP 116/57
[2019-06-08] VITALS (7 sets, daily range): BP systolic 112–161; BP diastolic 52–76
[2019-06-08 05:01] LABS: HEMATOCRIT 28.9 % (42.0-52.0); HEMOGLOBIN 9.3 gm/dL (14.0-18.0); MCH 26.4 pg (26.0-34.0); MCHC 32.2 g/dL (28.0-37.0); MCV 82.1 fL (80.0-100.0); MPV 9.7 fl. (7.2-11.1); RBC 3.53 mil/uL (4.50-6.00); RDW-CV 20.9 % (10.5-14.5); WBC 4.9 thou/uL (4.0-11.0)
--- NOTE | 2019-06-08 05:37 | NUR ---
PT IS ABLE TO COMMUNICATE HIS NEEDS TO STAFF WITH SOME DIFFICULTY; HE IS [id number] AND CONFUSED/ FORGETFUL AT TIMES. HE HAS DENIED THE NEED FOR PAIN MEDICATION UP TO THIS TIME. PT HAD BIPAP ON FOR A SHORT TIME (3-4 HRS) OVERNIGHT; NOT TOLERATED WELL. METFORMIN SHOULD BE ON HOLD FOR TODAY; PT HAD CTA ON 06/06.
[2019-06-08 06:03] LABS: ALBUMIN 2.8 g/dL (3.4-5.0); CALCIUM 7.7 mg/dL (8.5-10.1); CREATININE 1.3 mg/dL (0.6-1.3); POTASSIUM 3.4 mmol/L (3.5-5.1)
--- NOTE | 2019-06-08 10:25 | NUR ---
4866 ASSUMED CARE OF PATIENT. PLEASE SEE DOCUMENTED ASSESSMENT.PT IS ALERT AND ORIENTED X 3.
--- NOTE | 2019-06-08 17:40 | NUR ---
PATIENT HAS PROGRESSED SIGNIFICANTLY. OXYGEN AT 5LPM HIGH FLOW CANNULA. ORIENTED X 4. PATIENT PUT WATCH ON. ABLE TO HELP WITH TURNS. APPETITE IMPROVED. LESS LEFT SHOULDER PAIN. NURSING UPDATED SPOUSE ON PATIENT STATUS. PT ABLE TO SPEAK WITH FAMILY ON PHONE.
[2019-06-09 04:00] VITALS: BP 165/70
--- NOTE | 2019-06-09 05:19 | NUR ---
PT IS ABLE TO COMMUNICATE HIS NEEDS TO STAFF WITH SOME DIFFICULTY; HE IS FORGETFUL AND CONFUSED AT TIMES WELL [id number]. HE HAS DENIED THE NEED FOR PAIN MEDICATION UP TO THIS TIME. PT HAS A NEW BIPAP MASK AND HAS TOLERATED IT MUCH BETTER TONIGHT THAN LAST NIGHT.
[2019-06-09 06:43] LABS: ABSOLUTE MONOCYTES 0.4 thou/uL (0.0-1.2); ABSOLUTE NEUTROPHILS 3.4 thou/uL (1.6-8.1); BASOPHILS 0.3 %; HEMATOCRIT 30.6 % (42.0-52.0); HEMOGLOBIN 9.7 gm/dL (14.0-18.0); LYMPHOCYTES 20.3 %; MCH 26.4 pg (26.0-34.0); MCHC 31.7 g/dL (28.0-37.0); MCV 83.3 fL (80.0-100.0); MONOCYTES 7.5 %; MPV 10.1 fl. (7.2-11.1); NUCLEATED RBCS 0 /100WBC; PLATELET COUNT* 86 thou/uL (150-400); POLYS 70.9 %; RBC 3.67 mil/uL (4.50-6.00); RDW-CV 21.8 % (10.5-14.5); WBC 4.9 thou/uL (4.0-11.0)
[2019-06-09 07:09] LABS: ALBUMIN 2.8 g/dL (3.4-5.0); CALCIUM 7.8 mg/dL (8.5-10.1); CREATININE 1.3 mg/dL (0.6-1.3); POTASSIUM 3.8 mmol/L (3.5-5.1); TOTAL BILIRUBIN 0.7 mg/dL (<0.1-1.0); TOTAL PROTEIN 5.9 g/dL (6.4-8.2)
[2019-06-09 08:59] VITALS: BP 144/80
[2019-06-09 12:02] VITALS: BP 141/69
[2019-06-09 16:00] VITALS: BP 132/55
[2019-06-09 20:00] VITALS: BP 142/59
[2019-06-10] VITALS: BP 147/65
[2019-06-10 04:32] VITALS: BP 150/68
[2019-06-10 04:51] LABS: HEMATOCRIT 32.7 % (42.0-52.0); HEMOGLOBIN 10.5 gm/dL (14.0-18.0); MCH 26.4 pg (26.0-34.0); MCHC 32.2 g/dL (28.0-37.0); MPV 9.7 fl. (7.2-11.1); RBC 3.98 mil/uL (4.50-6.00); RDW-CV 21.8 % (10.5-14.5); WBC 5.4 thou/uL (4.0-11.0)
[2019-06-10 05:32] LABS: ALBUMIN 2.9 g/dL (3.4-5.0); CALCIUM 8.3 mg/dL (8.5-10.1); CREATININE 1.2 mg/dL (0.6-1.3); POTASSIUM 3.6 mmol/L (3.5-5.1)
--- NOTE | 2019-06-10 07:45 | NUR ---
Shift uneventful. Pt is aox4, running SR with PACs/PVCs on telemetry, respirations are even and unlabored on 5L NC. Pt is medically stable at this time.
[2019-06-10 08:00] VITALS: BP 117/44
--- NOTE | 2019-06-10 11:23 | NUR ---
ASSUMED CARE OF PT AAPPROX 0730. REASSESMENT COMPLETED CHARTED. MEDICATIONS GIVEN CHARTED. PT WORKED WITH THERAPY THIS AM, PT UP TO WHEELCHAIR. SAFTEY PRECAUTIONS UTILIZED. HOURLY ROUNDING FOR PT NEEDS. PT D/C ORDERS SENT TO THIS AM, WAITING FOR APPROVAL FOR D/C.
--- NOTE | 2019-06-10 11:34 | NUR ---
Pt medically stable to dc, CM updated medical billing coordinator, liaison to initiate insurance auth. CM to update , once auth received and fax dc orders.
[2019-06-10 12:26] VITALS: BP 131/62
[2019-06-10 16:10] VITALS: BP 131/65
--- NOTE | 2019-06-10 16:16 | NUR ---
Pt discharging to acute rehab today to room 318. Updated pt's and faxed dc orders.
[2019-06-10] MEDS ORDERED: XARELTO15 MG PO (17:48)
--- NOTE | 2019-06-10 18:19 | NUR ---
PT WILL D/C TO REHAB TODAY AFTER SHIFT CHANGE. PLAN DISCUSSED WITH PT, PT VERBALIZED UNDERSTANDING. HOURLY ROUNDED. PT UP TO BEDSIDE CHAIR. CALL LIGHT WITHIN REACH.
--- NOTE | 2019-06-10 19:30 | NUR ---
REPORT GIVEN TO REHAB NURSE. PT TO BE TRANSFERED TO REHAB.
[2019-06-11 06:50] LABS: HEMATOCRIT 31.6 % (42.0-52.0); HEMOGLOBIN 10.1 gm/dL (14.0-18.0); MCH 26.6 pg (26.0-34.0); MCHC 31.9 g/dL (28.0-37.0); MCV 83.2 fL (80.0-100.0); RBC 3.8 mil/uL (4.50-6.00); RDW-CV 21.6 % (10.5-14.5); WBC 5.3 thou/uL (4.0-11.0)
[2019-06-11 07:18] LABS: ALBUMIN 2.7 g/dL (3.4-5.0); CREATININE 1.3 mg/dL (0.6-1.3); POTASSIUM 3.6 mmol/L (3.5-5.1)
== END 2019-06-10 19:30 | DRG 207 ==
LOC: M.ERS 03:36 → M.2W 05:51 → M.TBA-ER 05:51 → M.ICU 05:51 → M.2W 06-06 18:00
PROVIDERS: Emergency Medicine; Internal Medicine; Internal Medicine Pulmonary Disease; ADMIT Family Medicine
PROC: 5A1955Z Respiratory Ventilation, Greater than 96 Consecutive Hours (ICD-10-PCS; 2019-05-27)
PROC: 0BH17EZ Insertion of Endotracheal Airway into Trachea, Via Natural or Artificial Opening (ICD-10-PCS; 2019-05-27)
PROC: 0DB98ZX Excision of Duodenum, Via Natural or Artificial Opening Endoscopic, Diagnostic (ICD-10-PCS; principal; 2019-05-29)
PROC: 5A09357 Assistance with Respiratory Ventilation, Less than 24 Consecutive Hours, Continuous Positive Airway Pressure (ICD-10-PCS; 2019-06-03)
PROC: 5A09357 Assistance with Respiratory Ventilation, Less than 24 Consecutive Hours, Continuous Positive Airway Pressure (ICD-10-PCS; 2019-06-04)
PROC: 5A09357 Assistance with Respiratory Ventilation, Less than 24 Consecutive Hours, Continuous Positive Airway Pressure (ICD-10-PCS; 2019-06-05)
PROC: 5A09357 Assistance with Respiratory Ventilation, Less than 24 Consecutive Hours, Continuous Positive Airway Pressure (ICD-10-PCS; 2019-06-06)
PROC: 5A09357 Assistance with Respiratory Ventilation, Less than 24 Consecutive Hours, Continuous Positive Airway Pressure (ICD-10-PCS; 2019-06-07)
PROC: 5A09357 Assistance with Respiratory Ventilation, Less than 24 Consecutive Hours, Continuous Positive Airway Pressure (ICD-10-PCS; 2019-06-08)
PROC: 5A09357 Assistance with Respiratory Ventilation, Less than 24 Consecutive Hours, Continuous Positive Airway Pressure (ICD-10-PCS; 2019-06-09)
DX: J96.01 Acute respiratory failure with hypoxia (principal); E43 Unspecified severe protein-calorie malnutrition; G93.41 Metabolic encephalopathy; I50.33 Acute on chronic diastolic (congestive) heart failure; K29.71 Gastritis, unspecified, with bleeding; I13.0 Hypertensive heart and chronic kidney disease with heart failure and stage 1 through stage 4 chronic kidney disease, or unspecified chronic kidney disease; E87.0 Hyperosmolality and hypernatremia; N30.01 Acute cystitis with hematuria; E11.22 Type 2 diabetes mellitus with diabetic chronic kidney disease; D64.9 Anemia, unspecified; E66.9 Obesity, unspecified; N18.3 Chronic kidney disease, stage 3 (moderate); I49.3 Ventricular premature depolarization; E11.51 Type 2 diabetes mellitus with diabetic peripheral angiopathy without gangrene; E78.5 Hyperlipidemia, unspecified; E11.65 Type 2 diabetes mellitus with hyperglycemia; Z20.828 Contact with and (suspected) exposure to other viral communicable diseases; D69.6 Thrombocytopenia, unspecified; E83.42 Hypomagnesemia; K44.9 Diaphragmatic hernia without obstruction or gangrene; J44.9 Chronic obstructive pulmonary disease, unspecified; K22.2 Esophageal obstruction; K21.0 Gastro-esophageal reflux disease with esophagitis; Z89.511 Acquired absence of right leg below knee; Z82.49 Family history of ischemic heart disease and other diseases of the circulatory system; Z86.718 Personal history of other venous thrombosis and embolism; Z79.01 Long term (current) use of anticoagulants; Z88.5 Allergy status to narcotic agent; Z88.2 Allergy status to sulfonamides; Z79.84 Long term (current) use of oral hypoglycemic drugs; Z79.4 Long term (current) use of insulin

== ENCOUNTER 2019-06-10 17:41 | Inpatient (IN) | payer OTHER, MEDICARE ==
[~2019-06-10] VITALS: Ht 177.8 cm; Wt 110.7 kg
[2019-06-10] MEDS ORDERED: XARELTO15 MG PO (17:48)
[2019-06-10 21:00] VITALS: BP 116/53
--- NOTE | 2019-06-11 05:09 | NUR ---
PT ARRIVED ONTO UNIT AT 1940. ALERT AND ORIENTED. PLEASANT. O2 6L NC. DENIED ANY PAIN. [place]. 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 NWB RLE UNLESS PROSTHETIC IN PLACE. DOES HAVE OCCASIONAL COUGH. AFEBRILE. USED URINAL BUT DID HAVE URINARY INCONTINENCE WELL. BIPAP AT NIGHT BUT PT DOES NOT LIKE TO WEAR MASK AND ONLY WORE FOR SOME OF THE NIGHT BEFORE TAKING IT OFF AT 0400. RT WAS INFORMED OF THIS. ADMISSION ASSESSMENT WAS COMPLETED. SLEPT OFF AND ON. CALL LIGHT IN REACH AND BED ALARM ON.
[2019-06-11 09:00] VITALS: BP 114/49
--- NOTE | 2019-06-11 12:20 | NUR ---
Nutrition: Pt admitted to rehab. Physician indicated severe PCM - defer. Albumin 2.7, prealb 16.4 - moderately depleted. BG 125-265. Pt is eating well, on CHO, Chopped diet. H/o COPD, DM, CHF, OBE. Wt: 232#. GOAL: gradual wt loss over time, good BG control. Consider mild risk. Will follow weekly.
--- NOTE | 2019-06-11 16:33 | NUR ---
SW called pt to complete initial assessment on inpt rehab unit, discuss dc planning and prepare for team conference tomorrow. Pt has not seen pt in 5 weeks. Pt lived at home with and was alone during the day. 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 Pt expressed that pt ability to be able to dc home depends on level of care needed. Pt has hx with [facility] (4 days). Pt has ABBI, elpidio, jane. Pt discussed not having financial resources to hire someone to care for pt and said she would consider SNF or LTC if needed at dc but also mentioned that finances would be an issue to afford LTC. Goal for home with and pt to be able to manage alone during the day while pt is at work. SW to continue to follow to assist with safe dc planning.
--- NOTE | 2019-06-11 17:57 | NUR ---
ALERT AND ORIENTED X4. UP WITH 2 ASSIST, GAIT BELT AND WALKER. DENIES NEED FOR PAIN MEDICATION. HAS SEVERAL AREAS OF FADING BRUISES. REMAINS ON O2 AT 6L/NC TO KEEP O2 SATS GREATER THAN 90%. HAS PROSTHESIS FOR RIGHT BKA. LUNG SOUNDS DIMINISHED. USES CALL LIGHT WITHIN REACH. FALL PRECAUTIONS IN PLACE. USING BED AND CHAIR ALARM.
[2019-06-11 19:50] VITALS: BP 140/63
--- NOTE | 2019-06-12 05:07 | NUR ---
ASSUMED CARE AT 1920. ALERT AND ORIENTED, PLEASANT. DENIED ANY PAIN. O2 6L NC. BIPAP AT NIGHT. USED URINAL. CALL LIGHT IN REACH AND BED ALARM ON.
[2019-06-12 07:17] LABS: ABSOLUTE EOSINOPHILS 0.1 thou/uL (0.0-0.7); ABSOLUTE LYMPHOCYTES 1.2 thou/uL (0.8-5.3); ABSOLUTE MONOCYTES 0.4 thou/uL (0.0-1.2); ABSOLUTE NEUTROPHILS 2.8 thou/uL (1.6-8.1); BASOPHILS 0.8 %; EOSINOPHILS 2.8 %; HEMATOCRIT 32.4 % (42.0-52.0); HEMOGLOBIN 10.2 gm/dL (14.0-18.0); LYMPHOCYTES 26.5 %; MCH 26.1 pg (26.0-34.0); MCHC 31.4 g/dL (28.0-37.0); MONOCYTES 8.9 %; NUCLEATED RBCS 0 /100WBC; PLATELET COUNT* 86 thou/uL (150-400); RBC 3.91 mil/uL (4.50-6.00); RDW-CV 22.1 % (10.5-14.5); WBC 4.6 thou/uL (4.0-11.0)
[2019-06-12 07:37] LABS: ALBUMIN 2.6 g/dL (3.4-5.0); CREATININE 1.4 mg/dL (0.6-1.3); POTASSIUM 4.1 mmol/L (3.5-5.1); TOTAL BILIRUBIN 0.9 mg/dL (<0.1-1.0); TOTAL PROTEIN 5.8 g/dL (6.4-8.2)
[2019-06-12 08:30] VITALS: BP 127/54
--- NOTE | 2019-06-12 15:13 | NUR ---
Team conference held today. Plan for pt to remain on rehab unit with team to reassess pt length of stay during team conference next Monday. SW called pt to update on team conference summary and plan. Pt understanding and hopeful for pt to make progress in therapies. SW explained possible need for more assistance during the day; pt said she is considering all options and she said that even if pt children and in laws said they could assist with pt care, pt said that they also work during the day so she wasn't sure that would be a fdc or consistent option. Pt said that she might be able to take a couple of weeks off of work to give them more time at dc to determine if pt is able to be home alone at times 2 weeks after dc or if he would ultimately need a placement or hired caregivers. SW to continue to follow to assist with safe dc planning.
--- NOTE | 2019-06-12 18:32 | NUR ---
ALERT AND ORIENTED X4. PLEASANT AND COOPERATIVE WITH STAFF. INCONTINENT X2 OF URINE TODAY. CONTINENT OF BOWEL TODAY. UP WITH 2 ASSIST, GAIT BELT AND WALKER. USES PROSTHESIS TO RIGHT BKA. TITRATED O2 DOWN TO 3L/NC WITH O2 SAT STILL IN 90'S AT THIS TIME. ON MECHANICAL CHOPPED DIET. USES CALL LIGHT WHEN NEEDING ASSIST. FALL PRECAUTIONS IN PLACE. BED ALARM AND CHAIR ALARM USED.
[2019-06-12 19:45] VITALS: BP 112/59
--- NOTE | 2019-06-13 05:04 | NUR ---
ASSUMED CARE AT 1920. ALERT AND ORIENTED. PLEASANT. DENIED ANY PAIN. O2 4L NC. BIPAP AT NIGHT. URINARY INCONTINENCE. REDNESS TO [place]CR[place] AND GROIN AREAS. BARRIER CREAM APPLIED. SLEPT MOST OF THE NIGHT. CALL LIGHT IN REACH. BED ALARM ON.
[2019-06-13 07:00] VITALS: BP 140/67
--- NOTE | 2019-06-13 18:05 | NUR ---
PATIENT RESTING IN CHIAR. PATIENT IS UP WITH MAX ASSIST OF 2 WITH GAIT BELT AND WALKER AND PROSTHETIC. PATIENT DENIES ANY PAIN. PATIENT HAS GOOD APPETITE. PATIENT WORKED WITH THERAPIES TODAY. PATIENT DENIES ANY NEEDS AT THIS TIME. CALL LIGHT WITHIN REACH.
[2019-06-13 19:50] VITALS: BP 112/55
--- NOTE | 2019-06-14 04:09 | NUR ---
ASSUMED CARE OF PT 06/13/19 AT APPROX 1930. PT A&OX4, ON 4L OXYGEN NC - PT REFUSED BIPAP, VSS, PT TURNED Q2H. NO COMPLAINTS THIS SHIFT. ASSESSMENTS AND HOURLY ROUNDINGS COMPLETE, WILL CONTINUE TO MONITOR
[2019-06-14 07:52] VITALS: BP 153/74
--- NOTE | 2019-06-14 18:09 | NUR ---
PATIENT RESTING UP IN CHAIR, EATING DINNER. PATIENT IS UP WITH MAX ASSIST OF 2 FOR TRANSFERS. PATIENT IS INCONTINENT OF BLADDER, BRIEFS CHANGED NEEDED. PATIENT DENIES ANY PAIN. PATIENT WORKED WITH THERAPIES TODAY. PATIENT HAS GOOD APPETITE. PATIENT CONCERNED ABOUT SWALLOWING, STATES HE HAS HISTORY OF BOTOX INJECTIONS FOR HIS SWALLOWING, DR HARDING NOTIFIED AND SWALLOW STUDY ORDERED. PATIENT DENIES ANY NEEDS AT THIS TIME. CALL LIGHT WITHIN REACH.
[2019-06-14 20:34] VITALS: BP 125/56
--- NOTE | 2019-06-15 04:56 | NUR ---
PT SLEPT WELL THIS SHIFT. VSS ON 2L NC. BIPAP @ HS. PT INCONTINENT OF BLADDER. NO BM NOTED THIS SHIFT. MEDS GIVEN PER EMAR. FALL PRECAUTION IN PLACE. CALL LIGHT WITHIN REACH. WILL CONTINUE TO MONITOR.
[2019-06-15 08:00] VITALS: BP 140/59
--- NOTE | 2019-06-15 15:23 | NUR ---
ASSUMED CARE AT 0730. ALERT ORIENTED PLEASANT COOPERATIVE. HX OF RESP FAILURE COPD ON O2 AT 2L/M PER N/C CONTINOUSLY. SEEMS TO BE SLOW WITH PROCESSING NEEDS CUES WITH TRANSFERS. WEARS PROSTHETIC RT. LEG. WORKING WITH O.T. AFTER BREAKFAST FEEDS SELF TAKES MEDS WITHOUT DIFFICULTY. APPETITE GOOD. WEARS PULLUPS FOR INCONTINENCE OF URINE. USES BEDPAN AT SHIFT CHANGE HAD BM LOOSE. DENIES PAIN OR REQUESTS.
[2019-06-15 20:25] VITALS: BP 120/52
--- NOTE | 2019-06-16 06:10 | NUR ---
PT SLEPT OFF AND ON THIS SHIFT. VSS ON 2L. MEDS GIVEN PER EMAR. PT DENIES PAIN N/V THIS SHIFT. BLADDER INCONTINENCE NOTED X1 THIS SHIFT. PT VOIDED VIA URINAL REST OF SHIFT. FALL PRECAUTION IN PLACE. CALL LIGHT WITHIN REACH. HOURLY ROUNDINGS MADE. WILL CONTINUE TO MONITOR.
[2019-06-16 07:30] VITALS: BP 138/62
--- NOTE | 2019-06-16 11:00 | NUR ---
PATIENT ARRIVED IN SPECIALTY BED TO ROOM 321 WITH BELONGINGS. THIS ACCOUNT IS LINKED TO [id number].
--- NOTE | 2019-06-16 17:42 | NUR ---
ASSUMED CARE AT 0730. ALERT AND ORIENTED PLEASANT MOST OF THE TIME. HX OF RESP FAILURE. PTS. TRANSFERS WITH 2 ASSIST G BELT WALKER AND PROSTHETIC. SEEMS TO BE SLOW TO PROCESS CUES OR NURSES QUESTIONS TO HIM. STAFF DID HIS BATH TODAY AND DRESSING. UP IN W/C FOR A GOOD WHILE TODAY USING CALL LIGHT BUT SEEMS TO REQUIRE HELP WITH THINGS HE SHOULD BE ABLE TO DO FOR HIMSELF. INCONTINENT URINE VOIDED X 1 URINAL. PERICARE AND MOISTURE BARRIER APPLIED TO CHEYANNE AREA RECTAL REDNESS. MEDICATED X 2 FOR RT. SHOULDER PAIN WITH LITTLE RELIEF STATED. HOURLY ROUNDING COMPLETED THIS SHIFT.
[2019-06-16 19:30] VITALS: BP 131/54
--- NOTE | 2019-06-17 04:43 | NUR ---
PT SLEPT WELL THIS SHIFT. MEDS GIVEN PER EMAR. TYLENOL GIVEN FOR RT SHOULDER PAIN. ACCU CHECK. INSULIN NOT INDICATED THIS SHIFT. INCONTINENT OF BLADDER. SMEAR BM NOTED THIS SHIFT. FALL PRECAUTION IN PLACE. CALL LIGHT WITHIN REACH. HOURLY ROUNDINGS MADE. WILL CONTINUE TO MONITOR.
[2019-06-17 08:43] VITALS: BP 111/56
--- NOTE | 2019-06-17 16:34 | NUR ---
ASSUMED CARE AT 0730. ALERT TO SELF AND SITUATION KNOWS HES IN HOSPITAL. HX OF RESP FAILURE COPD WEARS O2 AT 2L/M PER N/C CONTINOUSLY. SEEMS TO HAVE ISSUES PROCESSING HIS THOUGHTS. PARTICIPATING IN THERAPIES. WEARS PULLUPS FOR URINE INCONTINENCE. BARRIER CREAM TO PERIRECTAL AREA REDNESS. TRANSFERS WITH 2 PERSON ASSIST G BELT AND PROSTHETIC NEEDS CUES. TEMP 99.4 AFTER LUNCH HAD TEMP AT 2100 LAST NIGHT 99.4. S.T. SAID PT. WAS HAVING DIFFICULTY KEEPING ON TASK WITH HER QUESTIONS TODAY. PLEASANT COOPERATIVE. WILL OBTAIN U/A C AND S CBC ORDERED. TRANSFERRED INTO BED WITH LIFT AFTER COMPLETION OF THERAPIES. TURNED TO L SIDE. L SHOULDER XRAY AT 1610. PT. DIDNT WANT PRN MEDS L SHOULDER PAIN WHEN OFFERED. HOURLY ROUNDING COMPLETED.
[2019-06-17 16:53] LABS: URINE BILIRUBIN NEGATIVE (Negative); URINE BLOOD 1+ (Negative); URINE CLARITY CLOUDY; URINE COLOR YELLOW; URINE GLUCOSE-RANDOM NEGATIVE (Negative); URINE KETONES NEGATIVE (Negative); URINE PROTEIN 1+ (Negative); URINE SPECIFIC GRAVITY 1.025 (1.005-1.030)
[2019-06-17 16:55] LABS: URINE LEUKOCYTES-REFLEX 2+ (Negative); URINE NITRITE-REFLEX POSITIVE (Negative)
[2019-06-17 17:00] LABS: SQUAMOUS 0-3 Few /LPF (0-3); URINE WBC-REFLEX >25 Many /HPF (0-5); WBC CLUMPS Many (None Seen)
[2019-06-17 17:01] LABS: BACTERIA-REFLEX >30 Many /HPF (None Seen); CASTS None Seen /LPF (None Seen); CRYSTALS None Seen /LPF (None Seen); URINE RBC 3-10 Few /HPF (0-2)
[2019-06-17 17:31] LABS: HEMATOCRIT 31.1 % (42.0-52.0); HEMOGLOBIN 10.1 gm/dL (14.0-18.0); MCH 26.8 pg (26.0-34.0); MCHC 32.5 g/dL (28.0-37.0); MCV 82.5 fL (80.0-100.0); MPV 9.9 fl. (7.2-11.1); RBC 3.77 mil/uL (4.50-6.00); RDW-CV 21.8 % (10.5-14.5); WBC 4.9 thou/uL (4.0-11.0)
[2019-06-17 19:15] VITALS: BP 141/57
--- NOTE | 2019-06-18 05:21 | NUR ---
PATIENT HAS SLEPT WELL THROUGHOUT MOST OF THE NIGHT. VSS ON 2L 02 VIA NASAL CANNULA. PATIENT HAS NOT BEEN UP OUT OF BED DURING THE NIGHT. PATIENT IS INCONTINENT OF BLADDER AND HAS HAD SEVERAL LOOSE STOOLS AND USES THE BEDPAN. CHEYANNE CARE PERFORMED. MEDICATIONS GIVEN ORDERED AND CHARTED. FALL PRECAUTIONS IN PLACE AND HOURLY ROUNDS MADE. WILL CONTINUE WITH PLAN OF CARE AND NURSING TO MONITOR.
[2019-06-18 08:00] VITALS: BP 130/79
--- NOTE | 2019-06-18 15:43 | NUR ---
SW called pt in preparation for team conference tomorrow. Pt continues to express concern for being able to care for pt at home at dc. Pt wanting to be able to see pt. Pt wondering about specifics of diet, swallowing, if Dr Vazquez to follow up with pt or not while on rehab. Pt wondered if pt would be retested for COVID 19 and SW explained that if there was not need, pt would not be retested (in relation to pt to dc to SNF if that needed to be the dc plan from inpt rehab). SW to continue to follow to assist with safe dc planning.
--- NOTE | 2019-06-18 16:02 | NUR ---
PT A&Ox2, FORGETFUL AT TIMES. UP WITH 2 MOD ASSIST TO CAMMODE. HAD 2 BM TODAY. USED URINAL PROPERLY. TOLERATED MEALS. DENIED N/V. MINIMAL PAIN IN LEFT SHOULDER. FALL PRECAUTIONS IN PLACE. CALL LIGHT WITHIN REACH. WILL CONTINUE TO MONITOR.
[2019-06-18 19:15] VITALS: BP 136/63
--- NOTE | 2019-06-19 06:08 | NUR ---
PATIENT HAS SLEPT OFF AND ON DURING THE NIGHT. VSS ON 2L 02 VIA NASAL CANNULA. MEDICATIONS GIVEN ORDERED AND CHARTED. PATIENT HAS BEEN INCONTINENT OF URINE DURING THE NIGHT AND CHEYANNE CARE PERFORMED. PATIENT UPSET AT TIMES BECAUSE HE HAD TO WAIT A FEW MINUTES ON THE BEDPAN. NURSE AND SHIPWRIGHT EXPLAINED TO PATIENT THAT WE WERE HELPING OTHER PATIENTS BUT PATIENT WAS UPSET BECAUSE WE DIDN'T COME TO TEND TO HIM SOON HE CALLED AND WAS VERY IMPATIENT WITH US. FALL PRECAUTIONS IN PLACE AND HOURLY ROUNDS MADE. WILL CONTINUE WITH PLAN OF CARE, THERAPIES AND NURSING TO MONITOR.
[2019-06-19 09:28] VITALS: BP 152/62
[2019-06-19 09:32] VITALS: BP 138/61
--- NOTE | 2019-06-19 16:05 | NUR ---
PT A&Ox2-3. VITALS STABLE. UP WITH 1-2 MOD/MAX ASSIST. TOLERATING DIET. MODERATE PAIN IN LEFT SHOULDER, NO PAIN MEDS GIVEN. CALL LIGHT WITHIN REACH. FALL PRECAUTIONS IN PLACE. WILL CONTINUE TO MONITOR.
[2019-06-19 19:00] VITALS: BP 139/69
[2019-06-19 20:00] VITALS: BP 139/69
--- NOTE | 2019-06-20 06:12 | NUR ---
PT SLEPT OFF AND ON THIS SHIFT. MEDS GIVEN PER EMAR. INCONTINENCE OF BLADDER. BM X1 NOTED THIS SHIFT. FALL PRECAUTION IN PLACE. CALL LIGHT WITIN REACH. HOURLY ROUNDINGS MADE. WILL CONTINUE TO MONITOR.
[2019-06-20 08:00] VITALS: BP 148/69
--- NOTE | 2019-06-20 15:25 | NUR ---
ASSUMMED CARE OF PT AT 0730, PT ALERT AND ORIENTED, FORGETFUL, PT STATING HE IS GOING HOME TODAY, EXPLAINED TO PT THAT HE WAS NOT BEING DISCHARGED, CALLED AND STATED PT HAD CALLED HER AND ASKED HER TO COME AND PICK HIM UP, PT AGITATED AND ADAMENT HE WAS TOLD HE COULD BE DISCHARGED, DR HARDING SPOKE WITH PT AND , CALLED PT AND DID CALM HIM AND HE IS AGREEABLE TO STAY AFTER TALKING WITH , PT PLEASANT AND COOPERATIVE REST OF SHIFT, PT TRANSFERS WITH ASSIST OF 2, GB , PROSTHETIC, PT VOIDS PER URINAL AND IS ALSO INCONTINENT OF URINE, WEARS BRIEF, TAKING FOOD AND FLUIDS WELL, UP IN CHAIR MOST OF SHIFT, PARTICIPATED IN ALL THERAPIES HOURLY ROUNDING COMPLETED, ASSESSMENT COMPLETE, WILL CONTINUE TO MONITOR.
--- NOTE | 2019-06-20 17:18 | NUR ---
SW called and spoke with pt to review team conference summary and plan for pt to remain on rehab unit at least another week with team to reassess pt length of stay during team conference next Monday. Pt in agreement with plan. SW to continue to follow to assist with safe dc planning.
[2019-06-20 19:45] VITALS: BP 133/72
--- NOTE | 2019-06-21 06:20 | NUR ---
PT ALERT AND ORIENTED. PT SLEPT OFF AND ON THIS SHIFT. INCONTINENT OF BLADDER. OCCASSIONAL USE OF URINAL. BM NOTED THIS SHIFT. FALL PRECAUTION IN PLACE. CALL LIGHT WITHIN REACH. HOURLY ROUNDINGS MADE. WILL CONTINUE TO MONITOR.
[2019-06-21 08:02] VITALS: BP 130/62
--- NOTE | 2019-06-21 15:18 | NUR ---
ASSUMMED CARE OF PT AT 0730, PT ALERT AND ORIENTED, FORGETFUL, TRANSFERS WITH ASSIST OF 2, GB WALKER WITH PROSTHETIC, PT TAKING FOOD AND FLUIDS WELL, WEARS PULL UP, INCONTINENT OF URINE, NO BM THIS SHIFT, DENIES PAIN, PARTICIPATED IN ALL THERAPIES, HOURLY ROUNDING COMPLETED, ASSESSMENT COMPLETE, WILL CONTINUE TO MONITOR.
[2019-06-21 19:40] VITALS: BP 110/39
--- NOTE | 2019-06-22 05:02 | NUR ---
ASSUMED CARE AT 1920. ALERT AND ORIENTED. PLEASANT. DENIED ANY PAIN. USED URINAL BUT ALSO HAS URINARY INCONTINENCE. SLEPT MOST OF THE NIGHT. CALL LIGHT IN REACH AND BED ALARM ON.
[2019-06-22 08:34] VITALS: BP 163/67
--- NOTE | 2019-06-22 18:10 | NUR ---
PT A&Ox3. VITALS STABLE. UP WITH 1-2 TO CHAIR. ON RA. TOLERATING DIET. MILD PAIN IN LEFT SHOULDER AND IN RUQ OF ABD. NPO AT MIDNIGHT FOR ULTRASOUND. FALL PRECAUTIONS IN PLACE. CALL LIGHT WITHIN REACH. WILL CONTINUE TO MONITOR.
[2019-06-22 20:00] VITALS: BP 125/66
--- NOTE | 2019-06-23 05:54 | NUR ---
PATIENT SLEPT MOST OF THE NIGHT. PATIENT WAS INCONTIENT OF BOWEL AND BLADDER ONCE. PATIENT HAD NO COMPLAINTS OF PAIN. RT PLACED OXYGEN ON PATIENT WHILE SLEEPING SINCE HE IS REFUSING TO WEAR THE BIPAP HE DESATS IN THE 70'S ON RA WHILE SLEEPING. PATIENT DID NOT THINK IT WAS NECESSARY BUT DID AGREE TO WEAR IT. WILL CONTINUE TO MONITOR.
[2019-06-23 07:23] VITALS: BP 120/60
--- NOTE | 2019-06-23 17:11 | NUR ---
PT A&Ox4. VITALS STABLE. UP WITH 1-2. TOLERATING DIET. DENIED PAIN. INCONTINENT OF BLADDER AT TIMES. FALL PRECAUTIONS IN PLACE. CALL LIGHT WITHIN REACH. WILL CONTINUE TO MONITOR.
[2019-06-23 19:00] VITALS: BP 118/57
--- NOTE | 2019-06-24 05:09 | NUR ---
PATIENT HAS SLEPT WELL THROUGHOUT MOST OF THE NIGHT. VSS ON RA. NO C/O PAIN. MEDICATIONS GIVEN ORDERED AND CHARTED. PATIENT INCONTINENT OF URINE DURING THE NIGHT. PATIENT UP WITH ASSIST X 2. FALL PRECAUTIONS IN PLACE AND HOURLY ROUNDS MADE. WILL CONTINUE WITH THERAPIES AND NURSING TO CONTINUE MONITORING.
[2019-06-24 07:26] LABS: HEMATOCRIT 30.8 % (42.0-52.0); HEMOGLOBIN 9.9 gm/dL (14.0-18.0); MCH 26.8 pg (26.0-34.0); MCHC 32.2 g/dL (28.0-37.0); MCV 83.4 fL (80.0-100.0); MPV 8.7 fl. (7.2-11.1); RBC 3.7 mil/uL (4.50-6.00); RDW-CV 21.8 % (10.5-14.5); WBC 4.2 thou/uL (4.0-11.0)
[2019-06-24 07:31] LABS: CALCIUM 8.2 mg/dL (8.5-10.1); CREATININE 1.2 mg/dL (0.6-1.3); MAGNESIUM 1.2 mg/dL (1.8-2.4); POTASSIUM 4.4 mmol/L (3.5-5.1)
[2019-06-24 08:01] VITALS: BP 148/70
--- NOTE | 2019-06-24 18:14 | NUR ---
ASSUMED CARE AT 0730. ALERT ORIENTED PLEASANT COOPERATIVE. HX OF RESP FAILURE. TRANSFERS WITH G BELT WALKER AND PROSTHETIC RT. BKA. PARTICIPATING IN THERAPIES. VOIDS PER URINAL BUT ALSO HAS INCONTINENCE OF URINE WEARS PULLUPS. DID C/O L SHOULDER PAIN DURING AFTERNOON P.T. RESTING IN BED AFTER THERAPIES COMPLETED. BED ALARM GOES OFF WITH [employer]. TAKES MEDS WITHOUT DIFFICULTY.
--- NOTE | 2019-06-24 18:28 | NUR ---
HOURLY ROUNDING COMPLETED.
[2019-06-24 19:15] VITALS: BP 136/63; BP 151/89
--- NOTE | 2019-06-25 06:02 | NUR ---
PATIENT HAS SLEPT OFF AND ON DURING THE NIGHT. VSS ON RA. NO C/O PAIN. MEDICATIONS GIVEN ORDERED AND CHARTED. PATIENT USING THE BEDSIDE URINAL DURING THE NIGHT. PATIENT INCONTINENT OF URINE AT TIMES. CHEYANNE CARE PERFORMED. FALL PRECAUTIONS IN PLACE AND HOURLY ROUNDS MADE. PATIENT INSTRUCTED TO USE CALL LIGHT WHEN NEEDING ASSISTANCE. WILL CONTINUE WITH THERAPIES AND NURSING TO MONITOR.
[2019-06-25 08:00] VITALS: BP 151/89
--- NOTE | 2019-06-25 16:52 | NUR ---
ASSUMED CARE AT 0730. ALERT ORIENTED PLEASANT COOPERATIVE. HX OF RESP FAILURE. TRANSFERS WITH 1 ASSIST G BELT PROSTHETIC AND WALKER. PARTICIPATING IN THERAPIES. DENIES PAIN OR CONCERNS. INCONTINENT LARGE AMT. URINE IN W/C CLOTHES CHANGED CHEYANNE CARE GIVEN WEARS PULLUPS AND USES URINAL SOME OF THE TIME. UP TO BSC HAD A LARGE BM. NEEDS ASSIST WITH HYGEINE. USES CALL LIGHT APPROPRIATELY. HOURLY ROUNDING COMPLETED.
[2019-06-25 19:00] VITALS: BP 141/61
--- NOTE | 2019-06-26 04:43 | NUR ---
GENESIS SLEPT WELL DURING THIS SHIFT. PT ON ROOM AIR AT THIS TIME. PT DENIES PAIN. PT ASSISTED WITH REPOSITIONING. PT IS INCONTINENT OF URINE. FREQUENTLY USED ITEMS AND CALL LIGHT WITHIN REACH. SIDERAILS UPX3 AND BED ALARM ON. WILL CONTINUE TO MONITOR
[2019-06-26 08:26] VITALS: BP 154/70
--- NOTE | 2019-06-26 16:04 | NUR ---
PT REMAINED ALERT AND ORIENTED. PT UP TO W/C. DIET CHANGED TO MECHANICAL CHOPPED. PT DENIES ANY PAIN. PT STATES THEY WANT TO GO HOME. POSSIBLE TO DC SOON IF CAN SET UP 24/ FAMILY SUPPORT AT HOME. FALL RISK PRECAUTIONS IN PLACE. HOURLY ROUNDING COMPLETED. WILL CONTINUE TO MONITOR.
--- NOTE | 2019-06-26 16:50 | NUR ---
SW called pt to review team conference summary and discuss safe dc planning; SW had to leave a voicemail message requesting call back. Pt called back and JOSSELYN explained pt needs for 12/09 supervision and level of care needed with mobility and ADLs. SW offered family training and working torwards finalizing a safe dc plan of home vs facility if needed. Pt requested to look into her own schedule since she is going to have knee injections and eventual knee replacement. Then pt called back again and said that she is requesting pt to dc home with assistance on Monday. SW requested pt be able to attend family training on Monday and scheduled for 1 pm. JOSSELYN communicated this with team. SW to continue to follow to assist with safe dc planning for home with care and follow up services on Tuesday 06/27.
[2019-06-26 20:00] VITALS: BP 133/75
--- NOTE | 2019-06-27 05:17 | NUR ---
PATIENT SLEPT WELL DURING THIS SHIFT. PT USES CALL LIGHT APPROPRIATELY FOR BEDPAN. PT HAD FOUR SOFT BOWEL MOVEMENTS AND VOIDS DARK BROWN TEA COLORED URINE. PT ABLE TO ASSIST SOMEWHAT WITH TURNS. PT DENIES PAIN. FREQUENTLY USED ITEMS AND CALL LIGHT WITHIN REACH. SIDERAILS UPX3 AND BED ALARM ON. WILL CONTINUE TO MONITOR.
[2019-06-27 08:00] VITALS: BP 134/70
--- NOTE | 2019-06-27 14:38 | NUR ---
SW received message and then a call from pt explaining that she and pt decided pt really needed more time on rehab to continue therapies to make more progress towards goals. Pt cancelled family training for Monday stating that she really needed to make plans for her knee replacement. JOSSELYN discussed with team and Dr Moe recommends pt to continue rehab towards home with 12/09 assist and family training to be rescheduled for next week. Possible dc date to be set during team conference Sunday 07/02. SW to continue to follow to assist with safe dc planning and provided in home options and encouraged pt to choose and have ready for pt while pt is at work when pt dc because of the recommendation of caregiving/assistance/supervision necessary at all times.
--- NOTE | 2019-06-27 18:32 | NUR ---
PATIENT A&OX4. VSS. LUNG SOUNDS CLEAR. PATIENT PARTICIPATED IN ALL THERAPY EXERCISES TODAY. HELD COLACE D/T EXCESSIVE STOOLS. CALL LIGHT IN REACH. WHEELCHAIR LOCKED.
[2019-06-27 19:48] VITALS: BP 121/53
--- NOTE | 2019-06-28 04:04 | NUR ---
ASSUMED CARE OF PT 06/26/18 AT APPROX 1930. PT A&OX4, ON ROOM AIR, VSS. NO COMPLAINTS OF PAIN THIS SHIFT. ASSESSMENTS AND HOURLY ROUNDINGS COMPLETE. WILL CONTINUE TO MONITOR.
[2019-06-28 07:45] VITALS: BP 133/65
--- NOTE | 2019-06-28 18:35 | NUR ---
ALERT AND ORIENTED X4. UP WITH 1 ASSIST, GAIT BELT AND WALKER. DENIES PAIN TODAY BUT HAS HAD SOME RIGHT UPPER ABDOMINAL PAIN. DR NOTIFIED AND NEW ORDERS NOTED. O2 SAT REMAINS IN 90'S ON ROOM AIR. REMAINS NONWEIGHTBEARING ON RIGHT LOWER LEG STUMP. USES CALL LIGHT WHEN NEEDING ASSIST. FALL PRECAUTIONS IN PLACE. BED ALARM AND CHAIR ALARM USED.
[2019-06-28 20:04] VITALS: BP 124/53
[2019-06-28 20:06] LABS: ABSOLUTE EOSINOPHILS 0.1 thou/uL (0.0-0.7); ABSOLUTE LYMPHOCYTES 1.4 thou/uL (0.8-5.3); ABSOLUTE MONOCYTES 0.3 thou/uL (0.0-1.2); ABSOLUTE NEUTROPHILS 2.1 thou/uL (1.6-8.1); BASOPHILS 0.3 %; EOSINOPHILS 2.1 %; HEMATOCRIT 31.6 % (42.0-52.0); HEMOGLOBIN 10.2 gm/dL (14.0-18.0); LYMPHOCYTES 35.4 %; MCH 26.9 pg (26.0-34.0); MCHC 32.1 g/dL (28.0-37.0); MCV 83.9 fL (80.0-100.0); MONOCYTES 8.3 %; NUCLEATED RBCS 0 /100WBC; PLATELET COUNT* 111 thou/uL (150-400); POLYS 53.9 %; RBC 3.77 mil/uL (4.50-6.00); RDW-CV 21.4 % (10.5-14.5)
[2019-06-28 20:22] LABS: ALBUMIN 2.5 g/dL (3.4-5.0); CREATININE 1.4 mg/dL (0.6-1.3); POTASSIUM 4.3 mmol/L (3.5-5.1); TOTAL BILIRUBIN 0.6 mg/dL (<0.1-1.0); TOTAL PROTEIN 6.3 g/dL (6.4-8.2)
[2019-06-28 20:41] LABS: ANISOCYTOSIS 2+; PLATELET ESTIMATE DECREASED; POIKILOCYTOSIS 1+; POLYCHROMASIA Occasional
--- NOTE | 2019-06-29 00:33 | NUR ---
ASSUMED CARE AT 1930. PATIENT RESTING IN BED WITH HOB ELEVATED. DENIES PAIN. VOIDS PER URINAL. TAKES PILLS WHOLE WITH WATER. LT FOOT PUFFY, REFUSES TO ELEVATED ON PILLOW. AMYLASE AND LIPASE LABS WNL. MADE NPO AT TN FOR U/S OF ABD BEFORE BREAKFAST IN AM. NO C/O PAIN. HOURLY ROUNDS CONTINUE. BED ALARM ON. CALL LITE IN REACH.
--- NOTE | 2019-06-29 05:39 | NUR ---
SLEPT MOST OF THE NIGHT. NO C/O PAIN. WAS INCONTINENT OF LARGE AMOUNT OF URINE. DID HAVE BM PER BEDPAN. SKIN CARE DONE. PATIENT FINALLY ALLOWED STAFF TO REMOVE BRIEF TO ALLOW AIR TO BUTTOCKS. WILL RE APPLY PRIOR TO U/S. SMALL REDDENED AREA NOTED TO LEFT LATERAL LOWER LEG. CLEANSED WITH NS, MIPILEX APPLIED. HOURLY ROUNDS CONTINUE. BED ALARM ON. CALL LITE IN REACH.
[2019-06-29 08:22] VITALS: BP 137/56
--- NOTE | 2019-06-29 11:27 | NUR ---
REMAINS A&OX3 WITH EPISODES OF CONFUSION. RESPIRATIONS EVEN AND UNLABORED ON ROOM AIR. DENIES PAIN. MEDICATED WITH PRN PAIN MED PER MD ORDER. DRESSED AND OOB WITH RLE PROSTHESIS MOBILE IN WHEELCHAIR. FSBS 107 MG/DL THIS AM. 3+ PITTING EDEMA NOTED TO LLE. ENCOURAGED TO ELEVATE TOLERATED. CALL MONET AND PERSONAL ITEMS WITHIN REACH. NSG WILL CONTINUE TO ASSESS.
--- NOTE | 2019-06-29 17:59 | NUR ---
REMAINS ALERT AND AWAKE. RESPIRATIONS EVEN AND UNLABORED ON ROOM AIR. DENIES PAIN. UP WITH MINIMAL ASSIST AND PROSTHESIS. NO ISSUES REPORTED. CALL MONET AND PERSONAL ITEMS WITHIN REACH. NSG WILL CONTINUE TO ASSESS.
[2019-06-29 20:00] VITALS: BP 129/69
--- NOTE | 2019-06-30 04:38 | NUR ---
PT A&O, O2 SAT 90-92% RA. MEDS GIVEN ORDERED. NO C/O PAIN. EDEMA TO LLE. USES URINAL TO VOID. PT ASKED FOR BEDPAN BUT NO BM THIS SHIFT. BED ALARM ON. CALL LIGHT WITHIN REACH. WILL CONTINUE TO MONITOR.
[2019-06-30 08:22] VITALS: BP 171/48
--- NOTE | 2019-06-30 17:49 | NUR ---
ALERT AND ORIENTED WITH PERIODS OF FORGETFULNESS. UP WITH 1 ASSIST, GAIT BELT AND WALKER AND PROTHESIS ON RIGHT BKA. DENIED NEED FOR PAIN MEDICATION TODAY. CONTINENT OF BOWEL AND BLADDER. TAKES PILLS WITHOUT DIFFICULTY. USES CALL LIGHT WHEN NEEDING ASSIST. FALL PRECAUTIONS IN PLACE. BED ALARM AND CHAIR ALARM USED.
[2019-06-30 20:00] VITALS: BP 124/63
--- NOTE | 2019-07-01 05:12 | NUR ---
PT SLEPT WELL OVERNIGHT, INCONTINENT OR URINE OVERNIGHT, CHEYANNE CARE GIVEN AND NEW BRIEF PROVIDED PER PT REQUEST. REQUESTING BEDPAN FOR BM THIS MORNING, CHEYANNE CARE GIVEN. TAKING PILLS WHOLE WITHOUT DIFFICULTY WITH SIPS WATER. DENIES PAIN THIS SHIFT. ROOM AIR, VSS. NO LABS THIS MORNING. PT ABLE TO TURN SELF WITH MINIMAL ASSIST FOR PAD CHANGE AND TO USE BEDPAN. NEEDS ASSIST TO PLACE AND EMPTY URINAL AND PERFORM HYGIENE. AOX4, ABLE TO USE CALL LITE AND MAKE NEEDS KNOWN. BED ALARM ON FOR SAFETY.
[2019-07-01 07:47] VITALS: BP 137/71
--- NOTE | 2019-07-01 16:24 | NUR ---
ALERT AND ORIENTED X4. UP WITH 1 ASSIST, GAIT BELT AND WALKER. USES RIGHT BKA PROSTHESIS WHEN AMBULATING AND WITH TRANSFERS. TYLENOL GIVEN FOR SHOULDER PAIN. SMALL RED AREA NOTED ON LEFT LOWER LEG. DR HERE AND NOTIFIED. DR LOOKED AT AREA WHILE HERE. SIZE MARKED ON SKIN. PATIENT STATED HE DID NOT KNOW HOW IT HAPPEN. HE SAID HE DID NOT BUMP IT THAT HE COULD REMEMBER BUT HE SAID IT HAD BEEN THERE FOR 1-2 DAYS. LEFT LOWER LEG NOTED TO HAVE 2 + EDEMA. WILL CONTINUE TO MONITOR AND PASS INFO ON TO NEXT SHIFT. CALL LIGHT WITHIN REACH. FALL PRECAUTIONS IN PLACE, BED ALARM AND CHAIR ALARM USED.
--- NOTE | 2019-07-01 17:06 | NUR ---
SW placed wheelchair order with [facility] and will follow up with agency to ensure of delivery upon pt dc. Plan for family training tomorrow at 1 pm and then depending on outcome of family training and level of care needs for pt, pt to dc home with care on Monday after team conference vs SNF if needed for back up plan pending acceptance etc. SW to continue to follow to assist with finalizing safe dc plan.
[2019-07-01 19:15] VITALS: BP 140/79
--- NOTE | 2019-07-02 05:03 | NUR ---
ASSUMED CARES AT 1920. ALERT AND ORIENTED. PLEASANT. DENIED ANY PAIN. USED URINAL. DID HAVE SMALL STOOL INCONTINENCE. LEFT LEG 2+ EDEMA. SLEPT MOST OF THE NIGHT. CALL LIGHT IN REACH AND BED ALARM ON.
[2019-07-02 08:16] VITALS: BP 186/61
--- NOTE | 2019-07-02 16:19 | NUR ---
PATIENT SHOWERED TODAY WITH OT ASSITANCE. FAMILY TRAINING WITH PATIENTS AT 1300 TODAY. PATIENT TO POSSIBLY DISCHARGE HOME TOMORROW. PATIENTS REQUESTING TO SPEAK WITH DR. HARDING AND HOSPITALIST TOMORROW, WILL PASS ON TO [place] FOR TOMORROW STAFF. PATIENT CONTINUALLY STATING THE "NO DOCTORS HAVE SEEN ME TODAY." PATIENT AWARE THAT DR. MCKEON AND DR. HARDING HERE TODAY. NO COMPLAINTS OF PAIN THIS SHIFT.
--- NOTE | 2019-07-02 17:19 | NUR ---
SW called pt Varsha in preparation for team conference tomorrow and to follow up about dc planning. Pt said that she was ready to be able to take pt home and make adjustments as needed. Pt said she is taking 2 wks off of work and that her family actually will be able to alternate to assist with care. Pt has lift chair, benches and SW working on wc order for dc as well to be able to fit through pt 36 inch doorways. Pt would like either Dr Moe or a hospitalist to call her to answer some medical related questions like lab work, diagnoses, medications, results or any tests, dealing with medical changes, etc. Team already informed Dr Moe of pt request and SW will message the hospitalist tomorrow morning if needed as well. SW to continue to follow to assist with finalizing safe dc plan possible for tomorrow after team conference. pt/pt interested in services to follow at dc and SW will assist with arranging prior to pt dc.
[2019-07-02 19:15] VITALS: BP 138/76
[2019-07-03 08:29] VITALS: BP 140/76
[2019-07-03] MEDS ORDERED: XARELTO20 MG PO (13:50)
[2019-07-03 14:50] VITALS: BP 140/76
--- NOTE | 2019-07-03 15:15 | NUR ---
ASSESSMENT COMPLETED DOCUMENTED THIS MORNING. PATIENT VERY ANXIOUS, AND CAN BECOME QUITE IRRITABLE ABOUT STAYING IN HOSPITAL EVEN 1 MORE HOUR. TEAM CONFERENCES COMPLETED AND DISCHARGE AGREED UPON WITH DR. HARDING. DC ORDERS REC'D. DR. MCKEON CALLED AND MED RECONCILIATION COMPLETED, DR. MCKEON CALLED PT'S PER HER REQUEST. 1450 DC INTRUCTIONS GIVEN WITH UNDERSTANDING AND SIGNATURE OBTAINED. DCD VIA NEW W/C THAT HAD BEEN DELIVERED ACCOMPANIED BY NURSING STAFF, DC INSTRUCTIONS HANDED TO UPON TRANSFER TO CAR.
[2019-07-03 16:16] VITALS: BP 140/76
--- NOTE | 2019-07-03 16:17 | NUR ---
Team conference held today. SW called pt and reviewed team conference summary and plan for pt to dc home with , assistance, wc, and HH services to follow. Pt and pt in agreement with plan. Family training complete and therapy and pt reported that they felt family training went well. Dr Moe and Dr Seymour spoke with pt at pt request and pt was pleased to hear from them about the medical questions she had. SW checked matos of Xarelto and it will be $94.38 per month, pt said that they could afford this month and was grateful to be able to receive a copay assistance card that JOSSELYN will send to pt/family in the mail as pt had already left the building because according to nursing, pt was demanding to leave quickly. JOSSELYN arranged HH services through [facility] as in network with pt insurance and pt/family choice. Pt provided pt ride home; they made it home safely. WC was already delivered through [facility]; pt had all other needed DME at home.
== END 2019-07-03 15:00 | disposition home health service (06) | DRG 189 ==
LOC: M.REH 17:41 → M.3W 21:12 → M.REH 21:13
PROVIDERS: Internal Medicine; Nurse Practitioner; ADMIT Physical Medicine & Rehabilitation
PROC: 5A09357 Assistance with Respiratory Ventilation, Less than 24 Consecutive Hours, Continuous Positive Airway Pressure (ICD-10-PCS; principal; 2019-06-10)
PROC: 5A09357 Assistance with Respiratory Ventilation, Less than 24 Consecutive Hours, Continuous Positive Airway Pressure (ICD-10-PCS; 2019-06-12)
PROC: 5A09357 Assistance with Respiratory Ventilation, Less than 24 Consecutive Hours, Continuous Positive Airway Pressure (ICD-10-PCS; 2019-06-13)
PROC: 5A09357 Assistance with Respiratory Ventilation, Less than 24 Consecutive Hours, Continuous Positive Airway Pressure (ICD-10-PCS; 2019-06-14)
PROC: 5A09357 Assistance with Respiratory Ventilation, Less than 24 Consecutive Hours, Continuous Positive Airway Pressure (ICD-10-PCS; 2019-06-15)
PROC: 5A09357 Assistance with Respiratory Ventilation, Less than 24 Consecutive Hours, Continuous Positive Airway Pressure (ICD-10-PCS; 2019-06-16)
DX: J96.01 Acute respiratory failure with hypoxia (principal); I50.33 Acute on chronic diastolic (congestive) heart failure; E43 Unspecified severe protein-calorie malnutrition; G93.41 Metabolic encephalopathy; I82.401 Acute embolism and thrombosis of unspecified deep veins of right lower extremity; I13.0 Hypertensive heart and chronic kidney disease with heart failure and stage 1 through stage 4 chronic kidney disease, or unspecified chronic kidney disease; N39.0 Urinary tract infection, site not specified; E66.9 Obesity, unspecified; N18.3 Chronic kidney disease, stage 3 (moderate); E11.22 Type 2 diabetes mellitus with diabetic chronic kidney disease; J44.9 Chronic obstructive pulmonary disease, unspecified; E78.5 Hyperlipidemia, unspecified; R53.81 Other malaise; D64.9 Anemia, unspecified; D69.6 Thrombocytopenia, unspecified; E11.51 Type 2 diabetes mellitus with diabetic peripheral angiopathy without gangrene; K74.60 Unspecified cirrhosis of liver; K22.2 Esophageal obstruction; M19.012 Primary osteoarthritis, left shoulder; B96.20 Unspecified Escherichia coli [E. coli] as the cause of diseases classified elsewhere; K80.20 Calculus of gallbladder without cholecystitis without obstruction; G47.33 Obstructive sleep apnea (adult) (pediatric); E11.40 Type 2 diabetes mellitus with diabetic neuropathy, unspecified; E11.649 Type 2 diabetes mellitus with hypoglycemia without coma; Z68.33 Body mass index [BMI] 33.0-33.9, adult; Z88.2 Allergy status to sulfonamides; Z88.6 Allergy status to analgesic agent; Z88.8 Allergy status to other drugs, medicaments and biological substances; Z89.511 Acquired absence of right leg below knee; Z98.52 Vasectomy status; Z88.5 Allergy status to narcotic agent; Z68.35 Body mass index [BMI] 35.0-35.9, adult; Z79.4 Long term (current) use of insulin; Z79.84 Long term (current) use of oral hypoglycemic drugs

== ENCOUNTER 2019-07-07 15:57 | Inpatient (IN) | payer OTHER, MEDICARE ==
[~2019-07-07] VITALS: Ht 180.3 cm; Wt 111.6 kg
[2019-07-07 15:57] VITALS: BP 151/69
[~2019-07-07 15:57] MED LIST changes: +XARELTO15 MG PO; +XARELTO20 MG PO
[2019-07-07 16:24] LABS: URINE BILIRUBIN NEGATIVE (Negative); URINE BLOOD NEGATIVE (Negative); URINE CLARITY CLEAR; URINE COLOR YELLOW; URINE GLUCOSE-RANDOM NEGATIVE (Negative); URINE KETONES NEGATIVE (Negative); URINE LEUKOCYTES-REFLEX TRACE (Negative); URINE NITRITE-REFLEX NEGATIVE (Negative); URINE PROTEIN NEGATIVE (Negative); URINE SPECIFIC GRAVITY 1.015 (1.005-1.030); URINE UROBILINOGEN 0.2 E.U./dl (0.2-1.0)
[2019-07-07 16:35] LABS: ABSOLUTE BASOPHILS 0.1 thou/uL (0.0-0.2); ABSOLUTE EOSINOPHILS 0.1 thou/uL (0.0-0.7); ABSOLUTE LYMPHOCYTES 1.6 thou/uL (0.8-5.3); ABSOLUTE MONOCYTES 0.5 thou/uL (0.0-1.2); ABSOLUTE NEUTROPHILS 3.3 thou/uL (1.6-8.1); BASOPHILS 1.5 %; EOSINOPHILS 2.4 %; HEMATOCRIT 32.2 % (42.0-52.0); HEMOGLOBIN 10.2 gm/dL (14.0-18.0); LYMPHOCYTES 28.6 %; MCH 26.5 pg (26.0-34.0); MCHC 31.6 g/dL (28.0-37.0); MCV 83.9 fL (80.0-100.0); MONOCYTES 8.6 %; MPV 9.1 fl. (7.2-11.1); NUCLEATED RBCS 0 /100WBC; PLATELET COUNT* 138 thou/uL (150-400); POLYS 58.9 %; RBC 3.84 mil/uL (4.50-6.00); RDW-CV 20.1 % (10.5-14.5); WBC 5.6 thou/uL (4.0-11.0)
[2019-07-07 16:35] LABS: SQUAMOUS 4-10 Moderate /LPF (0-3); URINE RBC 0-2 Rare /HPF (0-2); URINE WBC-REFLEX 0-5 Rare /HPF (0-5)
[2019-07-07 16:36] LABS: CASTS None Seen /LPF (None Seen); CRYSTALS None Seen /LPF (None Seen)
[2019-07-07 16:39] LABS: BE -2.7 mmol/L (-2 to +3); PO2 64.1 mmHg (75.0-100.0); pH 7.345 (7.340-7.450)
[2019-07-07 16:44] LABS: APTT 36.5 Seconds (25.0-31.3); CALCIUM 7.7 mg/dL (8.5-10.1); CREATININE 1.4 mg/dL (0.6-1.3); INR 1.6; POTASSIUM 4.8 mmol/L (3.5-5.1); PROTIME 15.8 Seconds (9.20-11.50)
[2019-07-07 16:55] LABS: ALBUMIN 2.6 g/dL (3.4-5.0); MAGNESIUM 1.2 mg/dL (1.8-2.4); TOTAL BILIRUBIN 0.5 mg/dL (<0.1-1.0); TOTAL PROTEIN 6.4 g/dL (6.4-8.2)
[2019-07-07 17:45] LABS: ANISOCYTOSIS 2+; PLATELET ESTIMATE ADEQUATE; POIKILOCYTOSIS 1+; POLYCHROMASIA Occasional
[2019-07-07 18:36] VITALS: BP 122/73
[2019-07-07 19:02] VITALS: BP 162/72
[2019-07-07 20:00] VITALS: BP 158/57
[2019-07-08] VITALS: BP 150/76
[2019-07-08 04:00] VITALS: BP 152/71
[2019-07-08 08:00] VITALS: BP 137/68
[2019-07-08 12:00] VITALS: BP 133/7
[2019-07-08 16:00] VITALS: BP 135/56
--- NOTE | 2019-07-08 17:03 | EKG ---
[place] [address] ELECTROCARDIOGRAM REPORT Name: LEONIDAS MERCADO Room: [place] [address] ADM IN [facility].#: [id number] Admission: 07/07/19 Attend Phys: Bradford Flynn Discharge: Date of : 41 Date of Service: 07/07/19 1559 Report #: [id number] THIS REPORT FOR: //name// [facility] ED Test Date: 2019-07-07 Test Time: 15:59:33 Pat Name: LEONIDAS MERCADO Department: Room: [facility] Gender: M Neurological Surgeon: DARCY : 1945 Requested By: Veronica Smith Order Number: [id number] MD: Carson Bacon Measurements Intervals Driggs Rate: 85 P: 8 AR: 137 QRS: 34 QRSD: 83 T: 71 QT: 362 QTc: 431 Interpretive Statements Sinus rhythm Ventricular premature complex Low voltage, extremity leads Abnormal R-wave progression, early transition Baseline wander in lead(s) V1,V2 Compared to ECG 06/02/2019 13:29:45 No significant changes Electronically Signed On 07-08-2019 17:02:05 CDT by Carson Bacon [email or web address] <ELECTRONICALLY SIGNED> By: Carson Bacon MD, FACC 07/08/19 1702 1559 1559 Carson Bacon MD, FACC /EPI
[2019-07-08 19:50] VITALS: BP 164/54
[2019-07-09] VITALS: BP 127/57
[2019-07-09 04:54] VITALS: BP 146/69
[2019-07-09 06:45] LABS: ABSOLUTE LYMPHOCYTES 0.9 thou/uL (0.8-5.3); ABSOLUTE MONOCYTES 0.3 thou/uL (0.0-1.2); ABSOLUTE NEUTROPHILS 2.6 thou/uL (1.6-8.1); BASOPHILS 0.4 %; EOSINOPHILS 1.1 %; HEMATOCRIT 28.6 % (42.0-52.0); HEMOGLOBIN 9.3 gm/dL (14.0-18.0); LYMPHOCYTES 22.9 %; MCH 27.1 pg (26.0-34.0); MCHC 32.7 g/dL (28.0-37.0); MCV 82.7 fL (80.0-100.0); MONOCYTES 8.2 %; MPV 8.8 fl. (7.2-11.1); NUCLEATED RBCS 0 /100WBC; PLATELET COUNT* 114 thou/uL (150-400); POLYS 67.4 %; RBC 3.45 mil/uL (4.50-6.00); RDW-CV 19.9 % (10.5-14.5); WBC 3.8 thou/uL (4.0-11.0)
[2019-07-09 06:54] LABS: CALCIUM 8.4 mg/dL (8.5-10.1); CREATININE 1.4 mg/dL (0.6-1.3); POTASSIUM 3.6 mmol/L (3.5-5.1)
[2019-07-09 07:43] VITALS: BP 136/62
[2019-07-09 16:00] VITALS: BP 121/62
[2019-07-09 20:12] VITALS: BP 124/68
[2019-07-10] VITALS: BP 103/58
[2019-07-10 04:00] VITALS: BP 128/61
[2019-07-10 08:00] VITALS: BP 113/68
[2019-07-10 12:20] VITALS: BP 129/58
[2019-07-10 16:13] VITALS: BP 127/61
[2019-07-11] VITALS: BP 121/59
[2019-07-11 04:00] VITALS: BP 117/52
[2019-07-11 05:51] LABS: ABSOLUTE EOSINOPHILS 0.1 thou/uL (0.0-0.7); ABSOLUTE MONOCYTES 0.3 thou/uL (0.0-1.2); BASOPHILS 0.6 %; EOSINOPHILS 2.2 %; HEMATOCRIT 28.8 % (42.0-52.0); HEMOGLOBIN 9.4 gm/dL (14.0-18.0); LYMPHOCYTES 29.1 %; MCH 26.9 pg (26.0-34.0); MCHC 32.5 g/dL (28.0-37.0); MCV 82.6 fL (80.0-100.0); MONOCYTES 8.3 %; MPV 9.1 fl. (7.2-11.1); NUCLEATED RBCS 0 /100WBC; PLATELET COUNT* 106 thou/uL (150-400); POLYS 59.8 %; RBC 3.48 mil/uL (4.50-6.00); RDW-CV 19.4 % (10.5-14.5); WBC 3.4 thou/uL (4.0-11.0)
[2019-07-11 06:01] LABS: CALCIUM 7.9 mg/dL (8.5-10.1); CREATININE 1.5 mg/dL (0.6-1.3); POTASSIUM 3.3 mmol/L (3.5-5.1)
[2019-07-11 08:00] VITALS: BP 123/54
[2019-07-11 12:00] VITALS: BP 118/56
[2019-07-11 16:00] VITALS: BP 135/85
[2019-07-11 20:00] VITALS: BP 96/43
[2019-07-12] VITALS: BP 107/59
[2019-07-12 04:00] VITALS: BP 117/55
[2019-07-12 08:00] VITALS: BP 140/70
[2019-07-12 09:40] VITALS: BP 140/70
[2019-07-12] MEDS ORDERED: FUROSEMIDE 40 M40 MG PO (11:50)
[2019-07-12] MEDS ORDERED: SPIRONOLACTONE25 MG PO (11:52)
[2019-07-12] MEDS ORDERED: AUGMENTIN 875-1 EACH PO (11:54)
== END 2019-07-12 13:20 | DRG 291 ==
LOC: M.ERS 15:57 → M.2W 16:59 → M.TBA-ER 16:59 → M.2W 18:45
PROVIDERS: Internal Medicine; Personal Emergency Response Attendant; ADMIT Internal Medicine
DX: I13.0 Hypertensive heart and chronic kidney disease with heart failure and stage 1 through stage 4 chronic kidney disease, or unspecified chronic kidney disease (principal); J96.21 Acute and chronic respiratory failure with hypoxia; J18.9 Pneumonia, unspecified organism; I50.33 Acute on chronic diastolic (congestive) heart failure; N39.0 Urinary tract infection, site not specified; J44.0 Chronic obstructive pulmonary disease with (acute) lower respiratory infection; E11.51 Type 2 diabetes mellitus with diabetic peripheral angiopathy without gangrene; E78.5 Hyperlipidemia, unspecified; N18.3 Chronic kidney disease, stage 3 (moderate); E66.9 Obesity, unspecified; E11.22 Type 2 diabetes mellitus with diabetic chronic kidney disease; G47.33 Obstructive sleep apnea (adult) (pediatric); K74.60 Unspecified cirrhosis of liver; D64.9 Anemia, unspecified; D69.6 Thrombocytopenia, unspecified; B96.1 Klebsiella pneumoniae [K. pneumoniae] as the cause of diseases classified elsewhere; Z89.511 Acquired absence of right leg below knee; Z98.52 Vasectomy status; Z68.34 Body mass index [BMI] 34.0-34.9, adult; Z88.6 Allergy status to analgesic agent; Z88.2 Allergy status to sulfonamides; Z88.8 Allergy status to other drugs, medicaments and biological substances; Z87.891 Personal history of nicotine dependence